=== PATIENT | female | born 1975 | race Two or more races ===

== ENCOUNTER → 2024-06-13 | Outpatient (CLI) | payer MEDICAID, SELFPAY ==
--- NOTE | 2024-06-13 15:00 | XR_ITS ---
Examination: Transvaginal ultrasound of the pelvis, complete Technique: Transvaginal sonographic images pelvis performed using olson scale imaging Exam date and time: June 13, 2024 1517 hours Comparison 03/31/2024 INDICATIONS: 5.8 cm uterine fundal mass on pelvic sonogram report 22/01/2024 pelvic pain 15 years FINDINGS: Uterus 9.0 x 4.9 x 4.4 cm Uterine fundal mass 5.1 x 3.6 x 4.6 cm Endometrial stripe 0.3 cm Right ovary 3.2 x 2.4 x 2.8 cm arterial flow Left ovary 3.8 x 2.8 x 3.4 cm arterial flow mild free fluid adjacent to left ovary IMPRESSION: Uterine fundal mass 5.1 x 3.6 x 4.6 cm, likely fibroid degeneration Mild free fluid adjacent to the left ovary, clinical correlation advised, differential would include ruptured ovarian cyst, pelvic inflammatory disease.
== END | disposition home or self-care (01) ==
PROVIDERS: PCP Obstetrics & Gynecology; Referring Provider Obstetrics & Gynecology; Visit Provider Obstetrics & Gynecology
DX: R19.09 Other intra-abdominal and pelvic swelling, mass and lump (principal)
CPT/HCPCS: 76830

== ENCOUNTER 2024-08-24 17:21 | Inpatient (IN) | payer MEDICAID, SELFPAY ==
--- NOTE | 2024-08-23 07:00 | EKG_ITS ---
[facility] Test Date: 2024-08-23 Pat Name: MARIANN CORDERO Department: Room: - Gender: Female Transit Mixer Driver: RT STUDENT : 1975 Requested By: Fidelia Anand Order Number: [id number] Reading MD: Fidelia Anand Measurements Intervals [place] Rate: 76 P: 13 AK: 175 QRS: -19 QRSD: 93 T: 18 QT: 372 QTc: 420 Interpretive Statements SINUS RHYTHM LOW QRS VOLTAGE IN PRECORDIAL LEADS INCOMPLETE RIGHT BUNDLE BRANCH BLOCK No previous ECG available for comparison /store/S0/[id number]/[id number].pdf
[2024-08-23 07:39] VITALS: BMI 32.9
[2024-08-23 09:13] LABS: Collection Type, Urine Clean Catch
[2024-08-23 09:28] LABS: Bilirubin,Urine Negative (Negative); Blood,Urine Negative (Negative); Clarity,Urine Clear (Clear/Hazy); Color,Urine Lt-Yellow (Lt Yel-Yel); Glucose, Urine Negative (Negative); Ketones,Urine Negative (Negative); Leukocyte Esterase,Urine Negative (Negative); Nitrite,Urine Negative (Negative); Protein,Urine Negative (Neg - Trace); RBC,Urine 3 /hpf (0-3); Specific Gravity,Urine 1.026 (1.001-1.035); Squamous Epithelial Cell,Urine 2 /hpf (0-5); Urobilinogen,Urine Negative mg/dL (0.0-1.0); WBC,Urine < 1 /hpf (0-5)
[2024-08-23 09:35] LABS: Alanine Aminotransferase 32 U/L (10-49); Albumin, Serum 4.5 gm/dL (3.5-5.0); Albumin/Globulin Ratio 1.6 (1.2-2.2); Alkaline Phosphatase 73 U/L (46-116); Anion Gap 9 (7-16); Aspartate Amino Transferase 20 U/L (0-34); BUN/Creatinine Ratio 26 Ratio (12-20); Basophils # (Auto) 0.1 Thou/mm3 (0.0-0.2); Basophils % (Auto) 1 % (0-2.5); Bilirubin,Total 0.4 mg/dL (0.3-1.2); Blood Urea Nitrogen 18 mg/dL (9-23); Calcium 9.4 mg/dL (8.3-10.6); Calcium (Corrected) 9.4 mg/dL (8.5-10.1); Carbon Dioxide 26.3 mMol/L (20.0-31.0); Chloride 102 mMol/L (98-107); Creatinine (Component) 0.7 mg/dL (0.6-1.3); Eosinophils # (Auto) 0.2 Thou/mm3 (0.0-0.5); Eosinophils % (Auto) 2 % (0-10); Estimated Creatinine Clearance 104.9 mL/min (>60); Globulin 2.9 gm/dL (2.3-3.5); Glucose 100 mg/dL (74-106); Hemoglobin 13.7 g/dL (12.0-16.0); Immature Granulocytes % (Auto) 1 % (0-0); Immature Granulocytes Auto 0.08 Thou/mm3 (0.00-0.00); Lymphocytes # (Auto) 2.8 Thou/mm3 (1.0-4.8); Lymphocytes % (Auto) 31 % (10-50); Mean Corpuscular HGB Conc 33.4 g/dl (31.0-37.0); Mean Corpuscular Hemoglobin 29.5 pg (25.0-35.0); Mean Corpuscular Volume 88 fL (80-100); Monocytes # (Auto) 0.7 Thou/mm3 (0.0-0.8); Monocytes % (Auto) 7 % (0-12); Neutrophils # (Auto) 5.3 Thou/mm3 (1.8-7.7); Neutrophils % (Auto) 58 % (37-80); Nucleated Red Blood Cell % 0 /100 WBC (0); Osmolality,Calculated 275 (275-295); Platelet Count 354 Thou/mm3 (140-440); Potassium 4.3 mMol/L (3.4-5.1); RDW Standard Deviation 42.1 fL (36.4-46.3); Red Blood Count 4.64 Miln/mm3 (4.00-5.20); Sodium 137 mMol/L (136-145); Total Protein 7.4 gm/dL (5.7-8.2); White Blood Count 9.1 Thou/mm3 (3.6-11.0); eGFR > 60 See Note
[2024-08-23 09:36] LABS: HCG Qualitative,Urine Negative
[2024-08-24] VITALS (13 sets, daily range): BP systolic 120–161; BP diastolic 82–103; PULSE 92–121; RESP 12–22; TEMP 36–36.6; O2SAT 93–99; BMI 32.8; BMI 35.4
[2024-08-24] MEDS: RINGERS LACTATED 1000 ML 1,000 ML 20 ML IV (12:32)
--- NOTE | 2024-08-24 15:16 | ESOP_ITS ---
Date of Procedure 08/24/24 Pre Op Diagnosis Pelvic adhesions Post Op Diagnosis Pelvic adhesions Injury to sigmoid colon Procedure Lysis of adhesions, repair of sigmoid colon injury Findings Adhesions of small and large bowel into the uterus. A small full-thickness injury to the sigmoid colon that was repaired. No leakages of stool Procedure Description Patient was scheduled for hysterectomy and salpingo-oophorectomy by Dr. Anand for persistent pelvic pain and uterine mass. Upon my arrival into the operating room patient had already undergone general endotracheal anesthesia. She is already had a Pfannenstiel incision. Upon inspection patient was noted to have adhesions of small and large bowel into the uterus. Dr. Anand had already lysed some small bowel adhesions. Upon my inspection there were some adhesions of small bowel into the uterus that was lysed. There was significant and dense adhesions of sigmoid colon into the uterine mass. While lysing the adhesions there was a small approximately 6 mm full-thickness injury to sigmoid colon. There was no evidence of leakage or bleeding. The injury was closed in 2 layer s. The first layer was interrupted sutures using 2-0 Vicryl and that was reinforced with 3-0 silk sutures in a Lembert fashion. There were no further adhesions noted. Hemostasis was adequate and satisfactory at this time. This concluded my portion of the operation. Dr. Aannd will proceed with her hysterectomy and salpingo-oophorectomy and she will be dictating her portion of the operation separately. Anesthesia GETA Pathology / specimen None Estimated Blood Loss 5 Surgeon Magnolia Storey MD Surgical Staff Operation Date: 08/24/24 14:15 Case Staff Anesthesiologist: Stefano Norton RNdairy equipment installer: Pari Griffiths
--- NOTE | 2024-08-24 16:55 | PD.GYNPROC ---
Operative Note - GLASS BENDER Procedure Date of procedure: 08/24/24 Procedure Performed: Total abdominal hysterectomy / Bilateral salpingo-oophorectomy / lysis of adhesions / repair of bowel tear Indication: pelvic pain not responding to conservative treatment Pre-Op diagnosis: pelvic pain uterine fibroid , left ovarian cyst Post-Op diagnosis: pelvic pain . pelvic adhesions , fundal fibroid , endometriotic cyst in the posterior cul desac , adhesions between bowel and adnexa Anesthesia type: General Procedure description: After an informed consent, patient was brought into the operating room. She received general anesthesia, she was prepped and draped in the usual sterile fashion after Watkins catheter was left in situ. Surgical site infection prophylaxis was given. Timeout was done. Surgical team was ready and scrubbed. A Pfannenstiel incision was made, and carried down from skin subcutaneous tissue to the rectus sheath. The rectus sheath was incised laterally, peritoneal cavity entered atraumatically. Uterus was identified by palpation into the peritoneal cavity, there is a fundal fibroid 4 to 5 cm, there is a large bluish cyst in the posterior cul-de-sac about 4 to 5 cm, the small and large bowel is stuck by flimsy and thick adhesions onto the right adnexa , the posterior uterus, there are also some adhesions between the small and large bowel and the left adnexa, these are flimsy and these were just lysed during palpation and exploration of the uterus and adnexa and during exploration. Due to the thick adhesions noted between the large bowel and the adnexa and the posterior uterus, surgical help was sought, and intraoperative consultation obtained from Dr. Storey. Who came in and completed the lysis of adhesions, and also found a small enterotomy hole, and did its repair. Please see his operative note for details. O'Bernard-O'Ragsdale retractor was placed, the uterine fundus is held with double-tooth tenaculum, after the lysis of adhesions , the hysterectomy is begun. The cornual ligaments on the right side and the left side are clamped coagulated and cut with the help of Endo seal. The round ligaments on each side are clamped , coagulated and cut as well with the help of Endo seal device. The uterovesical fold of peritoneum which is thick and adherent, is by sharp dissection and a plane between the bladder and the lower uterine segment and cervix is obtained. The uterine pedicles on both sides at the isthmus, are then clamped with Jorge A clamps, cut and doubly ligated. Successive Jorge A clamps were placed medial to the uterine pedicle on both sides, and the cardinal ligaments, and then the uterosacral ligaments, are both clamped cut and ligated using 0 Vicryl pop-off sutures on either side, until the vaginal angles are reached. Then the uterus with the fibroid and the cervix is removed, the vaginal angles are secured with 0 Vicryl suture, and the vaginal cuff is secured with running and interrupted 0 Vicryl suture. Hemostasis is good. Patient also received IV methylene blue midway during the surgery, the Watkins was clamped, there was no spill of any blue dye into the operative field. This was followed by removing the Watkins clamp, and then both adnexa were removed by clamping cutting and doubly ligating the infundibulopelvic ligaments on both sides, clamping and cutting down as close as possible to the ovary. The Watkins catheter bag is seeing blue-green urine and adequate amount. Irrigation is done. Return is clear. Hemostasis is good. The vaginal angles were suspended with the cardinal ligaments and the uterosacrals on both sides. Surgicel was sprinkled in the posterior cul-de-sac The ureters were palpated on each side and appeared normal. The count was correct for the instrument, sponges and needles The retractor was removed the lap count was correct, peritoneal closure done with 2-0 Vicryl Rectus abdominis muscle approximated with 2-0 Vicryl Fascia closed with 0 Vicryl. With reinforcing sutures. Robert's fascia closed with 3-0 plain catgut. Skin approximated with Monocryl. Perineo dressing applied. Compression dressing applied. Patient sent to recovery in a stable condition. Fluids: crystalloid Specimen: uterus, left tube, right tube, left ovary, right ovary and other (fibroid ) Implants: Surgicell powder Estimated blood loss (ml): 150 Findings: uterus with a 4 to 5 cm fundal fibroid, bowel adhesions ,thick between R adnexa and the small and large bowel , 5 cm endometriotic cyst with hemorrhagic fluid in the posterior cul de sac , evidence od endometriotic blue lesions along the adnexa and along the isthmus Complications: enterotomy Narrative: Due to thick pelvic adhesions between the bowel and adnexa and posterior uterus , surgical consultation was requested from Dr Storey who came in and performed lysis of adhesions for the thicker adhesions and also repaired the enterotomy /Please see his operative note for his part of the surgery Surgical staff Operation Date: 08/24/24 14:15 Case Staff Anesthesiologist: Stefano Norton RNseafood service team member: Pari Griffiths Diagnosis Discharge Diagnosis (1) S/P total abdominal hysterectomy and bilateral salpingo-oophorectomy: Status: Acute Problem details: doing well and appropriately post operatively (2) Status post laparotomy with lysis of adhesions: Status: Acute Problem details: had bowel perforation during lysis of adhesions / endometriosis severe (3) Bowel perforation: Status: Acute Problem details: intraoperative complication and repaired intraoperatively (4) Endometriosis of bilateral fallopian tubes, unspecified depth: Status: Acute Problem details: and also ovaries and pelvis with thick adhesions and had definitive surgery for it this admission Problem List Completed Was Problem List Reviewed/Reconciled?: Yes
--- NOTE | 2024-08-24 17:03 | SUR.PHASEI ---
Pt. arrived to recovery via bed, eyes closed, responds to verbal commands, VSS, no c/o pain or nausea, pt. states I am thirsty , explained to pt. Dr. Anand ordered strict NPO for right now. Lung sounds clear, equal expansion oumar., pt. receiving 5 liters 02 via NC, dressing to lower abdomen, leslie, telfa, fluffs and metaport tape intact, no active bleeding or redness noted, pt. has espitia catheter in place, light blue fluid in collection bag. Report received from Patrick BRICE and Dr. Norton.
--- NOTE | 2024-08-24 18:04 | SUR.PHASEI ---
Called and gave report on pt. s/p surgery to Rahel BRICE on M/S unit.
[2024-08-24] MEDS: RINGERS LACTATED 1000 ML 1,000 ML 125 ML IV (18:08)
[2024-08-24] MEDS: Morphine Sulfate PF 1 MG/ML PCA VIAL 30 ML 30 MG IV (18:19)
--- NOTE | 2024-08-24 18:41 | SUR.PHASEI ---
Transferred pt. to room 371 via bed with all of belongings, VSS, set up ACCOUNTING METHODS ANALYST pump for pain management and educated pt. on use of button, IV flushed and patent, dressing to lower abdomen CDI, scant amount of bright red blood to yasmany-pad, espitia catheter in place. Rahel BRICE assumed care of pt.
[2024-08-24] MEDS: SODIUM CHLORIDE 0.9% IV (20:01)
[2024-08-24] MEDS: CEFOTETAN IV (20:01)
[2024-08-24] MEDS: HYDROmorphone INJ 2 MG/ML VIAL 1 MG IV (20:11)
[2024-08-25] VITALS (7 sets, daily range): BP systolic 112–115; BP diastolic 72–79; PULSE 90–97; RESP 12–19; TEMP 36.2–36.6; O2SAT 95–98; BMI 35.4
[2024-08-25] MEDS: CEFOXITIN 2 GM in SODIUM CHLORIDE 0.9% (Popper) 50 ML IV ×4 (00:03→17:38)
[2024-08-25] MEDS: HYDROmorphone INJ 2 MG/ML VIAL 1 MG IV ×2 (00:25→06:01)
[2024-08-25] MEDS: RINGERS LACTATED 1000 ML 1,000 ML 125 ML IV ×2 (02:58→11:18)
--- NOTE | 2024-08-25 04:24 | PC.NURSE ---
feminine pad with small amount of blood- Laura care done, changed pad.
[2024-08-25 05:09] LABS: Basophils % (Auto) 0 % (0-2.5); Eosinophils % (Auto) 0 % (0-10); Hematocrit 36.3 % (36.0-46.0); Hemoglobin 12.4 g/dL (12.0-16.0); Immature Granulocytes % (Auto) 1 % (0-0); Immature Granulocytes Auto 0.09 Thou/mm3 (0.00-0.00); Lymphocytes # (Auto) 1.5 Thou/mm3 (1.0-4.8); Lymphocytes % (Auto) 13 % (10-50); Mean Corpuscular HGB Conc 34.2 g/dl (31.0-37.0); Mean Corpuscular Hemoglobin 29.6 pg (25.0-35.0); Mean Corpuscular Volume 87 fL (80-100); Monocytes # (Auto) 0.9 Thou/mm3 (0.0-0.8); Monocytes % (Auto) 8 % (0-12); Neutrophils % (Auto) 78 % (37-80); Nucleated Red Blood Cell % 0 /100 WBC (0); Platelet Count 314 Thou/mm3 (140-440); Red Blood Count 4.19 Miln/mm3 (4.00-5.20); White Blood Count 11.5 Thou/mm3 (3.6-11.0)
[2024-08-25 05:55] LABS: Albumin, Serum 3.8 gm/dL (3.5-5.0); Anion Gap 10 (7-16); BUN/Creatinine Ratio 19 Ratio (12-20); Blood Urea Nitrogen 13 mg/dL (9-23); Calcium 8.4 mg/dL (8.3-10.6); Calcium (Corrected) 8.6 mg/dL (8.5-10.1); Carbon Dioxide 24.7 mMol/L (20.0-31.0); Chloride 103 mMol/L (98-107); Creatinine (Component) 0.7 mg/dL (0.6-1.3); Estimated Creatinine Clearance 109.3 mL/min (>60); Glucose 132 mg/dL (74-106); Osmolality,Calculated 277 (275-295); Phosphorous 3.2 mg/dL (2.4-5.1); Sodium 138 mMol/L (136-145); eGFR > 60 See Note
[2024-08-25] MEDS: KETOROLAC INJ 30 MG/ML VIAL IVP ×2 (11:18→19:53)
--- NOTE | 2024-08-25 12:04 | PD.SURPROG ---
Documentation for date of: 08/25/24 Subjective Subjective Narrative: Patient is seen and examined. She is resting comfortably. She is complaining of pain, controlled with OR ASSISTANT. She denies nausea or vomiting. She has not passed flatus or bowel movement yet Exam Vital Signs Temp Pulse Resp BP Pulse Ox O2 Del Method O2 Flow Rate 98 F 100 12 147/90 H 97 Nasal Cannula 1 08/24/24 20:00 08/24/24 23:16 08/25/24 07:00 08/24/24 20:00 08/24/24 23:16 08/24/24 20:00 08/24/24 23:16 Constitutional Constitutional: no acute distress Routine Abdominal Exam Comments: Abdomen is soft and mildly distended. She has hypoactive bowel sounds. Incision with dressings clean, dry and intact Assessment & Plan Assessment Additional comments: Postop day #1 status post FAMILIA/BSO, lysis of adhesions and repair of sigmoid injury Plan Continue IV antibiotics. Will keep n.p.o. Start clear liquids tomorrow. Increase ambulation and start using incentive spirometer Procedures Procedures Lysis of adhesions, repair of sigmoid colon injury
[2024-08-25] MEDS: ASCORBIC ACID 250 MG TABLET 500 MG PO ×2 (12:29→21:54)
[2024-08-25] MEDS: ZINC SULFATE 220 MG CAPSULE PO (12:29)
[2024-08-25] MEDS: DOCUSATE SOD 100 MG CAPSULE PO ×2 (12:29→21:54)
--- NOTE | 2024-08-25 13:34 | PC.SS ---
Patient Lona Pickard is a 49 Year old male admitted for Total ABD [id number]. SS met with patient at bedside to review Demographic information. Patient report that she lives at home with her , Lew Rod who she reports is surrogate decision maker, [phone]. Choice of pharmacy is [facility]. Patient's PCP is Angely Devi. Patient reports she does not utilize any source of DME to assist with ambulation. At time of discharge patient will return home. SS will stand by for further needs. Nexrt of Kin, , Lew Rod [phone] Discharge plan: Home
[2024-08-25] MEDS: ONDANSETRON INJ 2 MG/ML INJ 2 ML 4 MG IV ×2 (15:28→21:56)
--- NOTE | 2024-08-25 16:17 | ESPR_ITS ---
Documentation for date of: 08/25/24 GROUNDS/MAINTENANCE SPECIALIST Subjective Subjective Subjective: patient reports feeling better, pain is well controlled, patient reports nausea and other (not passed flatus yet / feels burps / nausea better after Zofran , voiding urine spontaneously. ) Exam Vital Signs Temp Pulse Resp BP Pulse Ox O2 Del Method O2 Flow Rate 97.8 F 90 14 114/72 95 Room Air 1 08/25/24 12:00 08/25/24 12:00 08/25/24 15:00 08/25/24 12:00 08/25/24 12:00 08/25/24 12:00 08/24/24 23:16 Narrative Exam Patient reports feeling fine she said before surgery she used to have a lot of back pain and lower abdominal pain and that is feeling better. She feels like she has gas in her belly and she is burping, but she has not passed flatus yet Explained to the patient and spouse the presence of thick adhesions between the back of the uterus and the adnexa posterior peritoneum and bowel and intestines, possibly during the separation of the intestines bowel and the posterior surface of the uterus and the posterior adnexa small perforation happened on to the intestine. Questions answered. They took the explanation well. Constitutional Constitutional: no acute distress, obese and cooperative Routine Neck Exam Neck: Present supple and full ROM Routine Respiratory Exam Respiratory: Present chest non-tender, lungs clear, normal breath sounds, no resp distress and CTA bilaterally Routine Cardiovascular Exam Cardiovascular: Present RRR Routine Abdominal Exam Abdominal: Present soft Comments: Hypoactive sounds, tenderness appropriate, no rebound or guarding Routine Back/Spine/Pelvis Exam Back/Spine: Present full ROM and warmth Comments: No CVA angle tenderness Routine Skin Exam Skin: Present intact and normal turgor Routine Neurological Exam Neurological: Present alert, oriented X3, CN II-XII intact, moving all extremities and normal tone Routine Psychiatric Exam Psychiatric: Present normal affect and cooperative Urinary Catheter Management Cath placed during this visit: yes, but has since been removed by the nurse Removal date: 08/25/24 Removal time: 07:25 GROUNDS/MAINTENANCE SPECIALIST - PN: Obj Data Labs 08/25/24 04:26 08/25/24 04:26 Labs: Laboratory Results - last 24 hr 08/25/24 04:26 WBC 11.5 H RBC 4.19 Hgb 12.4 Hct 36.3 MCV 87 MCH 29.6 MCHC 34.2 RDW Std Deviation 41.0 Plt Count 314 D Neut % (Auto) 78 Lymph % (Auto) 13 [place] % (Auto) 8 Eos % (Auto) 0 Baso % (Auto) 0 Neut # (Auto) 9.0 H Lymph # (Auto) 1.5 [place] # (Auto) 0.9 H Eos # (Auto) 0.0 Baso # (Auto) 0.0 Immature Gran # (Auto) 0.09 H Absolute Nucleated RBC 0.00 Immature Gran % 1 H Nucleated RBC % 0 Sodium 138 Potassium 4.0 Chloride 103 Carbon Dioxide 24.7 Anion Gap 10 BUN 13 Creatinine 0.7 Estim Creat Clear Calc 109.3 eGFR > 60 BUN/Creatinine Ratio 19 Glucose 132 H Calculated Osmolality 277 Calcium 8.4 Corrected Calcium 8.6 Phosphorus 3.2 Albumin 3.8 D GROUNDS/MAINTENANCE SPECIALIST - A/P Postoperative Procedures: Procedures Operation Date: 08/24/24 14:15 Actual Procedure Side Surgeon p Hysterectomy, Abdominal Poss BSO Fidelia Anand MD FAMILIA/BSO/lysis of adhesions and small enterotomy repair Postoperative day: 1 Postoperative status: doing well Postoperative plan: see orders and ambulate Time Spent With Patient Time: Total time spent is greater than 50% in coordination of care (as documented) at patient's floor/unit and/or counseling patient: Time with patient: 25 - 35 minutes
--- NOTE | 2024-08-25 17:07 | PD.ANESPROG ---
Documentation for date of: 08/25/24 POST ANESTHESIA NOTE: Patient had GETA for hysterectomy related surgery yesterday. I saw her briefly earlier today afternoon in 371 with her family visitors at bedside and she was standing up by bedside, NAD, denied any problems from anesthesia. Stefaon Norton MD Anesthesia Progress Note Progress Note Most recent Vital Signs: Last Vital Signs Temp 97.1 F 08/25/24 16:00 Pulse 95 08/25/24 16:00 Resp 18 08/25/24 16:00 BP 112/72 08/25/24 16:00 Pulse Ox 96 08/25/24 16:00 O2 Del Method Nasal Cannula 08/25/24 16:00 O2 Flow Rate 2 08/25/24 16:00
[2024-08-26] VITALS (10 sets, daily range): BP systolic 111–137; BP diastolic 73–86; PULSE 85–101; RESP 11–18; TEMP 36.1–37.1; O2SAT 93–98
[2024-08-26] MEDS: CEFOXITIN 2 GM in SODIUM CHLORIDE 0.9% (Popper) 50 ML IV ×4 (00:09→18:37)
[2024-08-26] MEDS: RINGERS LACTATED 1000 ML 1,000 ML 75 ML IV (01:47)
[2024-08-26] MEDS: KETOROLAC INJ 30 MG/ML VIAL IVP ×2 (02:26→11:05)
--- NOTE | 2024-08-26 07:04 | PD.SURPROG ---
Documentation for date of: 08/26/24 Subjective Subjective Narrative: Patient was seen and examined. She is feeling better today. She started passing flatus and had bowel movement. Exam Vital Signs Temp Pulse Resp BP Pulse Ox O2 Del Method O2 Flow Rate 98.1 F 89 14 119/73 97 Nasal Cannula 2 08/26/24 04:00 08/26/24 04:00 08/26/24 04:00 08/26/24 04:00 08/26/24 04:00 08/26/24 04:00 08/26/24 04:00 Constitutional Constitutional: no acute distress Routine Abdominal Exam Comments: Abdomen is soft and nondistended. Incision is clean, dry and intact. She has active bowel sounds Assessment & Plan Assessment Additional comments: Postop day #2 status post FAMILIA/BSO, lysis of adhesions and repair of sigmoid injury Plan Will start patient on clear liquids today and advance to full liquids later today Procedures Procedures Lysis of adhesions, repair of sigmoid colon injury
--- NOTE | 2024-08-26 07:58 | PC.NURSE ---
Pt. complaining of the migraine pain and upon speaking of the family what medication they take at home the pt. mention she took one right now. Dr. Anand has been notified about the medication name sYDOLIL AND THE DOSAGE SRENGTH 1MG/50MG/400MG PER PT. PT. SHE TOOK ONE PILL. The teaching has been reenforced to the pt. not to take any medication brought in from outside. let the staff know so they can communicate with the doctor and get something precribed by the DrBartolome. The risk and benifits have been explained. Pt. verbalize understanding.
[2024-08-26] MEDS: ASCORBIC ACID 250 MG TABLET 500 MG PO ×2 (08:58→20:59)
[2024-08-26] MEDS: ZINC SULFATE 220 MG CAPSULE PO (08:58)
[2024-08-26] MEDS: DOCUSATE SOD 100 MG CAPSULE PO ×2 (08:58→21:01)
--- NOTE | 2024-08-26 10:20 | ESPR_ITS ---
Documentation for date of: 08/26/24 CHIEF LOAD DISPATCHER Subjective Subjective Subjective: patient reports feeling better Exam Vital Signs Temp Pulse Resp BP Pulse Ox O2 Del Method O2 Flow Rate 97.4 F 87 16 137/78 H 97 Room Air 1 08/26/24 08:00 08/26/24 08:24 08/26/24 08:24 08/26/24 08:00 08/26/24 08:24 08/26/24 08:00 08/26/24 08:24 Constitutional Constitutional: no acute distress Routine Respiratory Exam Respiratory: Present chest non-tender, lungs clear, normal breath sounds, no resp distress and CTA bilaterally Routine Neurological Exam Neurological: Present alert, oriented X3, CN II-XII intact and moving all extremities Routine Psychiatric Exam Psychiatric: Present normal affect, normal thought process, cooperative, good insight and good judgment Urinary Catheter Management Cath placed during this visit: yes, but has since been removed by the nurse Removal date: 08/25/24 Removal time: 07:25 CHIEF LOAD DISPATCHER - PN: Obj Data Labs 08/25/24 04:26 08/25/24 04:26 Impressions Impression: started clears po today CHIEF LOAD DISPATCHER - A/P Assessment and plan (1) S/P total abdominal hysterectomy and bilateral salpingo-oophorectomy: Problem details: doing well and appropriately post operatively Status: Acute (2) Status post laparotomy with lysis of adhesions: Problem details: had bowel perforation during lysis of adhesions / endometriosis severe Status: Acute (3) Bowel perforation: Problem details: intraoperative complication and repaired intraoperatively Status: Acute (4) Endometriosis of bilateral fallopian tubes, unspecified depth: Problem details: and also ovaries and pelvis with thick adhesions and had definitive surgery for it this admission Status: Acute Postoperative Procedures: Procedures Operation Date: 08/24/24 14:15 Actual Procedure Side Surgeon p Hysterectomy, Abdominal Poss BSO Fidelia Anand MD Time Spent With Patient Time: Total time spent is greater than 50% in coordination of care (as documented) at patient's floor/unit and/or counseling patient:
[2024-08-26] MEDS: HYDROmorphone INJ 2 MG/ML VIAL 1 MG IV (21:04)
[2024-08-27] VITALS: BP 102/65; PULSE 94; RESP 18; TEMP 36.8; O2SAT 96
[2024-08-27] MEDS: CEFOXITIN 2 GM in SODIUM CHLORIDE 0.9% (Popper) 50 ML IV ×4 (00:01→17:41)
[2024-08-27 04:00] VITALS: BP 126/79; PULSE 82; RESP 18; TEMP 37; O2SAT 98
[2024-08-27] MEDS: IBUPROFEN TAB 600 MG TABLET PO ×2 (05:16→13:41)
[2024-08-27 08:00] VITALS: BP 120/90; PULSE 87; RESP 17; TEMP 36.2; O2SAT 95
[2024-08-27] MEDS: ASCORBIC ACID 250 MG TABLET 500 MG PO (08:52)
[2024-08-27] MEDS: DOCUSATE SOD 100 MG CAPSULE PO (08:53)
[2024-08-27] MEDS: ZINC SULFATE 220 MG CAPSULE PO (08:53)
--- NOTE | 2024-08-27 10:02 | ESDS_ITS ---
Planned Discharge Date 08/27/24 DS: Providers Provider Date of admission: 08/24/24 17:21 Primary care physician: MADELAINE Tabares([facility]) Admitting Provider: Fidelia Anand MD Attending Provider on Admission: Fidelia Anand MD Consults: 08/24/24 20:28 Consult Diabetic Routine Comment: 08/24/24 20:29 Referral Registered Dietitian Routine Comment: 08/24/[address] Storey Attending Provider on DC: Fidelia Anand MD Discharging Provider: Fidelia Anand MD Anticipated date of discharge: 08/27/24 DS: Diagnosis Discharge Diagnosis (1) Endometriosis of bilateral fallopian tubes, unspecified depth: Status: Acute (2) Bowel perforation: Status: Acute Assessment & Plan: repaired intraoperatively and post operatively patient did well and had return of bowel function (3) Status post laparotomy with lysis of adhesions: Status: Acute Assessment & Plan: feels better and pelvic pain is better (4) S/P total abdominal hysterectomy and bilateral salpingo-oophorectomy: Status: Acute Assessment & Plan: doing well (5) Abdominal pain: Status: Acute Assessment & Plan: improved a lot Problem List Completed Was Problem List Reviewed/Reconciled?: Yes Hospital Course Hospital Course Hospital course: FAMILIA/BSO and lysis of adhesions and sigmoid injury repair on 08/24/2024 NPO for 36 hours and had return of bowel function and doing well at discharge walking has sponataneous voiding and return of bowel function Status at Discharge Cognitive/behavioral status at discharge: good insight and judgement , cooperative , feeling better Functional status at discharge: independent ambulation Overall status at discharge: patient is progressing back to baseline Time Spent with Patient Time attestation: Total time spent providing and/or coordinating discharge services: Time spent: Greater than 30 minutes Specific discharge activities: avoid constipation , add stool softeners and add vegetables to diet for fibre Quality: VTE Deep Vein Thrombosis/Pulmonary Embolism Present on Admission: No Exam - RETIREMENT MANAGER Vital Signs Temp Pulse Resp BP Pulse Ox O2 Del Method O2 Flow Rate 97.2 F 87 17 120/90 H 95 Room Air 1 08/27/24 08:00 08/27/24 08:00 08/27/24 08:00 08/27/24 08:00 08/27/24 08:00 08/27/24 08:00 08/26/24 23:44 Narrative Exam doing well , using abdominal binder No CVAT , voiding and has had a Bowel movement and vaginal bleeding is minimal , VSS Constitutional Constitutional: no acute distress, average body habitus, obese and cooperative Routine Respiratory Exam Respiratory: Present chest non-tender, lungs clear, normal breath sounds, no resp distress and CTA bilaterally Routine Cardiovascular Exam Cardiovascular: Present RRR Routine Abdominal Exam Abdominal: Present soft and normoactive bowel sounds Comments: appropriate tenderness / No rebound or guarding or rigidity Incision C, D and Intact Has perineo dressing on Routine Exam Comments: normal groin and external genital exam Routine Extremities Exam Extremities: Present full ROM, pulses intact and normal capillary refill Routine Back/Spine/Pelvis Exam Back/Spine: Present full ROM and CVA tenderness (no CVAT) Routine Skin Exam Skin: Present intact and normal turgor Routine Neurological Exam Neurological: Present alert, oriented X3, CN II-XII intact, normal reflexes and vision grossly intact Routine Psychiatric Exam Psychiatric: Present normal affect, cooperative, good insight and good judgment Discharge Plan Problem List Was Problem List Reviewed/Reconciled?: Yes Plan Patient Disposition: HOME (Self Care) Prescriptions/Referrals Prescriptions/Med Rec: No Action omeprazole 40 mg capsule,delayed release(DR/EC) 40 mg PO DAILY Patient Comments: take 1 capsule by mouth once daily BEFORE A MEAL fluoxetine 20 mg capsule 20 mg PO DAILY Patient Comments: take 1 capsule by mouth every morning acetaminophen [Acetaminophen Extra Strength] 500 mg tablet 1,000 mg PO Q6H PRN (Reason: pain) cholecalciferol (vitamin D3) [Vitamin D3] 50 mcg (2,000 unit) tablet 10,000 unit PO QWEEK atorvastatin 40 mg tablet 10 mg PO HS Patient Comments: take 1 tablet by mouth once daily Nurtec ODT 75 mg tablet,disintegrating Patient Comments: PLACE 1 TABLET BY TRANSLINGUAL ROUTE ON TOP OF THE TONGUE AND ALL... (REFER TO PRESCRIPTION NOTES). Referrals: Angely Devi FNP ([facility]) [Primary Care Provider] - Patient/Caregiver Discharge Instructions Print Language: Dutch Stand Alone Forms: Katherin Award Info., Patient Portal Info Letter
[2024-08-27 12:00] VITALS: BP 122/78; PULSE 79; RESP 18; TEMP 36.8; O2SAT 99
[2024-08-27 13:44] VITALS: PULSE 87; RESP 18; O2SAT 97
[2024-08-27 16:00] VITALS: BP 113/81; PULSE 86; RESP 18; TEMP 36; O2SAT 96
== END 2024-08-27 18:28 | disposition home or self-care (01) | DRG 513 ==
PROVIDERS: Admitting Provider Obstetrics & Gynecology; PCP Nurse Practitioner Primary Care; Visit Provider Obstetrics & Gynecology
PROC: 0UT90ZZ Resection of Uterus, Open Approach (ICD-10-PCS; principal; 2024-08-24 14:00)
DX: N73.6 Female pelvic peritoneal adhesions (postinfective) (principal); K66.0 Peritoneal adhesions (postprocedural) (postinfection); N80.203 Endometriosis of bilateral fallopian tubes, unspecified depth; N83.202 Unspecified ovarian cyst, left side; D25.9 Leiomyoma of uterus, unspecified; K63.1 Perforation of intestine (nontraumatic)
CPT/HCPCS: 36415; 80053; 80069; 81001; 81025; 85025; 86850; 86900; 86901; 93005; 94664; A4217; A4649; J0131; J0690; J0694; J1100; J1885; J2270; J2405; J2704; J3010; J3490; J7050; J7120; Q9968; A9270; S0074

== ENCOUNTER 2024-09-01 12:53 | Emergency (ER) | payer MEDICAID, SELFPAY ==
[2024-09-01] VITALS (7 sets, daily range): BP systolic 111–129; BP diastolic 78–89; PULSE 91–129; RESP 13–23; TEMP 36.8–37.3; O2SAT 96–99; BMI 30.7
--- NOTE | 2024-09-01 13:08 | XR_ITS ---
Examination: CT abdomen and pelvis without contrast. Coronal 3-D reconstructions. Sagittal 2-D reconstructions. Date and time of exam:September 01, 2024 1346 hrs. Comparison February 02, 2024 Indications: Status post hysterectomy one week ago followed by a lower abdominal pain CTDI: vol (mGy): 10.6 DLP: (mGycm): 626 Technique: Axial images of the abdomen have been obtained, 3 mm slice thickness Intravenous contrast material has not been administered. Low dose protocols were performed. One or more of the following dose reduction techniques were used; automated exposure control, adjustment of the mA and/or KV according to patient size, use of iterative reconstruction technique. Findings: Diffuse fatty infiltration throughout the liver Absent gallbladder Spleen not enlarged No pancreatic or adrenal mass No renal or ureteral calculi, no hydronephrosis Aorta normal size Appendix is not diagnostically visualized Colonic diverticulosis, acute sigmoid diverticulitis with large pelvic abscess AP dimension 10 cm mediolateral dimension 7.9 cm Urinary bladder contracted Subcentimeter multiple periaortic pericaval lymph nodes, the largest 9 mm Bilateral common iliac lymph nodes, the largest 11 mm Impression: Acute sigmoid diverticulitis Large pelvic peridiverticular abscess, at least 10 x 7.9 cm Abdominal and pelvic lymphadenopathy, clinical correlation advised
--- NOTE | 2024-09-01 13:08 | PD.EDRME ---
Rapid Medical Screening Exam RME Arrival date/time: 09/01/24 12:53 49-year-old female with a history of hyperlipidemia, and a total hysterectomy in the repair of sigmoid injury that was done on the of this month presents to the emergency room with a chief complaint of 10 out of 10 left lower quadrant abdominal pain and tenderness, fevers, dysuria x 2 days I have greeted and performed a focused initial assessment of this patient. A comprehensive ED assessment and evaluation of the patient, analysis of all test results, and completion of the medical decision making process will be conducted by additional ED providers. Chief Complaint: Abdominal Pain Vital signs: Vital Signs Temperature 99.1 F 09/01/24 13:04 Pulse Rate 129 H 09/01/24 13:04 Respiratory Rate 18 09/01/24 13:04 Blood Pressure 129/79 09/01/24 13:04 Pulse Oximetry (%) 99 09/01/24 13:04 Oxygen Delivery Method Room Air 09/01/24 13:04 Vital signs reviewed by provider: Yes
[2024-09-01 13:41] LABS: Lactate (Lactic Acid) 1.7 mMol/L (0.4-2.0)
[2024-09-01 13:46] LABS: Basophils # (Auto) 0.1 Thou/mm3 (0.0-0.2); Basophils % (Auto) 1 % (0-2.5); Eosinophils # (Auto) 0.3 Thou/mm3 (0.0-0.5); Eosinophils % (Auto) 4 % (0-10); Hematocrit 34.3 % (36.0-46.0); Hemoglobin 11.7 g/dL (12.0-16.0); Immature Granulocytes % (Auto) 2 % (0-0); Immature Granulocytes Auto 0.16 Thou/mm3 (0.00-0.00); Lymphocytes % (Auto) 13 % (10-50); Mean Corpuscular HGB Conc 34.1 g/dl (31.0-37.0); Mean Corpuscular Hemoglobin 29.7 pg (25.0-35.0); Mean Corpuscular Volume 87 fL (80-100); Monocytes # (Auto) 0.8 Thou/mm3 (0.0-0.8); Monocytes % (Auto) 11 % (0-12); Neutrophils # (Auto) 5.2 Thou/mm3 (1.8-7.7); Neutrophils % (Auto) 70 % (37-80); Nucleated Red Blood Cell % 0 /100 WBC (0); Platelet Count 430 Thou/mm3 (140-440); RDW Standard Deviation 41.3 fL (36.4-46.3); Red Blood Count 3.94 Miln/mm3 (4.00-5.20); White Blood Count 7.5 Thou/mm3 (3.6-11.0)
[2024-09-01 14:09] LABS: Alanine Aminotransferase 96 U/L (10-49); Albumin, Serum 4.5 gm/dL (3.5-5.0); Albumin/Globulin Ratio 1.6 (1.2-2.2); Alkaline Phosphatase 185 U/L (46-116); Anion Gap 10 (7-16); Aspartate Amino Transferase 39 U/L (0-34); BUN/Creatinine Ratio 16 Ratio (12-20); Bilirubin,Total 0.4 mg/dL (0.3-1.2); Blood Urea Nitrogen 11 mg/dL (9-23); Calcium 9.4 mg/dL (8.3-10.6); Calcium (Corrected) 9.4 mg/dL (8.5-10.1); Carbon Dioxide 23.8 mMol/L (20.0-31.0); Chloride 105 mMol/L (98-107); Creatinine (Component) 0.7 mg/dL (0.6-1.3); Estimated Creatinine Clearance 105.1 mL/min (>60); Globulin 2.9 gm/dL (2.3-3.5); Glucose 125 mg/dL (74-106); Osmolality,Calculated 277 (275-295); Potassium 3.9 mMol/L (3.4-5.1); Procalcitonin 0.09 ng/ml (0.0-0.49); Sodium 139 mMol/L (136-145); Total Protein 7.4 gm/dL (5.7-8.2); eGFR > 60 See Note
[2024-09-01 14:17] LABS: Collection Type, Urine Clean Catch
[2024-09-01 14:35] LABS: Amorphous Crystals,Urine Present (Absent); Bacteria,Urine Rare; Bilirubin,Urine Negative (Negative); Blood,Urine Trace (Negative); Clarity,Urine Clear (Clear/Hazy); Color,Urine Yellow (Lt Yel-Yel); Glucose, Urine Negative (Negative); Ketones,Urine Negative (Negative); Leukocyte Esterase,Urine Negative (Negative); Nitrite,Urine Negative (Negative); Protein,Urine 1+ (Neg - Trace); RBC,Urine 16 /hpf (0-3); Specific Gravity,Urine 1.032 (1.001-1.035); Squamous Epithelial Cell,Urine 2 /hpf (0-5); WBC,Urine 3 /hpf (0-5)
--- NOTE | 2024-09-01 15:06 | EDNOTE_ITS ---
ED Abdominal Pain RME/HPI General Chief Complaint: Abdominal Pain Stated complaint: Abdominal pain, nausea Time seen by provider: 09/01/24 13:46 Arrival date/time: 09/01/24 12:53 RME / HPI RME / HPI narrative: 09/01/24 12:53 49-year-old female with a history of hyperlipidemia, and a total hysterectomy in the repair of sigmoid injury that was done on the of this month presents to the emergency room with a chief complaint of 10 out of 10 left lower quadrant abdominal pain and tenderness, fevers, dysuria x 2 days I have greeted and performed a focused initial assessment of this patient. A comprehensive ED assessment and evaluation of the patient, analysis of all test results, and completion of the medical decision making process will be conducted by additional ED providers. DR. QUINTERO MAIN ED EVALUATION: 49 year old female who is s/p total hysterectomy and bilateral salpingo- oophorectomy performed by Dr. Anand on 08/24/2024 and lysis of adhesions and repair of injury to sigmoid colon performed by Dr. Storey on 08/24/2024 presents to the ED for evaluation of abdominal pain today. States after surgery she was admitted for 3-days and doing well during admission. However, reports since charlene g home 5 days ago Wednesday, the pain is worsening. Not improving with taking Ibuprofen and [place] at home. Accompanied by fevers, chills, and sweating. Related Data Home Medications ?Medication ?Instructions ?Recorded ?Confirmed acetaminophen 500 mg tablet 1,000 mg PO Q6H PRN pain 0 08/23/24 08/24/24 (Acetaminophen Extra Strength) atorvastatin 40 mg tablet 10 mg PO HS 08/23/24 5 cholecalciferol (vitamin D3) 50 10,000 unit PO QWEEK 0 08/23/24 08/24/24 mcg (2,000 unit) tablet (Vitamin D3) fluoxetine 20 mg capsule 20 mg PO DAILY 08/23/2408/06 omeprazole 40 mg capsule,delayed 40 mg PO DAILY 08/24/24 release rimegepant 75 mg disintegrating mg 08/26/24 tablet (Nurtec ODT) Allergies Allergy/AdvReac Type Severity Reaction Status Date / Time No Known Allergies Allergy Verified 09/01/24 13:00 Review of Systems Review of Systems Narrative Review of Systems: Constitutional: SEE HPI +Fevers, chills , sweats Eyes: DENIES; Loss of vision Head/Ear/Nose: DENIES; Loss of hearing Throat: DENIES; Dysphagia Cardiovascular: DENIES; Chest pain, dyspnea or syncope Respiratory: DENIES; Shortness of breath Gastrointestinal: SEE HPI +abd pain DENIES; Rectal bleeding or melena. Genitourinary: DENIES; Dysuria (painful or difficult urination) Musculoskeletal: DENIES; Arthralgia (pain in a joint),; Skin: DENIES; Rash Neurological: DENIES; Loss of function or movement Psychiatric: DENIES; recent major life stressor, emotional problem, illicit drug use or abuse Endocrinology: DENIES; Weight change Hematologic/Lymphatic: DENIES; Abnormal bruising Allergic/Immunologic: DENIES; Urticaria (hives) Past Medical History Past Medical History NEUROLOGIC: Positive Neurological Disorders and Migraine CARDIAC: Positive Cardiac Disorders and Hypercholesterolemia GASTROINTESTINAL: Positive Gastrointestinal Disorders, Diverticulitis and Obesity REPRODUCTIVE: Positive Previous Pregnancies (3, one child) MUSCULOSKELETAL: Positive Musculoskeletal Disorders PSYCHO/SOCIAL: Positive Anxiety (mild) OTHER HISTORY: Positive Hospitalization (Abdominal pain) Family History FAMILY HISTORY: Positive Family Cardiac Disorders and Family Surgery Surgical History SURGICAL: Positive Abdominal Surgery, Hysterectomy (this admission 08/24/24 a bdominal hysterectomy) and Section (x1) Social History SMOKING STATUS: Never smoker SECOND HAND EXPOSURE: No ED Exam Narrative Physical exam: Physical Exam: General: The vital signs were reviewed. The patient is non-toxic, in no apparent distress and appears healthy with a patent airway, no respiratory distress and has no apparent circulatory problems. Head & Scalp: Normocephalic, atraumatic. Face: Appears normal and is without lesions, deformity. Ears: Left external pinna appears normal. Right external pinna appears normal. Eyes: The sclera is anicteric. No obvious photophobia. The Left and Right Orbit/Lid/Conjunctiva appears normal without swelling, discoloration or injection. Nose: The nose is without deformity, discharge or tenderness; Throat: Appears normal. The mucous membranes are pink and moist without exudates, redness or mass seen. The tongue appears normal. Neck: The neck is supple and no apparent mass or adenopathy. Chest: The chest wall is normal in size and symmetry and has no chest wall tenderness or crepitus. The patient displays normal ventilator effort without retractions, accessory muscle use and has adequate air movement bilaterally with no wheezes and no rales. Cardiovascular: Regular rate and rhythm; No murmurs, rubs, or gallops; Gastrointestinal: The abdomen appears normal. But has a binder in place there is ecchymosis along the lower margin with exquisite pain No obvious hernias or mass. The a the upper abdomen seems to be soft and benign Bowel sounds are present and normal sounding. No CVA tenderness. Genitourinary: Back/Spine: Extremities/Musculoskeletal/lymphatic: The bilateral upper and lower extremities are warm. There is no evidence of arterial insufficiency. There is no evidence of venous insufficiency/edema. The patient spontaneously moves bilateral upper and lower extremities with no pain and no limitation of movement. There is no apparent, injury or trauma. Skin: The skin is warm, dry and intact. No rashes. No petechia. No purpura. No abnormal bruising. The color is appropriate with no cyanosis. Mental status/Psychiatric: Mental status is appropriate for age. The patient has no apparent delusions, visual hallucinations, no apparent audible hallucinations. The patient has no apparent suicidal thoughts/ideation and no apparent homicidal thoughts/ideation. Neurological: The patient is awake, alert, interactive, cordial, cooperative and is oriented to name and situation. The patient follows commands and answers historical question with no impairment. There is no visual disturbance apparent. The pupils are equal and reactive bilaterally with normal eye movements and no diplopia The bilateral upper and lower extremities have normal strength, normal range of motion and normal functioning. The gait, station and balance appear to be baseline with no acute change Course Quality Measures none Orders Category Date Time Status Transfer to another facility [Transfer/Discharge] Stat Discharge 09/01/24 15:[address] abdomen pelvis wo con Stat Exams 09/01/24 13:08 Completed Blood Culture (Lab) Stat Lab 09/01/24 13:22 Received CBC Stat Lab 09/01/24 13:19 Completed CMP [Comprehensive Metabolic Panel] Stat Lab 09/01/24 13:19 Completed Lactate (Lactic Acid) Stat Lab 09/01/24 13:19 Completed Procalcitonin Stat Lab 09/01/24 13:19 Completed UA [Urinalysis] Stat Lab 09/01/24 14:10 Completed Urine Culture Stat Lab 09/01/24 14:10 Received Morphine Inj Med 09/01/24 15:21 Discontinued 4 mg IVP X1 ONE Ondansetron Inj [Zofran Inj] Med 09/01/24 15:21 Discontinued 4 mg IV X1 ONE Piper/Tazo Inj [Zosyn Inj] 3.375 gm Med 09/01/24 15:21 Discontinued SODIUM CHLORIDE 0.9% (Popper) [NS 0.9% (Popper)] 50 ml IV X1 Sodium Chloride 0.9% 1000 ml [Ns] 1,000 ml Med 09/01/24 15:21 Active IV 150 mls/hr Sodium Chloride 0.9% 1000 ml [Ns] 1,000 ml Med 09/01/24 15:21 Discontinued IV 999 mls/hr Vital Signs Vital signs: Vital Signs Temperature 99.1 F 09/01/24 13:04 Pulse Rate 129 H 09/01/24 13:04 Respiratory Rate 18 09/01/24 13:04 Blood Pressure 129/79 09/01/24 13:04 Pulse Oximetry (%) 99 09/01/24 13:04 Oxygen Delivery Method Room Air 09/01/24 13:04 Pulse ox is 99% on room air which is adequate. Abdominal Pain MDM MDM Narrative MDM Narrative:: Patient had total abdominal hysterectomy and had some complications with some adhesions and perforated bowel with the surgery done 8 days ago. See the op report. Patient comes back with increasing pain and a CT today reveals a a postoperative abscess 10 x 8 cm. CBC with a white count of 7.5 hemoglobin 11.7 comprehensive metabolic panel shows normal electrolytes normal renal function transaminases are minimally elevated 39 and 96 total bilirubin is normal at0.4. Urinalysis has 16 red cells and [address] report reveals a large pelvic abscess [address] Storey the general surgeon who was asked to come in and assist in the case states the patient needs IR. We contact radiology services here at our facility seeing if IR is still available at 1517 hrs. And waiting for callback. Radiologist Dr. Dunlap, called back and states they have no techs to assist with IR at this time. Since it is Wednesday and we a long weekend we will going to have to transfer this patient for IR services. Talk to our transfer nurse and we are arranging for transfer to a facility has active IR services at this hour which is Wednesday afternoon and/or evening. Care of this patient will go to the doctor on coming 1800 hrs. unless we connect with somebody before that time. Transfer nurse got a hold of [facility] spoke with the transfer nurse Rita and they stated they do not have IR services on-call and they will call their general surgeons and see if they will accept and get their IR services to drain this. I recontacted our transfer nurse and will be working on other possible options of transfer. Care to oncoming doctor at 1800 hrs. Patient data External records reviewed:: [facility] previous records (I reviewed operative report on 08/24/2024) Clinical information provided by:: patient Social determinants that could affect healthcare access:: none Patient has the following chronic illnesses:: s/p cholecystectomy, s/p hysterectomy 08/24/[address] Storey How is presenting disease/condition affected by chronic disease/condition?: exacerbated by Evaluation data The following diagnostics were reviewed and interpreted by me:: lab results and radiology exam(s) Lab and/or radiology exams considered but not ordered:: None Interpretation Summary: Ordering Physician: Brody Carcamo Date of Service: 09/01/24 Procedure(s): CT abdomen pelvis wo con Accession Number(s): [id number] cc: Brody Carcamo; Matthew Doll MD~ Examination: CT abdomen and pelvis without contrast. Coronal 3-D reconstructions. Sagittal 2-D reconstructions. Date and time of exam:September 01, 2024 1346 hrs. Comparison February 02, 2024 Indications: Status post hysterectomy one week ago followed by a lower abdominal pain CTDI: vol (mGy): 10.6 DLP: (mGycm): 626 Technique: Axial images of the abdomen have been obtained, 3 mm slice thickness Intravenous contrast material has not been administered. Low dose protocols were performed. One or more of the following dose reduction techniques were used; automated exposure control, adjustment of the mA and/or KV according to patient size, use of iterative reconstruction technique. Findings: Diffuse fatty infiltration throughout the liver Absent gallbladder Spleen not enlarged No pancreatic or adrenal mass No renal or ureteral calculi, no hydronephrosis Aorta normal size Appendix is not diagnostically visualized Colonic diverticulosis, acute sigmoid diverticulitis with large pelvic abscess AP dimension 10 cm mediolateral dimension 7.9 cm Urinary bladder contracted Subcentimeter multiple periaortic pericaval lymph nodes, the largest 9 mm Bilateral common iliac lymph nodes, the largest 11 mm Impression: Acute sigmoid diverticulitis Large pelvic peridiverticular abscess, at least 10 x 7.9 cm Abdominal and pelvic lymphadenopathy, clinical correlation advised Dictated By: Matthew Doll MD Signed By: <Electronically signed by Matthew Doll MD in OV> 09/01/24 1438 Medications / Prescriptions Medications or Prescriptions considered but not ordered:: None Medication administrations:: Medication Administration History Sodium Chloride (Ns) 1,000 mls @ 150 mls/hr IV .Q6H40M ONE Stop: 09/01/24 22:00 Discontinued Medications Sodium Chloride (Ns) 1,000 mls @ 999 mls/hr IV .Q1H1M ONE Stop: 09/01/24 16:21 Last Admin: 09/01/24 16:00 Dose: 999 mls/hr Documented By: DO Piperacillin Sod/Tazobactam (Sod 3.375 gm/ Sodium Chloride) 50 mls @ 100 mls/hr IV X1 ONE Stop: 09/01/24 15:50 Last Infusion: 09/01/24 17:00 Dose: Infused Documented By: Admin: 09/01/24 16:05 Dose: 100 mls/hr Documented By: DO Morphine Sulfate (Morphine Sulf Inj 10 Mg/Ml Vial) 4 mg IVP X1 ONE Stop: 09/01/24 15:22 Last Admin: 09/01/24 16:02 Dose: 4 mg Documented By: DO Ondansetron HCl (Ondansetron Inj 2 Mg/Ml Inj 2 Ml) 4 mg IV X1 ONE; Protocol Stop: 09/01/24 15:22 Last Admin: 09/01/24 16:02 Dose: 4 mg Documented By: DO See above Consultations Consultation(s) initiated? (list below): Yes Consultation #1 (Physician, Specialty, Details): I spoke with surgeon Dr. Storey. Discussed patients HPI, ED course, exam findings, labs, and radiology results. States he would need IR to drain the abscess and if not available will require transfer. Time: 15:08 Consultation #2 (Physician, Specialty, Details): I spoke with radiologist Dr. Doll, states he is not in-house. Advised we call Dr. Dunlap. Time: 15:13 Consultation #3 (Physician, Specialty, Details): 1520: I spoke with radiologist Dr. Dunlap. Discussed patients HPI, ED course, exam findings, radiology results, and surgeon Dr. Storey recommendation. States all tech's are gone for the day and procedure is unable to be performed today. 1545: Transfer nurse Aaron aware of plan to txfer for post operative complications. Diagnosis Differential diagnosis abdominal pain: abdominal pain, acute appendicitis, constipation, diverticulitis, endometriosis, pancreatitis and small bowel obstruction Most likely diagnosis given after review of the tests above:: Postop intra-abdominal abscess that needs IR drainage postop total abdominal hysterectomy with adhesions with perforations that were repaired at the time but evidently we have complications. Admission Indicated Admission indicated?: not indicated Admission Request Was there a request for admission?: No Disposition Plan Disposition Plan: Transfer Discharge Plan Plan Patient Disposition: [facility] Acute Care Fac Service Needed for Transfer: Interventional radiology General Surgery Prescriptions/Referrals Prescriptions/Med Rec: No Action omeprazole 40 mg capsule,delayed release(DR/EC) 40 mg PO DAILY Patient Comments: take 1 capsule by mouth once daily BEFORE A MEAL fluoxetine 20 mg capsule 20 mg PO DAILY Patient Comments: take 1 capsule by mouth every morning acetaminophen [Acetaminophen Extra Strength] 500 mg tablet 1,000 mg PO Q6H PRN (Reason: pain) cholecalciferol (vitamin D3) [Vitamin D3] 50 mcg (2,000 unit) tablet 10,000 unit PO QWEEK atorvastatin 40 mg tablet 10 mg PO HS Patient Comments: take 1 tablet by mouth once daily Nurtec ODT 75 mg tablet,disintegrating Patient Comments: PLACE 1 TABLET BY TRANSLINGUAL ROUTE ON TOP OF THE TONGUE AND ALL... (REFER TO PRESCRIPTION NOTES). Problem List Clinical Impression: Abdominal pain, Postoperative intra-abdominal abscess, Status post abdominal hysterectomy, S/P total abdominal hysterectomy and bilateral salpingo- oophorectomy Patient/Caregiver Discharge Instructions Print Language: Romansh Stand Alone Forms: Katherin Award Info., Patient Portal Info Letter
--- NOTE | 2024-09-01 15:50 | PC.CC ---
Addendum entered by Tl Casey RN 09/01/24 19:48: [address] Jean and charge nurse. Per Dr. Jean orders ER to continue with transfer request. Addendum entered by Tl Casey RN 09/01/24 19:47: 1926 received call from Amber at [facility] that surgical team was consulted and they said there is no indication for urgent transfer. [facility] would have the IR services available at the same time as [facility] would have IR available which is Wednesday. Addendum entered by Tl Casey RN 09/01/24 19:00: 1859 received call form warehouse shipping clerk Estela at [facility] that transfer request is declined due to capacity. Addendum entered by Tl Casey RN 09/01/24 18:03: 1801 called [facility], to initiate the transfer, left VM. 1800 Clinicals faxed to [facility]. Addendum entered by Tl Casey RN 09/01/24 17:08: 1708 Images pushed to [facility] through [employer]. 1705 Rita from [facility] called and wants me to push images. Addendum entered by Tl Casey RN 09/01/24 16:49: 1639 called [facility], spoke to Rita and initiated the transfer. She wants to speak with Dr. Sutherland. Conference call connected. Addendum entered by Tl Casey RN 09/01/24 16:10: 1610 clinicals sent to [facility]. Addendum entered by Tl Casey RN 09/01/24 15:57: 1555 I am not trying [facility] because per [facility] in the past, IR is not an controller coal or ore service for them. Original Note: [address] Forbes that pt needs to be transferred for Postop intra-abdominal abscess need IR services. Patient had hysterectomy with perforation 8 days ago.
[2024-09-01] MEDS: SODIUM CHLORIDE 0.9% 1000 ML 1,000 ML 999 ML IV (16:00)
[2024-09-01] MEDS: MORPHINE SULF INJ 10 MG/ML VIAL 4 MG IVP ×3 (16:02→21:06)
[2024-09-01] MEDS: ONDANSETRON INJ 2 MG/ML INJ 2 ML 4 MG IV (16:02)
[2024-09-01] MEDS: PIPER/TAZO INJ 3.375 GM in SODIUM CHLORIDE 0.9% (Popper) 50 ML IV (16:05)
[2024-09-01] MEDS: SODIUM CHLORIDE 0.9% 1000 ML 1,000 ML 150 ML IV (18:35)
--- NOTE | 2024-09-01 18:35 | PC.NURSE ---
PT AMBULATED TO RESTROOM AT THIS TIME
--- NOTE | 2024-09-01 18:48 | EDNOTE_ITS ---
Emergency Room Addendum <Yisel Jean MD - Last Filed: 09/01/24 23:06> Addendum Narrative: 1800 Care assumed from Randell Diaz MD. Past medical, surgical, social and family history reviewed. Vitals and home medications reviewed. Results and treatment plan discussed. I will assume the care of the patient at this time and will follow the patient, pending transfer. Please refer to the emergency department record for history and examination from initial visit which states including the following below: Patient had total abdominal hysterectomy 08/24/24 and had some complications with some adhesions and perforated bowel with the surgery done 8 days ago. Sig elyssa out to me for 8 x 10 postop abscess. (CBC with a white count of 7.5 hemoglobin 11.7 comprehensive metabolic panel shows normal electrolytes normal renal function transaminases are minimally elevated 39 and 96 total bilirubin is normal at0.4. Urinalysis has 16 red cells and 3 white cells <Wesley Phan - Last Filed: 09/01/24 21:51> Addendum Narrative: 1800 Care assumed from Randell Diaz MD. Past medical, surgical, social and family history reviewed. Vitals and home medications reviewed. Results and treatment plan discussed. I will assume the care of the patient at this time and will follow the patient, pending transfer. Please refer to the emergency department record for history and examination from initial visit which states including the following below: Patient had total abdominal hysterectomy 08/24/24 and had some complications with some adhesions and perforated bowel with the surgery done 8 days ago. Signed out to me for 8 x 10 postop abscess. (CBC with a white count of 7.5 hemoglobin 11.7 comprehensive metabolic panel shows normal electrolytes normal renal function transaminases are minimally elevated 39 and 96 total bilirubin is normal at0.4. Urinalysis has 16 red cells and 3 white cells Re-Evaluation Note: The patient remains clinically stable. Her vital signs are within normal limits, with a blood pressure of 121/65 mmHg, heart rate of 95 bpm, and afebrile status. She reports that her pain is well-controlled, and there are no new concerns at this time. 2054 Case d/w [facility] made aware of the patient?s HPI, PMHx, lab and/or radiology results. Treatment plan was discussed. Waiting callback to determine if accept. <Adriana Pickard - Last Filed: 09/01/24 22:52> Addendum Narrative: 1800 Care assumed from Randell Diaz MD. Past medical, surgical, social and family history reviewed. Vitals and home medications reviewed. Results and treatment plan discussed. I will assume the care of the patient at this time and will follow the patient, pending transfer. Please refer to the emergency department record for history and examination from initial visit which states including the following below: Patient had total abdominal hysterectomy 08/24/24 and had some complications with some adhesions and perforated bowel with the surgery done 8 days ago. Signed out to me for 8 x 10 postop abscess. (CBC with a white count of 7.5 hemoglobin 11.7 comprehensive metabolic panel shows normal electrolytes normal renal function transaminases are minimally elevated 39 and 96 total bilirubin is normal at0.4. Urinalysis has 16 red cells and 3 white cells Re-Evaluation Note: The patient remains clinically stable. Her vital signs are within normal limits, with a blood pressure of 121/65 mmHg, heart rate of 95 bpm, and afebrile status. She reports that her pain is well-controlled, and there are no new concerns at this time. 2054 Case d/w [facility] made aware of the patient?s HPI, PMHx, lab and/or radiology results. Treatment plan was discussed. Waiting callback to determine if accept. 2251 Dr. Hackett, [employer], from [facility] accepts the patient for transfer. Attestation <Wesley Phan - Last Filed: 09/01/24 21:51> Attestation Scribe Attestation: I, Neil Phan, am scribing for and in the presence of Dr. Jean. Provider Notation: Although this document has been carefully reviewed, there may still be some phonetic and other typographical errors. These errors are purely grammatical due to imperfections in the software program and should not be construed in any way to compromise the substance of the patient's medical care during this visit.
--- NOTE | 2024-09-01 20:27 | PC.NURSE ---
[facility] WERE FAXED PAPERWORK FOR POSSIBLE TRANSFER, NEED IR
--- NOTE | 2024-09-01 21:40 | PC.NURSE ---
CRICKET FROM [facility] CALLED AND STATES THAT BY WEDNESDAY IF WE STILL NEED IR TO CONTACT THEM THEN BUT FOR NOW THEY ARE GOING TO CLOSE OUT THE CASE
--- NOTE | 2024-09-01 22:51 | PC.NURSE ---
PT ACCEPTED [facility] ER TO ER DR DENNIS #[phone]
== END 2024-09-01 23:45 | disposition short-term general hospital (02) ==
PROVIDERS: Nurse Practitioner Family; Emergency Provider Emergency Medicine; PCP Nurse Practitioner Primary Care
DX: T81.43XA Infection following a procedure, organ and space surgical site, initial encounter (principal); K65.1 Peritoneal abscess; K57.20 Diverticulitis of large intestine with perforation and abscess without bleeding; E78.00 Pure hypercholesterolemia, unspecified; Z90.722 Acquired absence of ovaries, bilateral; Z90.79 Acquired absence of other genital organ(s); Z90.710 Acquired absence of both cervix and uterus; Y83.6 Removal of other organ (partial) (total) as the cause of abnormal reaction of the patient, or of later complication, without mention of misadventure at the time of the procedure
CPT/HCPCS: 36415; 74176; 80053; 81001; 83605; 84145; 85025; 87040; 87086; 96361; 96365; 96375; 96376; 99285; J2270; J2405; J2543; J7030; J7050

== ENCOUNTER 2024-10-02 13:12 | Inpatient (IN) | payer MEDICAID, SELFPAY ==
[2024-10-02 13:14] VITALS: BMI 34.9
[2024-10-02 13:27] VITALS: BP 129/84; PULSE 100; RESP 20; TEMP 36.8; O2SAT 97
--- NOTE | 2024-10-02 13:46 | XR_ITS ---
Examination: CT abdomen with intravenous contrast CT pelvis with intravenous contrast 2-D coronal reconstructions 2-D sagittal reconstructions Date and time of exam:October 02, 2024, 1707 hours INDICATIONS: Pelvic pain and discharge post hysterectomy beginning 2 days ago Acute diverticulitis on CT study August 24, 2024. CTDI: vol (mGy) 12.6 DLP: (mGycm) 748 Technique: Multiple axial sections of the abdomen and pelvis have been obtained. 64 slice high-resolution scanner used. 3 mm axial sections have been obtained, post intravenous injection of 60 cc Isovue 370 2-D sagittal, coronal reconstructions obtained. Low dose protocols were performed. One or more of the following dose reduction techniques were used; automated exposure control, adjustment of the mA and/or KV according to patient size, use of iterative reconstruction technique. Findings: Diffuse fatty infiltration throughout the liver, no focal liver or splenic lesions Absent gallbladder No pancreatic or adrenal mass No renal or ureteral calculi, no hydronephrosis 10 mm fat-containing umbilical hernia No pericecal inflammatory change Colonic diverticulosis Acute diverticulitis sigmoid colon with very small early peridiverticular abscess, 10 by 4 mm Mild thickening of the urinary bladder wall Intact osseous structures IMPRESSION: Acute sigmoid diverticulitis with very small early peridiverticular abscess
--- NOTE | 2024-10-02 13:47 | PD.EDRME ---
Rapid Medical Screening Exam RME Arrival date/time: 10/02/24 13:12 49-year-old female with recent hysterectomy with complication requiring transfer to [place] for an abscess with admission for 10 days and IV antibiotics presents for concerns for pelvic pain and discharge Chief Complaint: General Adult/Misc Complain Time Seen by Provider: 10/02/24 13:40 Vital signs: Vital Signs Temperature 98.2 F 10/02/24 13:27 Pulse Rate 100 10/02/24 13:27 Respiratory Rate 20 10/02/24 13:27 Blood Pressure 129/84 10/02/24 13:27 Pulse Oximetry (%) 97 10/02/24 13:27 Oxygen Delivery Method Room Air 10/02/24 13:27
[2024-10-02 14:07] LABS: Lactate (Lactic Acid) 1.1 mMol/L (0.4-2.0)
[2024-10-02 14:10] LABS: Basophils # (Auto) 0.1 Thou/mm3 (0.0-0.2); Basophils % (Auto) 1 % (0-2.5); Eosinophils # (Auto) 0.2 Thou/mm3 (0.0-0.5); Eosinophils % (Auto) 3 % (0-10); Hematocrit 36.6 % (36.0-46.0); Immature Granulocytes % (Auto) 0 % (0-0); Immature Granulocytes Auto 0.03 Thou/mm3 (0.00-0.00); Lymphocytes # (Auto) 2.5 Thou/mm3 (1.0-4.8); Lymphocytes % (Auto) 32 % (10-50); Mean Corpuscular HGB Conc 32.8 g/dl (31.0-37.0); Mean Corpuscular Hemoglobin 28.2 pg (25.0-35.0); Mean Corpuscular Volume 86 fL (80-100); Monocytes # (Auto) 0.7 Thou/mm3 (0.0-0.8); Monocytes % (Auto) 9 % (0-12); Neutrophils # (Auto) 4.2 Thou/mm3 (1.8-7.7); Neutrophils % (Auto) 55 % (37-80); Nucleated Red Blood Cell % 0 /100 WBC (0); Platelet Count 349 Thou/mm3 (140-440); RDW Standard Deviation 42.7 fL (36.4-46.3); Red Blood Count 4.26 Miln/mm3 (4.00-5.20); White Blood Count 7.7 Thou/mm3 (3.6-11.0)
[2024-10-02 14:29] LABS: Collection Type, Urine Clean Catch
[2024-10-02 14:49] LABS: Alanine Aminotransferase 43 U/L (10-49); Albumin, Serum 4.6 gm/dL (3.5-5.0); Albumin/Globulin Ratio 1.4 (1.2-2.2); Alkaline Phosphatase 98 U/L (46-116); Anion Gap 10 (7-16); Aspartate Amino Transferase 31 U/L (0-34); BUN/Creatinine Ratio 14 Ratio (12-20); Bilirubin,Total 0.4 mg/dL (0.3-1.2); Blood Urea Nitrogen 10 mg/dL (9-23); Calcium 10.4 mg/dL (8.3-10.6); Calcium (Corrected) 10.4 mg/dL (8.5-10.1); Chloride 105 mMol/L (98-107); Creatinine (Component) 0.7 mg/dL (0.6-1.3); Estimated Creatinine Clearance 96.6 mL/min (>60); Globulin 3.2 gm/dL (2.3-3.5); Glucose 93 mg/dL (74-106); Lipase 43 U/L (12-53); Osmolality,Calculated 278 (275-295); Potassium 4.2 mMol/L (3.4-5.1); Procalcitonin 0.05 ng/ml (0.0-0.49); Sodium 140 mMol/L (136-145); Total Protein 7.8 gm/dL (5.7-8.2); eGFR > 60 See Note
[2024-10-02 14:52] LABS: Bilirubin,Urine Negative (Negative); Blood,Urine Trace (Negative); Clarity,Urine Clear (Clear/Hazy); Color,Urine Colorless (Lt Yel-Yel); Culture Indicated,Urine Not Indicated; Glucose, Urine Negative (Negative); Ketones,Urine Negative (Negative); Leukocyte Esterase,Urine Positive (Negative); Nitrite,Urine Negative (Negative); PH,Urine 7.5 (5.0-7.0); Protein,Urine Negative (Neg - Trace); RBC,Urine 3 /hpf (0-3); Specific Gravity,Urine 1.008 (1.001-1.035); Squamous Epithelial Cell,Urine < 1 /hpf (0-5); Urobilinogen,Urine Negative mg/dL (0.0-1.0); WBC,Urine 9 /hpf (0-5)
[2024-10-02 15:56] VITALS: BP 135/90; PULSE 86; RESP 17; TEMP 36.8; O2SAT 99
--- NOTE | 2024-10-02 16:06 | EDNOTE_ITS ---
ED General RME/HPI General Chief complaint: General Adult/Misc Complain Stated complaint: PELVIC PAIN AND DISCHARGE X2D S/P TOTAL HYSTER Time Seen by Provider: 10/02/24 13:40 Arrival date/time: 10/02/24 13:12 RME / HPI RME / HPI narrative: 10/02/24 13:12 49-year-old female with recent hysterectomy with complication requiring transfer to [place] for an abscess with admission for 10 days and IV antibiotics presents for concerns for pelvic pain and discharge DR. NO MAIN ED EVALUATION: 49 year old female with past medical history significant for total abdominal hysterectomy but then required transfer to [place] for a pelvis abscess and they put a drain there at [place] and discharged with antibiotics which she finished. Patient now presents to the Emergency Department accompanied by her with complaint of vaginal discharge since Wednesday, 3 days ago. Patient states on Saturdays, 4 days ago, she started with chills and then the next day she noticed clear vaginal discharge with associated itching and burning. Then yesterday, she noticed yellow puss vaginal discharge. She mentions that besides her vaginal area pain, she also had pain in her pelvic area and lower back area. Other associated symptoms include nausea and constipation. No fevers. No vomiting. Related Data Home Medications ?Medication ?Instructions ?Recorded ?Confirmed acetaminophen 500 mg tablet 1,000 mg PO Q6H PRN pain 0 08/23/24 10/04/24 (Acetaminophen Extra Strength) atorvastatin 40 mg tablet 10 mg PO HS 08/23/24 5 cholecalciferol (vitamin D3) 50 10,000 unit PO QWEEK 0 08/23/24 10/04/24 mcg (2,000 unit) tablet (Vitamin D3) fluoxetine 20 mg capsule 20 mg PO DAILY 08/23/24 0408/29 omeprazole 40 mg capsule,delayed 40 mg PO DAILY 10/04/24 release rimegepant 75 mg disintegrating mg 08/26/24 tablet (Nurtec ODT) sumatriptan succinate 50 mg tablet 50 mg PO DAILY PRN migraine 10/04/24 10/04/24 (Imitrex) headache Previous Rx's ?Medication ?Instructions ?Recorded clotrimazole 1 % vaginal cream 1 applic .Route BID 1 w algaaciq #45 04/03/25 grams doxycycline hyclate 100 mg tablet 100 mg PO BID 12 day s #24 tabs 10/05/24 metronidazole 500 mg tablet 500 mg PO BID 12 days #24 tabs 10/05/24 Allergies Allergy/AdvReac Type Severity Reaction Status Date / Time No Known Allergies Allergy Verified 10/02/24 13:17 Review of Systems Review of Systems Systems Reviewed: All systems reviewed, normal except as documented Past Medical History Past Medical History NEUROLOGIC: Positive Neurological Disorders and Migraine CARDIAC: Positive Cardiac Disorders and Hypercholesterolemia GASTROINTESTINAL: Positive Gastrointestinal Disorders, Diverticulitis, Gastroesophageal Reflux Disease and Obesity REPRODUCTIVE: Positive Previous Pregnancies MUSCULOSKELETAL: Positive Musculoskeletal Disorders PSYCHO/SOCIAL: Positive Anxiety OTHER HISTORY: Positive Hospitalization Family History FAMILY HISTORY: Positive Family Cardiac Disorders and Family Surgery Surgical History SURGICAL: Positive Abdominal Surgery, Hysterectomy and Section Social History SMOKING STATUS: Never smoker SECOND HAND EXPOSURE: No SUBSTANCE USE: does not use ALCOHOL: Never ED Exam Narrative Physical exam: GENERAL APPEARANCE: alert and oriented x 4, well-developed, well-nourished, no acute distress VITALS: All vitals were reviewed and the pulse ox is 97% on room air, which is normal according to my interpretation. HEENT: Normocephalic, atraumatic; pupils equal, round, reactive to light; EOMI; mucous membranes pink, moist; oropharynx clear NECK: Supple LUNGS: CTABL; no wheezes, no rales, no rhonchi HEART: Regular rate, regular rhythm; normal S1, S2; no murmurs ABDOMEN: non distended; normal BS; soft, no tenderness, no guarding, no rebound; no masses, no organomegaly, no hernia BACK: no CVA tenderness EXTREMITIES: atraumatic; no edema NEUROLOGIC: awake; alert and oriented x4; cranial nerves II-XII grossly intact; no focal sensory or motor deficits PSYCHIATRIC: appropriate mood and affect SKIN: warm, dry, normal color; no rashes Course Quality Measures none Orders Category Date Time Status CT Screening NOW Care 10/02/24 13:46 Completed Continuous Pulse Oximetry NOW Care 10/02/24 23:[address] abdomen pelvis w con Stat Exams 10/02/24 13:46 Completed Bacterial Vaginal Panel Stat Lab 10/02/24 21:10 Completed Blood Culture (Lab) Stat Lab 10/02/24 13:58 Completed CBC Stat Lab 10/02/24 13:58 Completed Comprehensive Metabolic Panel Stat Lab 10/02/24 13:58 Completed Lactic Acid [Lactate (Lactic Acid)] Stat Lab 10/02/24 13:58 Completed Lipase Stat Lab 10/02/24 13:58 Completed Procalcitonin Stat Lab 10/02/24 13:58 Completed UA, C/S IF [Urinalysis, C/S if Indicated] Stat Lab 10/02/24 14:08 Completed Doxycycline Inj [Vibramycin Inj] 100 mg Med 10/02/24 19:36 Discontinued Sodium Chloride 0.9% (Pop) [NS 0.9% mini bag] 100 ml IV X1 Doxycycline Inj [Vibramycin Inj] 100 mg Med 10/03/24 00:04 Discontinued Sodium Chloride 0.9% (Pop) [NS 0.9% mini bag] 100 ml IV X1 HYDROmorphone INJ [Dilaudid Inj] Med 10/03/24 00:15 Discontinued 0.5 mg IVP PRN Ondansetron Inj [Zofran Inj] Med 10/03/24 00:01 Discontinued 4 mg IV X1 ONE Phenazopyridine HCl [Pyridium] Med 10/02/24 19:41 Discontinued 100 mg PO X1 ONE Piper/Tazo Inj [Zosyn Inj] 4.5 gm Med 10/02/24 19:37 Discontinued Sodium Chloride 0.9% (Pop) [NS 0.9% mini bag] 100 ml IV X1 Piper/Tazo Inj [Zosyn Inj] 4.5 gm Med 10/02/24 19:45 Discontinued Sodium Chloride 0.9% (Pop) [NS 0.9% mini bag] 100 ml IV X1 cefTRIAXone [Rocephin] Med 10/03/24 00:04 Discontinued 500 mg IM X1 ONE Vital Signs Vital signs: Vital Signs Temperature 98.2 F 10/02/24 13:27 Pulse Rate 100 10/02/24 13:27 Respiratory Rate 20 10/02/24 13:27 Blood Pressure 129/84 10/02/24 13:27 Pulse Oximetry (%) 97 10/02/24 13:27 Oxygen Delivery Method Room Air 10/02/24 13:27 [facility] Patient data External records reviewed:: [facility] previous records (Reviewed last ED visit dated 09/01/24, discharged with the following: Abdominal pain) Clinical information provided by:: patient and spouse Social determinants that could affect healthcare access:: none Patient has the following chronic illnesses:: Total abdominal hysterectomy but then required transfer to [place] for a pelvis abscess and they put a drain there at [place] and discharged with antibiotics which she finished. How is presenting disease/condition affected by chronic disease/condition?: e xacerbated by Evaluation data The following diagnostics were reviewed and interpreted by me:: lab results and radiology exam(s) Lab and/or radiology exams considered but not ordered:: none Interpretation Summary: Pending diagnostic tests. Patient signout to the hotel night auditor provider. Medications Medications considered but not ordered:: none Medication administrations:: Medication Administration History Discontinued Medications Acetaminophen (Acetaminophen 325 Mg Tablet) 650 mg PO Q6H PRN; Protocol PRN Reason: Fever >100.3 or pain Stop: 11/02/24 01:02 Last Admin: 10/05/24 05:50 Dose: 650 mg Documented By: SIRI Hydrocodone Bitart/Acetaminophen (Hydrocodone/Apap 5/325 Tablet) 1 tab PO Q6HR PRN; Protocol PRN Reason: Pain 4-10 Stop: 10/08/24 20:42 Last Admin: 10/04/24 19:30 Dose: 1 tab Documented By: SIRI Atorvastatin Calcium (Atorvastatin Calcium 20 Mg Tablet) 20 mg PO HS DANIEL Stop: 11/02/24 20:59 Last Admin: 10/04/24 21:18 Dose: 20 mg Documented By: Admin: 10/03/24 21:20 Dose: 20 mg Documented By: ENDER Ceftriaxone Sodium (Ceftriaxone Sodium 500 Mg Vial) 500 mg IM X1 ONE Stop: 10/03/24 00:05 Last Admin: 10/03/24 00:25 Dose: 500 mg Documented By: GALILEA Clotrimazole (Clotrimazole Vag Cr 1% 45 Gm Tube) 0 gm VAGINAL HS DANIEL Stop: 11/03/24 20:59 Last Admin: 10/04/24 21:21 Dose: 1 applicatio Documented By: SIRI Enoxaparin Sodium (Enoxaparin Sod Inj 40 Mg/0.4 Ml Syringe) 40 mg SC QDAY DANIEL Stop: 10/17/24 08:59 Fluoxetine HCl (Fluoxetine Hcl 10 Mg Capsule) 20 mg PO DAILY DANIEL Stop: 11/03/24 10:44 Last Admin: 10/05/24 09:17 Dose: 20 mg Documented By: Admin: 10/04/24 11:49 Dose: 20 mg Documented By: MR Hydromorphone HCl (Hydromorphone Inj 2 Mg/Ml Vial) 0.5 mg IVP PRN DANIEL Stop: 10/08/24 00:14 Last Admin: 10/03/24 00:24 Dose: 0.5 mg Documented By: GALILEA Piperacillin Sod/Tazobactam (Sod 4.5 gm/ Sodium Chloride) 100 mls @ 200 mls/hr IV X1 ONE Stop: 10/02/24 20:06 Last Admin: 10/02/24 19:50 Dose: Not Given Documented By: EE Non-Admin Reason: Cancelled by Provider Doxycycline Hyclate 100 mg/ (Sodium Chloride) 100 mls @ 100 mls/hr IV X1 ONE Stop: 10/02/24 20:35 Last Admin: 10/02/24 19:49 Dose: Not Given Documented By: EE Non-Admin Reason: Cancelled by Provider Piperacillin Sod/Tazobactam (Sod 4.5 gm/ Sodium Chloride) 100 mls @ 200 mls/hr IV X1 ONE Stop: 10/02/24 20:14 Last Infusion: 10/02/24 20:26 Dose: Infused Documented By: Admin: 10/02/24 19:56 Dose: 200 mls/hr Documented By: GALILEA Doxycycline Hyclate 100 mg/ (Sodium Chloride) 100 mls @ 100 mls/hr IV X1 ONE Stop: 10/03/24 01:03 Last Admin: 10/03/24 00:24 Dose: 100 mls/hr Documented By: GALILEA Ceftriaxone Sodium/Dextrose (Rocephin/D5w 1gm Iv Premix) 1,000 mg in 50 mls @ 100 mls/hr IV QDAY [facility] Stop: 10/10/24 01:23 Last Admin: 10/05/24 07:28 Dose: Not Given Documented By: TD Non-Admin Reason: cleaning up [facility] Admin: 10/03/24 05:12 Dose: Not Given Documented By: ENDER Non-Admin Reason: duplicate Doxycycline Hyclate 100 mg/ (Sodium Chloride) 100 mls @ 100 mls/hr IV BID [facility] Stop: 10/10/24 08:59 Last Admin: 10/05/24 10:16 Dose: 100 mls/hr Documented By: Infusion: 10/04/24 22:18 Dose: Infused Documented By: Admin: 10/04/24 21:18 Dose: 100 mls/hr Documented By: Infusion: 10/04/24 09:05 Dose: Infused Documented By: Admin: 10/04/24 08:05 Dose: 100 mls/hr Documented By: Infusion: 10/03/24 22:20 Dose: Infused Documented By: Admin: 10/03/24 21:20 Dose: 100 mls/hr Documented By: Infusion: 10/03/24 11:05 Dose: Infused Documented By: Admin: 10/03/24 10:05 Dose: 100 mls/hr Documented By: Metronidazole (Flagyl 500 Mg Iv) 500 mg in 100 mls @ 200 mls/hr IV BID DANIEL Stop: 10/10/24 01:29 Last Admin: 10/05/24 09:09 Dose: 200 mls/hr Documented By: Infusion: 10/04/24 22:49 Dose: Infused Documented By: Admin: 10/04/24 22:19 Dose: 200 mls/hr Documented By: Infusion: 10/04/24 09:38 Dose: Infused Documented By: Admin: 10/04/24 09:08 Dose: 200 mls/hr Documented By: Infusion: 10/03/24 21:50 Dose: Infused Documented By: Admin: 10/03/24 21:20 Dose: 200 mls/hr Documented By: Infusion: 10/03/24 10:46 Dose: Infused Documented By: Admin: 10/03/24 10:16 Dose: 200 mls/hr Documented By: Infusion: 10/03/24 04:54 Dose: Infused Documented By: Admin: 10/03/24 04:24 Dose: 200 mls/hr Documented By: ENDER Ceftriaxone Sodium/Dextrose (Rocephin/D5w 1gm Iv Premix) 1,000 mg in 50 mls @ 100 mls/hr IV QDAY DANIEL Stop: 10/10/24 09:44 Last Admin: 10/04/24 09:51 Dose: 100 mls/hr Documented By: Infusion: 10/03/24 10:22 Dose: Infused Documented By: Admin: 10/03/24 09:52 Dose: 100 mls/hr Documented By: Sodium Chloride (Ns) 1,000 mls @ 75 mls/hr IV .[id number] DANIEL Stop: 11/02/24 12:20 Last Admin: 10/05/24 07:38 Dose: Not Given Documented By: KIN Non-Admin Reason: Discontinued Admin: 10/05/24 07:29 Dose: Not Given Documented By: KIN Non-Admin Reason: Discontinued Admin: 10/03/24 21:22 Dose: 75 mls/hr Documented By: ENDER Ceftriaxone Sodium/Dextrose (Rocephin/D5w 1gm Iv Premix) 1 gm in 50 mls @ 100 mls/hr IV QDAY [facility] Stop: 10/10/24 09:44 Last Admin: 10/05/24 09:09 Dose: 100 mls/hr Documented By: KIN Morphine Sulfate (Morphine Sulf Inj 10 Mg/Ml Vial) 2 mg IVP Q6HR PRN; Protocol PRN Reason: PAIN SCALE 7-10 (Severe Stop: 10/08/24 01:39 Last Admin: 10/03/24 12:06 Dose: 2 mg Documented By: Ondansetron HCl (Ondansetron Inj 2 Mg/Ml Inj 2 Ml) 4 mg IV X1 ONE; Protocol Stop: 10/03/24 00:02 Last Admin: 10/03/24 00:25 Dose: 4 mg Documented By: GALILEA Ondansetron HCl (Ondansetron Inj 2 Mg/Ml Inj 2 Ml) 4 mg IV Q6H PRN; Protocol PRN Reason: NAUSEA OR VOMITING Stop: 11/02/24 01:02 Last Admin: 10/03/24 15:54 Dose: 4 mg Documented By: Ondansetron HCl (Ondansetron Inj 2 Mg/Ml Inj 2 Ml) 4 mg IV Q4H PRN; Protocol PRN Reason: NAUSEA OR VOMITING Stop: 11/02/24 01:02 Last Admin: 10/03/24 21:19 Dose: 4 mg Documented By: ENDER Pantoprazole Sodium (Pantoprazole 40 Mg Tablet) 40 mg PO QDAY [facility] Stop: 11/02/24 08:59 Last Admin: 10/05/24 09:18 Dose: 40 mg Documented By: Admin: 10/04/24 08:56 Dose: 40 mg Documented By: Admin: 10/03/24 10:19 Dose: Not Given Documented By: Non-Admin Reason: NPO Phenazopyridine HCl (Phenazopyridine Hcl 100 Mg Tablet) 100 mg PO X1 ONE Stop: 10/02/24 19:42 Last Admin: 10/02/24 19:56 Dose: 100 mg Documented By: GALILEA Sennosides (Senna Tablet) 1 tab PO QDAY PRN; Protocol PRN Reason: constipation Stop: 11/02/24 01:02 Sumatriptan Succinate (Sumatriptan 25 Mg Tablet) 25 mg PO X1 ONE Stop: 10/03/24 20:44 Last Admin: 10/03/24 21:52 Dose: 25 mg Documented By: ENDER Sumatriptan Succinate (Sumatriptan 25 Mg Tablet) Confirm Administered Dose 25 mg .ROUTE .STK-MED ONE Stop: 10/05/24 09:23 Last Admin: 10/05/24 09:11 Dose: Not Given Documented By: KIN Non-Admin Reason: per pharmacy, pyxis override Sumatriptan Succinate (Sumatriptan 25 Mg Tablet) 50 mg PO DAILY PRN; Protocol PRN Reason: migraine headache Stop: 11/03/24 10:42 see above if any Consultations Consultation(s) initiated? (list below): No Diagnosis Differential Diagnosis ED Complaint MDM: cellulitis, abscess, sepsis, UTI Most likely diagnosis given after review of the tests above:: No official diagnoses at this time, still pending diagnostic tests. Patient signout to the hotel night auditor provider. Admission Indicated Admission indicated?: not indicated Explain why admission is indicated or not indicated:: No final disposition plan at this time, still pending diagnostic tests. Patient signout to the hotel night auditor provider. Admission Request Was there a request for admission?: No Disposition Plan Disposition Plan: other (specify) (Patient signout to the hotel night auditor provider, pending abdomen/pelvis CT and final disposition.) Medical Decision Making MDM Narrative MDM Narrative: Kate Harper, am scribing for and in the presence of Dr. No. Differential Diagnosis Differential Diagnosis: cellulitis, abscess, sepsis, UTI Lab Data 10/05/24 05:27 10/05/24 05:27 Labs: Lab Results 10/02/24 10/02/24 Range/Units 13:58 14:08 WBC 7.7 (3.6-11.0) Thou/mm3 RBC 4.26 (4.00-5.20) Miln/mm3 Hgb 12.0 (12.0-16.0) g/dL Hct 36.6 (36.0-46.0) % MCV 86 (80-100) fL MCH 28.2 (25.0-35.0) pg MCHC 32.8 (31.0-37.0) g/dl RDW Std Deviation 42.7 (36.4-46.3) fL Plt Count 349 D (140-440) Thou/mm3 Neut % (Auto) 55 (37-80) % Lymph % (Auto) 32 (10-50) % [place] % (Auto) 9 (0-12) % Eos % (Auto) 3 (0-10) % Baso % (Auto) 1 (0-2.5) % Neut # (Auto) 4.2 (1.8-7.7) Thou/mm3 Lymph # (Auto) 2.5 (1.0-4.8) Thou/mm3 [place] # (Auto) 0.7 (0.0-0.8) Thou/mm3 Eos # (Auto) 0.2 (0.0-0.5) Thou/mm3 Baso # (Auto) 0.1 (0.0-0.2) Thou/mm3 Immature Gran # (Auto) 0.03 H (0.00-0.00) Thou/mm3 Absolute Nucleated RBC 0.00 (0.00-0.00) Thou/mm3 Immature Gran % 0 (0-0) % Nucleated RBC % 0 (0) /100 WBC Sodium 140 (136-145) mMol/L Potassium 4.2 (3.4-5.1) mMol/L Chloride 105 (98-107) mMol/L Carbon Dioxide 25.0 (20.0-31.0) mMol/L Anion Gap 10 (7-16) BUN 10 (9-23) mg/dL Creatinine 0.7 (0.6-1.3) mg/dL Estim Creat Clear Calc 96.6 (>60) mL/min eGFR > 60 (60 - ) See Note BUN/Creatinine Ratio 14 (12-20) Ratio Glucose 93 (74-106) mg/dL Calculated Osmolality 278 (275-295) Lactic Acid 1.1 (0.4-2.0) mMol/L Calcium 10.4 (8.3-10.6) mg/dL Corrected Calcium 10.4 H (8.5-10.1) mg/dL Total Bilirubin 0.4 (0.3-1.2) mg/dL AST 31 (0-34) U/L ALT 43 (10-49) U/L Alkaline Phosphatase 98 (46-116) U/L Total Protein 7.8 (5.7-8.2) gm/dL Albumin 4.6 (3.5-5.0) gm/dL Globulin 3.2 (2.3-3.5) gm/dL Albumin/Globulin Ratio 1.4 (1.2-2.2) Lipase 43 (12-53) U/L Procalcitonin 0.05 (0.0-0.49) ng/ml Ur Collection Type Clean Catch Urine Color Colorless A (Lt Yel-Yel) Urine Clarity Clear (Clear/Hazy) Urine pH 7.5 H (5.0-7.0) Ur Specific [place] 1.008 (1.001-1.035) Urine Protein Negative (Neg - Trace) Urine Glucose (UA) Negative (Negative) Urine Ketones Negative (Negative) Urine Blood Trace (Negative) Urine Nitrite Negative (Negative) Urine Bilirubin Negative (Negative) Urine Urobilinogen (Auto) Negative (0.0-1.0) mg/dL Ur Leukocyte Esterase Positive (Negative) Urine RBC 3 (0-3) /hpf Urine WBC 9 H (0-5) /hpf Ur Squamous Epith Cells < 1 (0-5) /hpf Urine Bacteria None (None) Ur Culture Indicated? Not Indicated Discharge Plan Plan Patient Disposition: Admit Acute Care w/in Hospital Patient condition on transfer: Stable Problem List Clinical Impression: Diverticulitis, UTI (urinary tract infection), Vaginal discharge
[2024-10-02 16:18] VITALS: BP 135/90; PULSE 99; RESP 18; TEMP 37.6; O2SAT 97
[2024-10-02 18:30] VITALS: BP 112/80; PULSE 75; RESP 12; TEMP 36.6; O2SAT 97
--- NOTE | 2024-10-02 18:31 | EDNOTE_ITS ---
Emergency Room Addendum <Wesley Phan - Last Filed: 10/02/24 21:51> Addendum Narrative: 1800 -- Care assumed from the dayshift provider. Past medical, surgical, social and family history reviewed. Vitals and home medications reviewed. Results and treatment plan discussed. I will assume the care of the patient at this time and will follow the patient, pending CT results and final disposition 1899 -- Patient evaluated by me. 49-year-old female with history of diverticulitis, a recent surgical history of total abdominal hysterectomy with bilateral salpingo-oophorectomy, lysis of adhesions, and bowel repair on 08/24/2024 presents to the ED accompanied by her with complaints of vaginal discharge and pelvic discomfort since 09/29/24. (Postoperatively, she experienced complications, including a pelvic abscess requiring transfer to [facility], where interventional radiology placed a pelvic drain). She states that on Wednesday evening (4 days ago), she experienced chills followed the next day by the onset of yellow vaginal discharge. By yesterday, the discharge had worsened. She also endorses pain in the vaginal area, pelvis, and lower back, which worsens with urination. Additional symptoms include nausea. She also reports increased bowel movements. She denies fever or vomiting. She reports history of cholecystectomy. She still has her appendix. Physical exam shows moderate to severe tenderness to palpation noted over the left lower quadrant and suprapubic region. 2024 -- Pelvic exam performed with a female laundry presser present. Mild, scant yellowish vaginal discharge noted. No mucosal erythema, or edema observed. Evaluation data The following diagnostics were reviewed and interpreted by me: radiology exam(s) Interpretation Summary: Examination: CT abdomen with intravenous contrast CT pelvis with intravenous contrast Date and time of exam:October 02, 2024, 1707 hours INDICATIONS: Pelvic pain and discharge post hysterectomy beginning 2 days ago Acute diverticulitis on CT study August 24, 2024. Findings: Diffuse fatty infiltration throughout the liver, no focal liver or splenic lesions Absent gallbladder No pancreatic or adrenal mass No renal or ureteral calculi, no hydronephrosis 10 mm fat-containing umbilical hernia No pericecal inflammatory change Colonic diverticulosis Acute diverticulitis sigmoid colon with very small early peridiverticular abscess, 10 by 4 mm Mild thickening of the urinary bladder wall Intact osseous structures IMPRESSION: Acute sigmoid diverticulitis with very small early peridiverticular abscess <Adriana Pickard - Last Filed: 10/03/24 01:06> Addendum Narrative: 1800 -- Care assumed from the dayshift provider. Past medical, surgical, social and family history reviewed. Vitals and home medications reviewed. Results and treatment plan discussed. I will assume the care of the patient at this time and will follow the patient, pending CT results and final disposition 1899 -- Patient evaluated by me. 49-year-old female with history of diverticulitis, a recent surgical history of total abdominal hysterectomy with bilateral salpingo-oophorectomy, lysis of adhesions, and bowel repair on 08/24/2024 presents to the ED accompanied by her with complaints of vaginal discharge and pelvic discomfort since 09/29/24. (Postoperatively, she experienced complications, including a pelvic abscess requiring transfer to [facility], where interventional radiology placed a pelvic drain). She states that on Wednesday evening (4 days ago), she experienced chills followed the next day by the onset of yellow vaginal discharge. By yesterday, the discharge had worsened. She also endorses pain in the vaginal area, pelvis, and lower back, which worsens with urination. Additional symptoms include nausea. She also reports increased bowel movements. She denies fever or vomiting. She reports history of cholecystectomy. She still has her appendix. Physical exam shows moderate to severe tenderness to palpation noted over the le ft lower quadrant and suprapubic region. 2024 -- Pelvic exam performed with a female laundry presser present. Mild, scant yellowish vaginal discharge noted. No mucosal erythema, or edema observed. BV swab is ran once a day and will not be ran until tomorrow morning. [id number] -- Discussed case with [the resident physician, attending Dr. Chatman] from Hospitalist service regarding admission. Discussed patients ED course, exam findings, labs, and radiology results. The Hospitalist [agrees] to accept the patient for admission. [id number] -- Discussed case with [Dr. Baker] from [facility] regarding consultation. Discussed patients ED course, exam findings, labs, and radiology results. States to admit the patient and she agrees to consult. Diagnoses: diverticulitis, UTI, vaginal discharge Evaluation data The following diagnostics were reviewed and interpreted by me: radiology exam(s) Interpretation Summary: Examination: CT abdomen with intravenous contrast CT pelvis with intravenous contrast Date and time of exam:October 02, 2024, 1707 hours INDICATIONS: Pelvic pain and discharge post hysterectomy beginning 2 days ago Acute diverticulitis on CT study August 24, 2024. Findings: Diffuse fatty infiltration throughout the liver, no focal liver or splenic lesions Absent gallbladder No pancreatic or adrenal mass No renal or ureteral calculi, no hydronephrosis 10 mm fat-containing umbilical hernia No pericecal inflammatory change Colonic diverticulosis Acute diverticulitis sigmoid colon with very small early peridiverticular abscess, 10 by 4 mm Mild thickening of the urinary bladder wall Intact osseous structures IMPRESSION: Acute sigmoid diverticulitis with very small early peridiverticular abscess Attestation <Wesley Phan - Last Filed: 10/02/24 21:51> Attestation Scribe Attestation: I, Neil Phan, am scribing for and in the presence of Dr. Canales. Provider Notation: Although this document has been carefully reviewed, there may still be some phonetic and other typographical errors. These errors are purely grammatical due to imperfections in the software program and should not be construed in any way to compromise the substance of the patient's medical care during this visit.
[2024-10-02] MEDS: PIPER/TAZO INJ 4.5 GM in SODIUM CHLORIDE 0.9% (POP) 100 ML IV (19:56)
[2024-10-02] MEDS: PHENAZOPYRIDINE HCL 100 MG TABLET PO (19:56)
[2024-10-02 20:00] VITALS: BP 117/88; PULSE 80; PULSE 83; RESP 16; TEMP 36.7; O2SAT 100
[2024-10-02 23:02] VITALS: BP 119/76; PULSE 82; RESP 17; TEMP 36.6; O2SAT 98
[2024-10-03] VITALS (10 sets, daily range): BP systolic 96–114; BP diastolic 64–86; PULSE 65–88; RESP 16–98; TEMP 36.2–37; O2SAT 96–99; BMI 34.6
[2024-10-03] MEDS: HYDROmorphone INJ 2 MG/ML VIAL 0.5 MG IVP (00:24)
[2024-10-03] MEDS: DOXYCYCLINE INJ 100 MG in SODIUM CHLORIDE 0.9% (POP) 100 ML IV ×3 (00:24→21:20)
[2024-10-03] MEDS: CEFTRIAXONE SODIUM 500 MG VIAL IM (00:25)
[2024-10-03] MEDS: ONDANSETRON INJ 2 MG/ML INJ 2 ML 4 MG IV ×3 (00:25→21:19)
--- NOTE | 2024-10-03 01:25 | ESPR_ITS ---
Documentation for date of: 10/03/24 COLLECTION ADVISOR Subjective Subjective Interval history: Patient is almost 6 weeks postop from a FAMILIA/BSO with bowel injury repair by Dr. Fidelia Anand and Dr Storey on 08/24/24. She is a complicated patient with a history of diverticulitis in the past. Her H&P states she was seen as an outpatient by Dr. Anand at [facility].. She presents to the ER reporting vaginal discharge. No fevers or chills. I was distribution warehouse manager for the ER. and called about this patient at 1:00 in the morning. Her labs, vitals and CT scan are reviewed. She has no white count on admission and her hemoglobin is normal. A CT reveals acute diverticulitis with an abscess measuring 10 x 4 mm. Gynecology is consulted to follow along as Dr. Anand did her original hysterectomy. Exam Vital Signs Temp Pulse Resp BP Pulse Ox O2 Del Method 98 F 82 17 119/76 98 Room Air 10/02/24 23:02 10/02/24 23:02 10/02/24 23:02 10/02/24 23:02 10/02/24 23:02 10/02/24 23:02 Urinary Catheter Management Cath placed during this visit: no COLLECTION ADVISOR - PN: Obj Data Labs 10/02/24 13:58 10/02/24 13:58 Labs: Laboratory Results - last 24 hr 10/02/24 10/02/24 13:58 14:08 WBC 7.7 RBC 4.26 Hgb 12.0 Hct 36.6 MCV 86 MCH 28.2 MCHC 32.8 RDW Std Deviation 42.7 Plt Count 349 D Neut % (Auto) 55 Lymph % (Auto) 32 Coos % (Auto) 9 Eos % (Auto) 3 Baso % (Auto) 1 Neut # (Auto) 4.2 Lymph # (Auto) 2.5 Coos # (Auto) 0.7 Eos # (Auto) 0.2 Baso # (Auto) 0.1 Immature Gran # (Auto) 0.03 H Absolute Nucleated RBC 0.00 Immature Gran % 0 Nucleated RBC % 0 Sodium 140 Potassium 4.2 Chloride 105 Carbon Dioxide 25.0 Anion Gap 10 BUN 10 Creatinine 0.7 Estim Creat Clear Calc 96.6 eGFR > 60 BUN/Creatinine Ratio 14 Glucose 93 Calculated Osmolality 278 Lactic Acid 1.1 Calcium 10.4 Corrected Calcium 10.4 H Total Bilirubin 0.4 AST 31 ALT 43 Alkaline Phosphatase 98 Total Protein 7.8 Albumin 4.6 Globulin 3.2 Albumin/Globulin Ratio 1.4 Lipase 43 Procalcitonin 0.05 Ur Collection Type Clean Catch Urine Color Colorless A Urine Clarity Clear Urine pH 7.5 H Ur Specific [place] 1.008 Urine Protein Negative Urine Glucose (UA) Negative Urine Ketones Negative Urine Blood Trace Urine Nitrite Negative Urine Bilirubin Negative Urine Urobilinogen (Auto) Negative Ur Leukocyte Esterase Positive Urine RBC 3 Urine WBC 9 H Ur Squamous Epith Cells < 1 Urine Bacteria None Ur Culture Indicated? Not Indicated COLLECTION ADVISOR - A/P Assessment and plan (1) Vaginal discharge: Problem details: Patient admitted by medicine. Start broad-spectrum antibiotics. Status: Acute (2) Diverticulitis: Problem details: Patient with long history of diverticulitis and acute diverticulitis on CT scan Status: Acute (3) S/P total abdominal hysterectomy and bilateral salpingo-oophorectomy: Problem details: Patient is almost 6 weeks postop from a FAMILIA/BSO by Dr. Anand. Status: Acute (4) Bowel perforation: Problem details: intraoperative complication 08/24/24 repaired intraoperatively and there was no stool spillage according to notes Status: Acute Assessment and plan: Patient was not seen. Chart reviewed. Patient is admitted to medicine for what appears to be a diverticular abscess. The Health Care Analyst team will consult. Will contact Dr. Anand in the morning as it is of unclear whether this is her private clinic patient. And whether she was seen with Dr. Anand for 2-week and 6-week check as an outpatient. Time Spent With Patient Time with patient: less than 15 minutes (Patient not seen. Notes CT scan labs and other records were reviewed by myself)
[2024-10-03] MEDS: metroNIDAZOLE/NS 500 MG IVPB 500 MG/100 ML BAG 200 MG IV ×3 (04:24→21:20)
[2024-10-03 06:17] LABS: Basophils % (Auto) 1 % (0-2.5); Eosinophils # (Auto) 0.3 Thou/mm3 (0.0-0.5); Eosinophils % (Auto) 5 % (0-10); Hematocrit 33.6 % (36.0-46.0); Hemoglobin 11.1 g/dL (12.0-16.0); Immature Granulocytes % (Auto) 1 % (0-0); Immature Granulocytes Auto 0.04 Thou/mm3 (0.00-0.00); Lymphocytes # (Auto) 2.2 Thou/mm3 (1.0-4.8); Lymphocytes % (Auto) 37 % (10-50); Mean Corpuscular Hemoglobin 28.5 pg (25.0-35.0); Mean Corpuscular Volume 86 fL (80-100); Monocytes # (Auto) 0.5 Thou/mm3 (0.0-0.8); Monocytes % (Auto) 9 % (0-12); Neutrophils # (Auto) 2.8 Thou/mm3 (1.8-7.7); Neutrophils % (Auto) 48 % (37-80); Nucleated Red Blood Cell % 0 /100 WBC (0); Platelet Count 330 Thou/mm3 (140-440); RDW Standard Deviation 42.5 fL (36.4-46.3); Red Blood Count 3.89 Miln/mm3 (4.00-5.20)
[2024-10-03 07:03] LABS: Alanine Aminotransferase 37 U/L (10-49); Albumin, Serum 4.1 gm/dL (3.5-5.0); Albumin/Globulin Ratio 1.5 (1.2-2.2); Alkaline Phosphatase 92 U/L (46-116); Anion Gap 8 (7-16); Aspartate Amino Transferase 23 U/L (0-34); BUN/Creatinine Ratio 20 Ratio (12-20); Bilirubin,Total 0.4 mg/dL (0.3-1.2); Blood Urea Nitrogen 14 mg/dL (9-23); Calcium 8.9 mg/dL (8.3-10.6); Calcium (Corrected) 8.9 mg/dL (8.5-10.1); Carbon Dioxide 26.8 mMol/L (20.0-31.0); Cardiac Risk Estimate 6.3 RATIO (3.7-5.6); Chloride 107 mMol/L (98-107); Cholesterol 238 mg/dL (132-200); Creatinine (Component) 0.7 mg/dL (0.6-1.3); Estimated Creatinine Clearance 96.1 mL/min (>60); Globulin 2.7 gm/dL (2.3-3.5); Glucose 100 mg/dL (74-106); HDL Cholesterol 38 mg/dL (40-60); LDL Cholesterol,Calculated 152 mg/dL (0-130); Magnesium 2.1 mg/dL (1.6-2.6); Osmolality,Calculated 283 (275-295); Phosphorous 4.5 mg/dL (2.4-5.1); Potassium 3.8 mMol/L (3.4-5.1); Sodium 142 mMol/L (136-145); Total Protein 6.8 gm/dL (5.7-8.2); Triglycerides 238 mg/dL (30-150); eGFR > 60 See Note
--- NOTE | 2024-10-03 07:59 | PD.RESHP ---
Documentation for date of: 10/03/24 HPI History of Present Illness Chief complaint: vaginal discharge, abdominal pain History of present illness: Lona Diamond is 49 yr female with PMH of cholecystectomy, diverticulitis, abdominal hysterectomy with salpingo-oophorectomy in August 2024, endometriosis spread to colon, lysis of adhesions, bowel repair, HLD, anxiety, and GERD who presented to ED due to chills and vaginal discharge since last Wednesday. Patient stated that discharge is yellow in color, no foul smell, slightly pink-tinged color, associated with abdominal/pelvic pain and hesitancy with dysuria. Also has noted some gas or air upon urination. On Wednesday, pelvic pain worsened with pain 10/10 with no improvement with ibuprofen. Patient had leftover Alexander 5 mg from her surgical procedure which she took 2 of. Pain has slightly improved to 8/10 with the Alexander however patient still decided to come into the ED. Patient's last menstrual period was in May 2024. States that her menstrual cycles were normal in the past. She has a history of 2 miscarriages with 1 full-term . Patient denies any blood in the stool, constipation, diarrhea, and normal appetite. No blood in the stool. She is usually sexually active with her but has not been able to participate in any intercourse since August of her surgery. In ED, vitals were stable. Labs unremarkable. UA was positive for UTI with leukocyte esterase and 9 WBC. He was given Zosyn in the ED. CT abdomen pelvis significant for acute sigmoid diverticulitis, small early peridiverticular abscess drain 10 x 4mm. General surgery Dr. Pickett and OB Dr. Cynthia Baker were consulted and patient was admitted for managment of diverticular abscess/PID. PMH: as noted above PSH: as noted above FamHx: father from [place]. DM/HTN in mother. 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 No acute distress, cooperative HEENT: NCAT, No JVD noted. Mucosa moist. Pupils are equal and reactive to light bilaterally Cardiovascular: Normal S1 and S2. Regular rate and rhythm. Respiratory: Lungs are clear to auscultation bilaterally. No wheezing or crackles heard. Abdomen: Soft, tender to palpation b/L LQ, not distended, normal bowel sounds. Skin: Warm to touch, dry, no rashes noted, c section scar, LLQ laproscopic scar Musculoskeletal: No gross injuries. Able to move all 4 extremities. No pitting edema Neuro: Alert and oriented x3. No focal neuro deficits. Psych: Normal affect and mood Results: Labs 10/03/24 05:17 10/03/24 05:17 Labs: Short CBC 10/02/24 10/03/24 Range/Units 13:58 05:17 WBC 7.7 6.0 (3.6-11.0) Thou/mm3 Hgb 12.0 11.1 L (12.0-16.0) g/dL Hct 36.6 33.6 L (36.0-46.0) % Plt Count 349 D 330 (140-440) Thou/mm3 BMP 10/02/24 10/03/24 13:58 05:17 Sodium 140 142 Potassium 4.2 3.8 Chloride 105 107 Carbon Dioxide 25.0 26.8 BUN 10 14 Creatinine 0.7 0.7 Glucose 93 100 Calcium 10.4 8.9 D Liver Function 10/02/24 10/03/24 Range/Units 13:58 05:17 Total Bilirubin 0.4 0.4 (0.3-1.2) mg/dL AST 31 23 (0-34) U/L ALT 43 37 (10-49) U/L Alkaline Phosphatase 98 92 (46-116) U/L Albumin 4.6 4.1 D (3.5-5.0) gm/dL Urine 10/02/24 Range/Units 14:08 Urine Color Colorless A (Lt Yel-Yel) Urine Clarity Clear (Clear/Hazy) Urine pH 7.5 H (5.0-7.0) Ur Specific [place] 1.008 (1.001-1.035) Urine Protein Negative (Neg - Trace) Urine Glucose (UA) Negative (Negative) Quality Measures Quality Measures none Medications Home Medications and Allergies Home Medications ?Medication ?Instructions ?Recorded ?Confirmed ?Type acetaminophen 500 mg tablet 1,000 mg PO Q6H PRN pain 08/23/24 08/24/24 History (Acetaminophen Extra Strength) atorvastatin 40 mg tablet 10 mg PO HS 08/23/24 08/24/24 History cholecalciferol (vitamin D3) 50 10,000 unit PO QWEEK 08/23/24 08/24/24 History mcg (2,000 unit) tablet (Vitamin D3) fluoxetine 20 mg capsule 20 mg PO DAILY 08/23/24 08/24/24 History omeprazole 40 mg capsule,delayed 40 mg PO DAILY 08/23/24 08/24/24 History release rimegepant 75 mg disintegrating mg 08/26/24 History tablet (Nurtec ODT) Allergies Allergy/AdvReac Type Severity Reaction Status Date / Time No Known Allergies Allergy Verified 10/02/24 13:17 Visit Medications Acetaminophen (Acetaminophen 325 Mg Tablet) 650 mg PO Q6H PRN PRN Reason: Fever >100.3 or pain Stop: 11/02/24 01:02 Ceftriaxone Sodium/Dextrose (Rocephin/D5w 1gm Iv Premix) 1,000 mg in 50 mls @ 100 mls/hr IV QDAY [facility] Stop: 10/10/24 01:23 Last Admin: 10/03/24 05:12 Dose: Not Given Doxycycline Hyclate 100 mg/ (Sodium Chloride) 100 mls @ 100 mls/hr IV BID [facility] Stop: 10/10/24 08:59 Metronidazole (Flagyl 500 Mg Iv) 500 mg in 100 mls @ 200 mls/hr IV BID [facility] Stop: 10/10/24 01:29 Last Admin: 10/03/24 04:24 Dose: 200 mls/hr Morphine Sulfate (Morphine Sulf Inj 10 Mg/Ml Vial) 2 mg IVP Q6HR PRN PRN Reason: PAIN SCALE 7-10 (Severe Stop: 10/08/24 01:39 Ondansetron HCl (Ondansetron Inj 2 Mg/Ml Inj 2 Ml) 4 mg IV Q6H PRN; Protocol PRN Reason: NAUSEA OR VOMITING Stop: 11/02/24 01:02 Oxycodone/Acetaminophen (Oxycodone/Apap 5/325 Tablet) 1 tab PO X1 PRN PRN Reason: PAIN SCALE 4-6 (Moderate Stop: 10/08/24 01:31 Pantoprazole Sodium (Pantoprazole 40 Mg Tablet) 40 mg PO QDAY [facility] Stop: 11/02/24 08:59 Sennosides (Senna Tablet) 1 tab PO QDAY PRN; Protocol PRN Reason: constipation Stop: 11/02/24 01:02 Discontinued Medications Ceftriaxone Sodium (Ceftriaxone Sodium 500 Mg Vial) 500 mg IM X1 ONE Stop: 10/03/24 00:05 Last Admin: 10/03/24 00:25 Dose: 500 mg Enoxaparin Sodium (Enoxaparin Sod Inj 40 Mg/0.4 Ml Syringe) 40 mg SC QDAY [facility] Stop: 10/17/24 08:59 Hydromorphone HCl (Hydromorphone Inj 2 Mg/Ml Vial) 0.5 mg IVP PRN [facility] Stop: 10/08/24 00:14 Last Admin: 10/03/24 00:24 Dose: 0.5 mg Piperacillin Sod/Tazobactam (Sod 4.5 gm/ Sodium Chloride) 100 mls @ 200 mls/hr IV X1 ONE Stop: 10/02/24 20:06 Last Admin: 10/02/24 19:50 Dose: Not Given Doxycycline Hyclate 100 mg/ (Sodium Chloride) 100 mls @ 100 mls/hr IV X1 ONE Stop: 10/02/24 20:35 Last Admin: 10/02/24 19:49 Dose: Not Given Piperacillin Sod/Tazobactam (Sod 4.5 gm/ Sodium Chloride) 100 mls @ 200 mls/hr IV X1 ONE Stop: 10/02/24 20:14 Last Infusion: 10/02/24 20:26 Dose: Infused Doxycycline Hyclate 100 mg/ (Sodium Chloride) 100 mls @ 100 mls/hr IV X1 ONE Stop: 10/03/24 01:03 Last Admin: 10/03/24 00:24 Dose: 100 mls/hr Ondansetron HCl (Ondansetron Inj 2 Mg/Ml Inj 2 Ml) 4 mg IV X1 ONE; Protocol Stop: 10/03/24 00:02 Last Admin: 10/03/24 00:25 Dose: 4 mg Phenazopyridine HCl (Phenazopyridine Hcl 100 Mg Tablet) 100 mg PO X1 ONE Stop: 10/02/24 19:42 Last Admin: 10/02/24 19:56 Dose: 100 mg Assessment & Plan Plan Lona Diamond is 49 yr female with PMH of diverticulitis, abdominal hysterectomy with salpingo-oophorectomy in August 2024, endometriosis spread to colon, lysis of adhesions, bowel repair who presented to ED due to chills and vaginal discharge since last Wednesday. General surgery Dr. Pickett and OB Dr. Baker were consulted and patient was admitted for managment of diverticular abscess/PID. #Acute diverticulitis #Diverticular abscess CT abdomen pelvis significant for acute sigmoid diverticulitis, small early peridiverticular abscess drain 10 x 4mm. Labs stable. Possible rectovaginal fistula vs active diverticulitis and abscesss. -Gen surg Dr. Pickett consulted -OB Dr. Cynthia Baker consulted -doxycyline 100 BID -ceftriaxone 1g daily -metronidazole daily -NPO -IV fluids -blood culture pending -pain mgmt with tylenol, oxycodone for moderate, morphine for severe -STD pannel pending #Pelvic inflammatory disease workup #UTI -urine culture pending -mgmt as above Health maintenance: Dispo: med surg, diverticulitis/abscess Diet: NPO DVT prophylaxis: SCD CODE STATUS: Full code The patient's management plan was discussed with my attending physician Dr. Felix. Araceli Disla, PGY-1 Attending Provider Attestation/Addendum I attest that I was physically present for the evaluation, physical examination, lab and imaging review of the patient with the residents. I discussed the case with the residents and agree with the findings and plans of care as documented above. Patient is a 49 years old female with past medical history of cholecystectomy, diverticulitis, abdominal hysterectomy with salpingo-oophorectomy, endometriosis spreading to her colon, lysis of adhesions, bowel repair, hyperlipidemia, anxiety and GERD who presented to the ED with complaint of vaginal discharge and abdominal pain. Patient has been having vaginal discharge since last Wednesday, she has also noticed hesitancy and dysuria, abdominal pain 10/10, air on urination. Her last menstrual period was on May 2024. In the ED, her vitals were stable, lab results were nonconcerning. Urinalysis was done, showed [address] abdomen/pelvis was obtained, which shows acute sigmoid diverticulitis and small early peridiverticular abscess. We will admit the patient for management of acute diverticulitis and diverticular abscess. There is also concern for pelvic inflammatory disease. We will start her on broad antibiotics including doxycycline, ceftriaxone and metronidazole to cover for both diverticulitis, UTI and PID. Cultures were obtained, vaginal panel ordered. We will also obtain general surgery and INSPECTOR AND UNLOADER consult as patient has extensive abdominal surgical history from before. Sachin Felix MD
[2024-10-03] MEDS: cefTRIAXone/D5w 1gm IV premix 1,000 MG/50 ML BAG IV (09:52)
[2024-10-03] MEDS: MORPHINE SULF INJ 10 MG/ML VIAL 2 MG IVP (12:06)
--- NOTE | 2024-10-03 14:08 | PD.SURPROG ---
Documentation for date of: 10/03/24 Subjective Subjective Brief History: 49-year-old female underwent FAMILIA/BSO, lysis of adhesions and repair of sigmoid colon injury on 08/24/2024. She recovered well after the surgery initially. A week later after her surgery she developed pelvic abscess, underwent percutaneous drainage at [facility] and received IV antibiotics. She has been doing well for the past few weeks. Over the past few days she has developed lower abdominal pain, vaginal discharge and dysuria. She denies nausea, vomiting, fever or chills. Her last bowel movement was yesterday. A CT scan was obtained that revealed diverticulitis of sigmoid colon with small peridiverticular abscess. She was started on IV antibiotics and admitted for further management. Narrative: Patient is resting comfortably, her symptoms are improving. Exam Vital Signs Temp Pulse Resp BP Pulse Ox O2 Del Method 98.4 F 85 16 98/84 97 Room Air 10/03/24 08:00 10/03/24 08:00 10/03/24 08:00 10/03/24 08:00 10/03/24 08:00 10/03/24 08:00 Constitutional Constitutional: no acute distress Routine Abdominal Exam Comments: Abdomen is soft and nondistended. Her incision has healed well. She has minimal lower abdominal tenderness to deep palpation, no rebound tenderness or peritonitis Assessment & Plan Diagnosis (1) Diverticulitis: Status: Acute (2) Vaginal discharge: Status: Acute (3) UTI (urinary tract infection): Status: Acute Plan Agree with current management. Continue IV antibiotics. Will start patient on clear liquids. Awaiting ELECTRONIC EQUIPMENT INSTALLER evaluation for vaginal discharge.
--- NOTE | 2024-10-03 14:33 | PC.RT ---
Lona Pickard is a 49 year old female admitted for Bowl abscess, Diverticulitis. SS met with patient at bedside to review demographic information. Patient reports she lives at home with her who is surrogate decision maker, [phone]. Patient does not utilize any source of DME to assist with ambulation. Choice of pharmacy is [facility]. PCP is Divya kumar in [place]. At time of discharge patient will return home, will provide transportation. NExt of kin, Discarge plan: Home
--- NOTE | 2024-10-03 17:01 | PD.RESPRO ---
Documentation for date of: 10/03/24 Subjective Subjective Interval history: Patient is seen and examined bedside. No acute overnight events. Complaining of yellowish vaginal discharge and air from the vagina associated with lower abdominal pain Denies fever, bloody discharge, vomitings Vitals are stable. Labs showed WBC 6, triglycerides 238, cholesterol 238, LDL 152 On physical examination, yellowish discharge is seen coming out of the vagina but not foul-smelling, does not look like fecal matter Serology for vaginosis is pending Dr. Fidelia Anand, Dr Storey were consulted, will appreciate their recommendations Will continue antibiotics till then and statin is added for hyperlipidemia Exam Vital Signs Temp Pulse Resp BP Pulse Ox O2 Del Method 97.6 F 86 16 96/64 97 Room Air 10/03/24 16:00 10/03/24 16:06 10/03/24 16:06 10/03/24 16:00 10/03/24 16:00 10/03/24 16:00 Narrative Exam General: Awake. Obese. Appears resting comfortably HEENT: Normocephalic, atraumatic, mucous membranes moist. Heart: Regular rate and rhythm, no murmurs. Lungs: Clear to auscultation with no wheezing or crackles. Abdomen: Soft, nondistended, mild tenderness in the hypogastric and right lower quadrant, positive bowel sounds. ?No guarding or rebound tenderness. Surgical incision noted Genitourinary: Noted yellowish discharge from the vagina, nonfoul-smelling, no erosions noted Neurologic: Alert and oriented x3, no gross neurological deficit, and patient able to move all 4 extremities. Extremities: No edema. Skin: No rash or ecchymoses. Objective Labs 10/04/24 05:08 10/04/24 05:08 Labs: Laboratory Results - last 24 hr 10/03/24 05:17 WBC 6.0 RBC 3.89 L Hgb 11.1 L Hct 33.6 L MCV 86 MCH 28.5 MCHC 33.0 RDW Std Deviation 42.5 Plt Count 330 Neut % (Auto) 48 Lymph % (Auto) 37 [place] % (Auto) 9 Eos % (Auto) 5 Baso % (Auto) 1 Neut # (Auto) 2.8 Lymph # (Auto) 2.2 [place] # (Auto) 0.5 Eos # (Auto) 0.3 Baso # (Auto) 0.0 Immature Gran # (Auto) 0.04 H Absolute Nucleated RBC 0.00 Immature Gran % 1 H Nucleated RBC % 0 Sodium 142 Potassium 3.8 Chloride 107 Carbon Dioxide 26.8 Anion Gap 8 BUN 14 Creatinine 0.7 Estim Creat Clear Calc 96.1 eGFR > 60 BUN/Creatinine Ratio 20 Glucose 100 Calculated Osmolality 283 Calcium 8.9 D Corrected Calcium 8.9 D Phosphorus 4.5 Magnesium 2.1 Total Bilirubin 0.4 AST 23 ALT 37 Alkaline Phosphatase 92 Total Protein 6.8 Albumin 4.1 D Globulin 2.7 Albumin/Globulin Ratio 1.5 Triglycerides 238 H Cholesterol 238 H LDL Cholesterol, Calc 152 H HDL Cholesterol 38 L Cholesterol/HDL Ratio 6.3 H Quality Measures Quality Measures none Assessment & Plan Assessment Current Active Medications: Generic Name Dose Route Start Last Admin Trade Name Freq PRN Reason Stop Dose Admin Acetaminophen 650 mg 10/03/24 01:03 Acetaminophen 325 Mg Tablet PO 11/02/24 01:02 Q6H PRN Fever >100.3 or pain Protocol Doxycycline Hyclate 100 mg/ 100 mls @ 100 mls/hr 10/03/24 09:00 10/03/24 10:05 Sodium Chloride IV 10/10/24 08:59 100 mls/hr BID DANIEL Administration Metronidazole 500 mg in 100 mls @ 200 mls/hr 10/03/24 01:30 10/03/24 10:16 Flagyl 500 Mg Iv IV 10/10/24 01:29 200 mls/hr BID DANIEL Administration Ceftriaxone Sodium/Dextrose 1,000 mg in 50 mls @ 100 mls/hr 10/03/24 09:45 10/03/24 09:52 Rocephin/D5w 1gm Iv Premix IV 10/10/24 09:44 100 mls/hr QDAY DANIEL Administration Sodium Chloride 1,000 mls @ 75 mls/hr 10/03/24 12:21 Ns IV 11/02/24 12:20 .[id number] DANIEL Morphine Sulfate 2 mg 10/03/24 01:40 10/03/24 12:06 Morphine Sulf Inj 10 Mg/Ml Vial IVP 10/08/24 01:39 2 mg Q6HR PRN Administration PAIN SCALE 7-10 (Severe Ondansetron HCl 4 mg 10/03/24 01:03 10/03/24 15:54 Ondansetron Inj 2 Mg/Ml Inj 2 Ml IV 11/02/24 01:02 4 mg Q6H PRN Administration NAUSEA OR VOMITING Protocol Oxycodone/Acetaminophen 1 tab 10/03/24 01:32 Oxycodone/Apap 5/325 Tablet PO 10/08/24 01:31 X1 PRN PAIN SCALE 4-6 (Moderate Pantoprazole Sodium 40 mg 10/03/24 09:00 10/03/24 10:19 Pantoprazole 40 Mg Tablet PO 11/02/24 08:59 Not Given QDAY DANIEL Sennosides 1 tab 10/03/24 01:03 Senna Tablet PO 11/02/24 01:02 QDAY PRN constipation Protocol Plan Lona Diamond is 49 yr female with PMH of diverticulitis, abdominal hysterectomy with salpingo-oophorectomy in August 2024, endometriosis spread to colon, lysis of adhesions, bowel repair who presented to ED due to chills and vaginal discharge since last Wednesday. General surgery Dr. Pickett and OB Dr. Baker were consulted and patient was admitted for managment of diverticular abscess/PID. # Vaginal discharge, unsure of the etiology # S/p hysterectomy and bilateral salpingo-oophorectomy, endometriosis, complicated by abscess s/p drainage - Presented to the hospital with c/o yellowish discharge coming out of the vagina associated with abdominal pain, burning micturition since 4 days - Denied fever, bleeding from the vagina - CT abdomen pelvis significant for acute sigmoid diverticulitis, small early peridiverticular abscess drain 10 x 4mm. Labs stable. Previous CT scan done on 09/01/2024 showed diverticular abscess of 10 cm, the new CT finding could be the resolving abscess from then, unlikely of diverticulitis Plan -doxycyline 100 BID, ceftriaxone 1g daily, metronidazole daily -blood culture pending -pain mgmt with tylenol, oxycodone for moderate, morphine for severe -STD panel pending -Dr Storey and Dr. Fidelia Anand consulted, will appreciate the recommendations Health maintenance: Dispo: med surg, diverticulitis/abscess Diet: Nclear liquid diet DVT prophylaxis: SCD CODE STATUS: Full code Patient plan of care was discussed with the attending physician, Dr. Padilla and senior resident Dr. Deena Morrissey, PGY1 Attending Provider Attestation/Addendum I reviewed labs, imaging, EKG, home medications and prior available records. Face to face evaluation was performed by me. I have personally examined the patient and discussed assessment and plan with the IM team. I reviewed the resident note and agree with the plan with exceptions as below. Intrapelvic abscess History of recent salpingo oophorectomy Acute diverticulitis Covering with ceftriaxone/Flagyl Management of pain as needed Management of nausea/vomiting as needed Consulted Dr. Baker from [employer] [facility] who recommended to consult Dr. Anand who did the surgery in addition to general surgery
[2024-10-03] MEDS: ATORVASTATIN CALCIUM 20 MG TABLET PO (21:20)
[2024-10-03] MEDS: SODIUM CHLORIDE 0.9% 1000 ML 1,000 ML 75 ML IV (21:22)
[2024-10-03] MEDS: SUMAtriptan 25 MG TABLET PO (21:52)
[2024-10-04] VITALS (8 sets, daily range): BP systolic 101–139; BP diastolic 65–93; PULSE 69–85; RESP 16–98; TEMP 36.4–36.7; O2SAT 96–98
[2024-10-04 06:01] LABS: Basophils % (Auto) 1 % (0-2.5); Eosinophils # (Auto) 0.3 Thou/mm3 (0.0-0.5); Eosinophils % (Auto) 4 % (0-10); Hematocrit 33.2 % (36.0-46.0); Immature Granulocytes % (Auto) 1 % (0-0); Immature Granulocytes Auto 0.03 Thou/mm3 (0.00-0.00); Lymphocytes # (Auto) 2.1 Thou/mm3 (1.0-4.8); Lymphocytes % (Auto) 36 % (10-50); Mean Corpuscular HGB Conc 33.1 g/dl (31.0-37.0); Mean Corpuscular Hemoglobin 28.2 pg (25.0-35.0); Mean Corpuscular Volume 85 fL (80-100); Monocytes # (Auto) 0.5 Thou/mm3 (0.0-0.8); Monocytes % (Auto) 8 % (0-12); Neutrophils # (Auto) 2.9 Thou/mm3 (1.8-7.7); Neutrophils % (Auto) 51 % (37-80); Nucleated Red Blood Cell % 0 /100 WBC (0); Platelet Count 292 Thou/mm3 (140-440); RDW Standard Deviation 42.2 fL (36.4-46.3); White Blood Count 5.7 Thou/mm3 (3.6-11.0)
[2024-10-04 07:18] LABS: BVAG Candida Negative (Negative); Bacterial Vaginosis Markers Negative (Negative); Candida glabrata Negative (Negative); Candida krusei PCR Negative (Negative); Trichomonas Negative (Negative)
[2024-10-04 07:46] LABS: Alanine Aminotransferase 35 U/L (10-49); Albumin, Serum 4.1 gm/dL (3.5-5.0); Albumin/Globulin Ratio 1.7 (1.2-2.2); Alkaline Phosphatase 88 U/L (46-116); Anion Gap 11 (7-16); Aspartate Amino Transferase 22 U/L (0-34); BUN/Creatinine Ratio 16 Ratio (12-20); Bilirubin,Total 0.4 mg/dL (0.3-1.2); Blood Urea Nitrogen 11 mg/dL (9-23); Calcium 8.8 mg/dL (8.3-10.6); Calcium (Corrected) 8.8 mg/dL (8.5-10.1); Carbon Dioxide 22.2 mMol/L (20.0-31.0); Chloride 109 mMol/L (98-107); Creatinine (Component) 0.7 mg/dL (0.6-1.3); Estimated Creatinine Clearance 96.1 mL/min (>60); Globulin 2.4 gm/dL (2.3-3.5); Glucose 95 mg/dL (74-106); Osmolality,Calculated 282 (275-295); Potassium 3.7 mMol/L (3.4-5.1); Sodium 142 mMol/L (136-145); Thyroid Stimulating Hormone 0.57 uIU/mL (0.55-4.78); Total Protein 6.5 gm/dL (5.7-8.2); eGFR > 60 See Note
[2024-10-04] MEDS: DOXYCYCLINE INJ 100 MG in SODIUM CHLORIDE 0.9% (POP) 100 ML IV ×2 (08:05→21:18)
[2024-10-04] MEDS: PANTOPRAZOLE 40 MG TABLET PO (08:56)
--- NOTE | 2024-10-04 09:03 | PC.SS ---
SS follow up note; Patient will continue on IV ABX X1 Day, when medically cleared, patient will return back home. Surgery on board.
[2024-10-04] MEDS: metroNIDAZOLE/NS 500 MG IVPB 500 MG/100 ML BAG 200 MG IV ×2 (09:08→22:19)
[2024-10-04] MEDS: cefTRIAXone/D5w 1gm IV premix 1,000 MG/50 ML BAG IV (09:51)
--- NOTE | 2024-10-04 11:40 | ESPR_ITS ---
Documentation for date of: 10/04/24 Subjective Subjective Narrative: Patient is seen and examined. She is feeling much better. She is tolerating diet without nausea or vomiting and having bowel movements. Her dysuria improved Exam Vital Signs Temp Pulse Resp BP Pulse Ox O2 Del Method 97.5 F 69 19 139/93 H 96 Room Air 10/04/24 11:00 10/04/24 11:00 10/04/24 11:00 10/04/24 11:00 10/04/24 11:10/04/24 11:00 Constitutional Constitutional: no acute distress Routine Abdominal Exam Comments: Abdomen is soft and nondistended. Bowel sounds are active. She has very minimal tenderness to deep palpation, no rebound tenderness or peritonitis Assessment & Plan Plan There are no indications for surgical intervention. Patient can be discharged o n oral antibiotic from surgical standpoint. Follow-up with Dr Storey in 2 weeks for an outpatient colonoscopy
[2024-10-04] MEDS: FLUoxetine HCL 10 MG CAPSULE 20 MG PO (11:49)
--- NOTE | 2024-10-04 13:59 | ESCONSULT_ITS ---
[employer] HPI Data of Consult Patient: known to practice within the last 3 years Consult date: 10/04/24 Requesting Physician: Fredi Padilla MD Primary Care Provider: Physician No Primary/Family Consult Narrative Reason for consult: pelvic pain History of present illness: Patient is seen and examined bedside. No acute overnight events. Complaining of yellowish vaginal discharge and air from the vagina associated with lower abdominal pain Denies fever, bloody discharge, vomitings Vitals are stable. Labs showed WBC 6, triglycerides 238, cholesterol 238, LDL 152 On physical examination, yellowish discharge is seen coming out of the vagina but not foul-smelling, does not look like fecal matter Serology for vaginosis is pending Dr. Fidelia Anand, Dr Storey were consulted, will appreciate their recommendations Will continue antibiotics till then and statin is added for hyperlipidemia cc:: cc: Fredi Padilla MD Review of Systems Constitutional Constitutional: Reports system reviewed and no additional complaints, except as documented Gastrointestinal Gastrointestinal: Reports constipation Genitourinary Genitourinary: Reports system reviewed and no additional complaints, except as documented and Reports vaginal discharge (small , white discharge , seen with speculum and with RN Yisel ) Comments: no odor and no bleeding Neurologic Neurologic: Reports system reviewed and no additional complaints, except as documented Comments: alertx 3 and no focal deficit Psychiatric Psychiatric: Reports system reviewed and no additional complaints, except as documented Past Medical History Surgical History OTHER SURGICAL HX: recent FAMILIA/BSO and lysis of adhesions and large bowel tear repair Meds Home Medications and Allergies Home Medications ?Medication ?Instructions ?Recorded ?Confirmed ?Type acetaminophen 500 mg tablet 1,000 mg PO Q6H PRN pain 0 08/23/24 10/04/24 History (Acetaminophen Extra Strength) atorvastatin 40 mg tablet 10 mg PO HS 08/23/24 5 History cholecalciferol (vitamin D3) 50 10,000 unit PO QWEEK 0 08/23/24 10/04/24 History mcg (2,000 unit) tablet (Vitamin D3) fluoxetine 20 mg capsule 20 mg PO DAILY 08/23/24 04/0 08/29 History omeprazole 40 mg capsule,delayed 40 mg PO DAILY 10/04/24 History release rimegepant 75 mg disintegrating mg 08/26/24 History tablet (Nurtec ODT) sumatriptan succinate 50 mg tablet 50 mg PO DAILY PRN migraine 10/04/24 10/04/24 History (Imitrex) headache Allergies Allergy/AdvReac Type Severity Reaction Status Date / Time No Known Allergies Allergy Verified 10/02/24 13:17 Exam - [employer] Vital Signs Temp Pulse Resp BP Pulse Ox O2 Del Method 97.5 F 69 19 139/93 H 96 Room Air 10/04/24 11:00 10/04/24 11:00 10/04/24 11:00 10/04/24 11:00 10/04/24 11:00 10/04/24 11:00 Narrative Exam pelvic exam reveals tenderness to palpation moderate at the vaginal vault area , but vagianl healing is there with good length , smooth mucosa and no dehiscence or bleeding or abnormal discharge Constitutional Constitutional: no acute distress, obese and cooperative Routine Abdominal Exam Comments: In cision is C,D and intact and well healed Detailed Abdominal Exam Bowel sounds: hyperactive Routine Extremities Exam Extremities: Present full ROM, pulses intact and normal capillary refill Routine Skin Exam Skin: Present intact and normal turgor [employer] - Results Labs 10/04/24 05:08 10/04/24 05:08 Labs: Short CBC 10/04/24 Range/Units 05:08 WBC 5.7 (3.6-11.0) Thou/mm3 Hgb 11.0 L (12.0-16.0) g/dL Hct 33.2 L (36.0-46.0) % Plt Count 292 D (140-440) Thou/mm3 BMP 10/04/24 05:08 Sodium 142 Potassium 3.7 Chloride 109 H Carbon Dioxide 22.2 BUN 11 Creatinine 0.7 Glucose 95 Calcium 8.8 Liver Function 10/04/24 Range/Units 05:08 Total Bilirubin 0.4 (0.3-1.2) mg/dL AST 22 (0-34) U/L ALT 35 (10-49) U/L Alkaline Phosphatase 88 (46-116) U/L Albumin 4.1 (3.5-5.0) gm/dL Impressions Impression: vaginal vault pain and tenderness likely due to pelvic infection due to resolving diverticulitis . Vaginal exam is normal except for tenderness at the vaginal vault Assessment and Plan Additional Assessment & Plan Additional Plan: recommend another day of iv antibiotics and patient can follow up at my office next week on Wednesday at 2 pm . Patient to call office to schedule appointment . pelvic rest x 3 weeks . ED precautions
--- NOTE | 2024-10-04 14:48 | ESPR_ITS ---
<Statement entered by Nilay Shaffer MD - 10/05/24 08:59> Senior Resident Attestation: I supervised/discussed management plan with international organizer physician Dr. Morrissey, and was involved in the care of this patient. I personally saw and examined the patient and discussed the assessment and plan with the entire medicine team, including my attending. I agree with the assessment and plan as documented. Patient's care was discussed with attending physician, Dr. Padilla. Nilay Shaffer MD PGY-2. Documentation for date of: 10/04/24 Subjective Subjective Interval history: Patient is seen and examined bedside Overnight, patient had a migraine attack and received sumatriptan. This morning, patient stated that she is feeling well and no further complaints Also reported that her vaginal discharge is decreasing and abdominal pain is decreasing Vitals are stable. Labs showed hemoglobin 11, STD serology and blood cultures came back negative Dr. Anand saw the patient and recommended to continue IV antibiotic for 1 more day and discharge her tomorrow with oral antibiotics on outpatient basis Added clotrimazole based on Dr. Anand's recommendations for vaginal discharge Exam Vital Signs Temp Pulse Resp BP Pulse Ox O2 Del Method 97.5 F 69 19 139/93 H 96 Room Air 10/04/24 11:00 10/04/24 11:00 10/04/24 11:00 10/04/24 11:00 10/04/24 11:10/04/24 11:00 Narrative Exam General: Awake. Obese. Appears resting comfortably HEENT: Normocephalic, atraumatic, mucous membranes moist. Heart: Regular rate and rhythm, no murmurs. Lungs: Clear to auscultation with no wheezing or crackles. Abdomen: Soft, nondistended, mild tenderness in the hypogastric and right lower quadrant, positive bowel sounds. ?No guarding or rebound tenderness. Surgical incision noted Genitourinary: Noted yellowish discharge from the vagina, nonfoul-smelling, no erosions noted Neurologic: Alert and oriented x3, no gross neurological deficit, and patient able to move all 4 extremities. Extremities: No edema. Skin: No rash or ecchymoses. Objective Labs 10/04/24 05:08 10/04/24 05:08 Labs: Laboratory Results - last 24 hr 10/04/24 10/04/24 04:35 05:08 WBC 5.7 RBC 3.90 L Hgb 11.0 L Hct 33.2 L MCV 85 MCH 28.2 MCHC 33.1 RDW Std Deviation 42.2 Plt Count 292 D Neut % (Auto) 51 Lymph % (Auto) 36 [place] % (Auto) 8 Eos % (Auto) 4 Baso % (Auto) 1 Neut # (Auto) 2.9 Lymph # (Auto) 2.1 [place] # (Auto) 0.5 Eos # (Auto) 0.3 Baso # (Auto) 0.0 Immature Gran # (Auto) 0.03 H Absolute Nucleated RBC 0.00 Immature Gran % 1 H Nucleated RBC % 0 Sodium 142 Potassium 3.7 Chloride 109 H Carbon Dioxide 22.2 Anion Gap 11 BUN 11 Creatinine 0.7 Estim Creat Clear Calc 96.1 eGFR > 60 BUN/Creatinine Ratio 16 Glucose 95 Calculated Osmolality 282 Calcium 8.8 Corrected Calcium 8.8 Total Bilirubin 0.4 AST 22 ALT 35 Alkaline Phosphatase 88 Total Protein 6.5 Albumin 4.1 Globulin 2.4 Albumin/Globulin Ratio 1.7 TSH 0.57 C. glabrata (PCR) Negative C. krusei (PCR) Negative [place] species DNA Negative Trichomonas DNA Probe Negative Bact vaginosis (PCR) Negative Quality Measures Quality Measures none Assessment & Plan Assessment Current Active Medications: Generic Name Dose Route Start Last Admin Trade Name Freq PRN Reason Stop Dose Admin Acetaminophen 650 mg 10/03/24 01:03 Acetaminophen 325 Mg Tablet PO 11/02/24 01:02 Q6H PRN Fever >100.3 or pain Protocol Hydrocodone Bitart/Acetaminophen 1 tab 10/03/24 20:43 Hydrocodone/Apap 5/325 Tablet PO 10/08/24 20:42 Q6HR PRN Pain 4-10 Protocol Atorvastatin Calcium 20 mg 10/03/24 21:00 10/03/24 21:20 Atorvastatin Calcium 20 Mg Tablet PO 11/02/24 20:59 20 mg HS DANIEL Administration Fluoxetine HCl 20 mg 10/04/24 10:45 10/04/24 11:49 Fluoxetine Hcl 10 Mg Capsule PO 11/03/24 10:44 20 mg DAILY DANIEL Administration Doxycycline Hyclate 100 mg/ 100 mls @ 100 mls/hr 10/03/24 09:00 10/04/24 08:05 Sodium Chloride IV 10/10/24 08:59 100 mls/hr BID DANIEL Administration Metronidazole 500 mg in 100 mls @ 200 mls/hr 10/03/24 01:30 10/04/24 09:08 Flagyl 500 Mg Iv IV 10/10/24 01:29 200 mls/hr BID DANIEL Administration Ceftriaxone Sodium/Dextrose 1,000 mg in 50 mls @ 100 mls/hr 10/03/24 09:45 10/04/24 09:51 Rocephin/D5w 1gm Iv Premix IV 10/10/24 09:44 100 mls/hr QDAY DANIEL Administration Sodium Chloride 1,000 mls @ 75 mls/hr 10/03/24 12:21 10/03/24 21:22 Ns IV 11/02/24 12:20 75 mls/hr .[id number] DANIEL Administration Morphine Sulfate 2 mg 10/03/24 01:40 10/03/24 12:06 Morphine Sulf Inj 10 Mg/Ml Vial IVP 10/08/24 01:39 2 mg Q6HR PRN Administration PAIN SCALE 7-10 (Severe Protocol Ondansetron HCl 4 mg 10/03/24 20:43 10/03/24 21:19 Ondansetron Inj 2 Mg/Ml Inj 2 Ml IV 11/02/24 01:02 4 mg Q4H PRN Administration NAUSEA OR VOMITING Protocol Pantoprazole Sodium 40 mg 10/03/24 09:00 10/04/24 08:56 Pantoprazole 40 Mg Tablet PO 11/02/24 08:59 40 mg QDAY DANIEL Administration Sennosides 1 tab 10/03/24 01:03 Senna Tablet PO 11/02/24 01:02 QDAY PRN constipation Protocol Sumatriptan Succinate 50 mg 10/04/24 10:43 Sumatriptan 25 Mg Tablet PO 11/03/24 10:42 DAILY PRN migraine headache Protocol Plan Lona Diamond is 49 yr female with PMH of diverticulitis, abdominal hysterectomy with salpingo-oophorectomy in August 2024, endometriosis spread to colon, lysis of adhesions, bowel repair who presented to ED due to chills and vaginal discharge since last Wednesday. General surgery Dr. Pickett and OB Dr. Baker were consulted and patient was admitted for managment of diverticular abscess/PID. # Vaginal discharge, unsure of the etiology - likely mild PID # S/p hysterectomy and bilateral salpingo-oophorectomy, endometriosis, c omplicated by abscess s/p drainage - Presented to the hospital with c/o yellowish discharge coming out of the vagina associated with abdominal pain, burning micturition since 4 days - Denied fever, bleeding from the vagina - CT abdomen pelvis significant for acute sigmoid diverticulitis, small early peridiverticular abscess drain 10 x 4mm. Labs stable. Previous CT scan done on 09/01/2024 showed diverticular abscess of 10 cm, the new CT finding could be the resolving abscess from then, unlikely of diverticulitis Plan -doxycyline 100 BID, ceftriaxone 1g daily, metronidazole daily -blood culture showed no growth after 48 hours -pain mgmt with tylenol, oxycodone for moderate, morphine for severe -STD panel came back negative -Dr Storey and Dr. Fideila Anand consulted, will appreciate the recommendations - recommended to continue IV antibiotics till tomorrow and discharge, follow-up in outpatient with Dr. Storey and Dr. Anand -Added clotrimazole 1% vaginal cream Health maintenance: Dispo: med surg, diverticulitis/abscess Diet: Nclear liquid diet DVT prophylaxis: SCD CODE STATUS: Full code Patient plan of care was discussed with the attending physician, Dr. Padilla and senior resident Dr. Deena Morrissey, PGY1 Attending Provider Attestation/Addendum I reviewed labs, imaging, EKG, home medications and prior available records. Face to face evaluation was performed by me. I have personally examined the patient and discussed assessment and plan with the IM team. I reviewed the resident note and agree with the plan with exceptions as below. Intrapelvic abscess History of recent salpingo oophorectomy Acute diverticulitis Covering with ceftriaxone/Flagyl Management of pain as needed Management of nausea/vomiting as needed Consulted Dr. Baker from [facility] who recommended to consult Dr. Anand who did the surgery in addition to general surgery: Dr. Storey recommended conservative management, clear liquid diet, IV antibiotics. Dr. Anand recommended to advance diet as tolerated-to above-mentioned. Will discharge tomorrow if the patient continues to improve on oral antibiotics. Outpatient follow-up with [facility] [employer]/surgery
[2024-10-04] MEDS: HYDROcodone/APAP 5/325 TABLET 1 TAB PO (19:30)
[2024-10-04] MEDS: ATORVASTATIN CALCIUM 20 MG TABLET PO (21:18)
[2024-10-04] MEDS: CLOTRIMAZOLE VAG CR 1% 45 GM TUBE VAGINAL (21:21)
[2024-10-05] VITALS: BP 117/71; PULSE 73; RESP 16; TEMP 36.8; O2SAT 97
[2024-10-05 04:00] VITALS: BP 125/84; PULSE 76; RESP 18; TEMP 36.7; O2SAT 97
[2024-10-05] MEDS: ACETAMINOPHEN 325 MG TABLET 650 MG PO (05:50)
[2024-10-05 06:10] LABS: Basophils # (Auto) 0.1 Thou/mm3 (0.0-0.2); Basophils % (Auto) 1 % (0-2.5); Eosinophils # (Auto) 0.3 Thou/mm3 (0.0-0.5); Eosinophils % (Auto) 4 % (0-10); Hematocrit 32.6 % (36.0-46.0); Hemoglobin 10.9 g/dL (12.0-16.0); Immature Granulocytes % (Auto) 1 % (0-0); Immature Granulocytes Auto 0.04 Thou/mm3 (0.00-0.00); Lymphocytes # (Auto) 2.5 Thou/mm3 (1.0-4.8); Lymphocytes % (Auto) 33 % (10-50); Mean Corpuscular HGB Conc 33.4 g/dl (31.0-37.0); Mean Corpuscular Hemoglobin 28.4 pg (25.0-35.0); Mean Corpuscular Volume 85 fL (80-100); Monocytes # (Auto) 0.5 Thou/mm3 (0.0-0.8); Monocytes % (Auto) 7 % (0-12); Neutrophils # (Auto) 4.2 Thou/mm3 (1.8-7.7); Neutrophils % (Auto) 55 % (37-80); Nucleated Red Blood Cell % 0 /100 WBC (0); Platelet Count 304 Thou/mm3 (140-440); RDW Standard Deviation 42.1 fL (36.4-46.3); Red Blood Count 3.84 Miln/mm3 (4.00-5.20); White Blood Count 7.6 Thou/mm3 (3.6-11.0)
[2024-10-05 06:24] LABS: Anion Gap 9 (7-16); BUN/Creatinine Ratio 23 Ratio (12-20); Blood Urea Nitrogen 18 mg/dL (9-23); Calcium 8.8 mg/dL (8.3-10.6); Chloride 108 mMol/L (98-107); Creatinine (Component) 0.8 mg/dL (0.6-1.3); Glucose 103 mg/dL (74-106); Osmolality,Calculated 281 (275-295); Potassium 3.8 mMol/L (3.4-5.1); Sodium 140 mMol/L (136-145); eGFR > 60 See Note
[2024-10-05 07:02] VITALS: BP 125/86; PULSE 69; RESP 18; TEMP 36.9; O2SAT 97
[2024-10-05 07:46] VITALS: BP 125/86; PULSE 69; PULSE 76; RESP 18; TEMP 36.9; O2SAT 97
[2024-10-05] MEDS: metroNIDAZOLE/NS 500 MG IVPB 500 MG/100 ML BAG 200 MG IV (09:09)
[2024-10-05] MEDS: cefTRIAXone/D5w 1gm IV premix 1 GM/50 ML BAG IV (09:09)
[2024-10-05] MEDS: FLUoxetine HCL 10 MG CAPSULE 20 MG PO (09:17)
[2024-10-05] MEDS: PANTOPRAZOLE 40 MG TABLET PO (09:18)
[2024-10-05 10:05] VITALS: PULSE 70; RESP 16; RESP 95
[2024-10-05] MEDS: DOXYCYCLINE INJ 100 MG in SODIUM CHLORIDE 0.9% (POP) 100 ML IV (10:16)
[2024-10-05 11:05] VITALS: BP 125/85; PULSE 77; RESP 18; TEMP 36.6; O2SAT 96
--- NOTE | 2024-10-05 15:18 | PD.RESDS ---
Planned Discharge Date 10/05/24 DS: Providers Provider Date of admission: 10/03/24 01:03 Primary care physician: Physician No Primary/Family Admitting Provider: Sachin Felix MD Attending Provider on Admission: Keaton Oglesby MD Consults: 10/03/24 01:43 Consult to Gynecology Routine Comment: Consulting Provider: Cynthia Baker 10/03/24 10:59 Consult to General Surgery Routine Comment: Consulting Provider: Magnolia Storey 10/03/24 13:20 Consult to Gynecology Routine Comment: Vaginal discharge Consulting Provider: Fidelia Anand Attending Provider on DC: Marlo Morrissey MD Discharging Provider: Marlo Morrissey MD DS: Diagnosis Problem List Completed Was Problem List Reviewed/Reconciled?: Yes Hospital Course Hospital Course Hospital course: 49 yr female with PMH of cholecystectomy, diverticulitis, abdominal hysterectomy with salpingo-oophorectomy in August 2024, endometriosis spread to colon, lysis of adhesions, bowel repair, HLD, anxiety, and GERD who presented to the hospital with chief complaints of abdominal pain and vaginal discharge. Labs unremarkable. UA showed positive leukocyte esterase and [address] abdomen pelvis significant for acute sigmoid diverticulitis, small early peridiverticular abscess drain 10 x 4mm. But patient had CT abdomen/pelvis in 09/01/2024 that showed acute sigmoid diverticulitis, large pelvic peridiverticular abscess of 10 x 7.9 cm for which patient was admitted in the hospital and got hysterectomy with bilateral salpingo-oophorectomy, found to have endometriosis and underwent adhesiolysis by Dr. Storey and Dr. Fidelia Anand. Dr. Storey recommended outpatient follow-up in 2 weeks and to continue antibiotics and Dr. Fidelia Anand recommended to continue antibiotics and follow-up on next Wednesday at 2 PM in the clinic Patient discharged to home with the following medications and recommendations -Follow-up with Primary Care Physician within 1 week of discharge. -Recommended to continue Doxycycline 100mg p.o BID and Metronidazole 500mg p.o. TID for 12 days -Vaginal Clotrimazole cream local application -Continue rest of the home medications -Follow-up with Dr. Anand on Wednesday -Follow-up with Dr Storey within 2 weeks of discharge. -Return to the Emergency Department if symptoms persist or return # Vaginal discharge, unsure of the etiology - likely mild PID # S/p hysterectomy and bilateral salpingo-oophorectomy, endometriosis, complicated by abscess s/p drainage # History of migraine Patient plan of care was discussed with the attending physician, Dr. Oglesby and senior resident Dr. Deena Morrissey, PGY1 Time Spent with Patient Time attestation: Total time spent providing and/or coordinating discharge services: Time spent: Greater than 30 minutes Exam Vital Signs Temp Pulse Resp BP Pulse Ox O2 Del Method 97.9 F 77 18 125/85 H 96 Room Air 10/05/24 11:05 10/05/24 11:05 10/05/24 11:05 10/05/24 11:10/05/24 11:10/05/24 11:05 Narrative Exam General: Awake. Obese. Appears resting comfortably HEENT: Normocephalic, atraumatic, mucous membranes moist. Heart: Regular rate and rhythm, no murmurs. Lungs: Clear to auscultation with no wheezing or crackles. Abdomen: Soft, nondistended, mild tenderness in the hypogastric and right lower quadrant, positive bowel sounds. ?No guarding or rebound tenderness. Surgical incision noted Genitourinary: Noted yellowish discharge from the vagina, nonfoul-smelling, no erosions noted Neurologic: Alert and oriented x3, no gross neurological deficit, and patient able to move all 4 extremities. Extremities: No edema. Skin: No rash or ecchymoses. Discharge Plan Plan Patient Disposition: HOME (Self Care) Patient condition on transfer: Stable Care Plan Goals: -Follow-up with Primary Care Physician within 1 week of discharge. -Recommended to continue Doxycycline 100mg p.o BID and Metronidazole 500mg p.o. TID for 12 days -Vaginal Clotrimazole cream local application -Continue rest of the home medications -Follow-up with Dr. Anand on Wednesday -Follow-up with Dr Storey within 2 weeks of discharge. -Return to the Emergency Department if symptoms persist or return - Seguimiento con carson m?dico de atenci?n primaria dentro de la semana posterior al luz. - Se recomienda continuar con doxiciclina 100 mg por v?a oral dos veces al d?a y metronidazol 500 mg por v?a oral jorge alberto veces al d?a jason 12 d?as. - Aplicaci?n local de crema vaginal de clotrimazol. - Continuar con el wayne de la medicaci?n domiciliaria. - Seguimiento con el Dr. Anand el viernes. - Seguimiento con el Dr. Storey dentro de las 2 semanas posteriores al luz. - Regresar a Urgencias si los s?ntomas persisten o reaparecen. Prescriptions/Referrals Prescriptions/Med Rec: New doxycycline hyclate 100 mg tablet 100 mg PO BID 12 Days Qty: 24 0RF metronidazole 500 mg tablet 500 mg PO BID 12 Days Qty: 24 0RF clotrimazole 1 % cream 1 applic .Route BID 7 Days Qty: 45 0RF Rx Instructions: apply to vagina twice daily for 1 week Continued omeprazole 40 mg capsule,delayed release(DR/EC) 40 mg PO DAILY Patient Comments: take 1 capsule by mouth once daily BEFORE A MEAL fluoxetine 20 mg capsule 20 mg PO DAILY Patient Comments: take 1 capsule by mouth every morning acetaminophen [Acetaminophen Extra Strength] 500 mg tablet 1,000 mg PO Q6H PRN (Reason: pain) cholecalciferol (vitamin D3) [Vitamin D3] 50 mcg (2,000 unit) tablet 10,000 unit PO QWEEK atorvastatin 40 mg tablet 10 mg PO HS Patient Comments: take 1 tablet by mouth once daily Nurtec ODT 75 mg tablet,disintegrating Patient Comments: PLACE 1 TABLET BY TRANSLINGUAL ROUTE ON TOP OF THE TONGUE AND ALL... (REFER TO PRESCRIPTION NOTES). sumatriptan succinate [Imitrex] 50 mg tablet 50 mg PO DAILY PRN (Reason: migraine headache) Patient Comments: prescribed by md in [place] last hospitalization Rx Instructions: do not exceed 4 doses per 24 hrs Referrals: Fidelia Anand MD [Physician] - Magnolia Storey MD [Physician] - No Primary/Family,Physician [Primary Care Provider] - Patient/Caregiver Discharge Instructions Education Materials: After Abdominal Hysterectomy ..., When to Use Antibiotics Print Language: Portuguese Stand Alone Forms: Katherin Award Info., Patient Portal Info Letter Discharge Order Discharge Orders: Discharge (Routine); Ordered 10/05/24 Ordered By: Marlo Morrissey Quality Discharge Quality Measures VTE prophylaxis Attestestation Attestation Face to face evaluation was performed by me. I have personally seen and examined the patient. I discussed the assessment and plan with the entire medicine team. I reviewed available medical records, imaging studies, laboratory results. I agree with the above subjective data, objective findings, assessment and plan except as corrected by me or noted below PID, mild Sigmoid diverticulitis, Vaginal discharge -ANIMAL HUMANE AGENT SUPERVISOR saw the patient- exam done Abxs as ordered patient stable to be dced, received iv Rocephin- plan to dc on doxy + flagyl for 12 more days to complete 14 day course PCP and ANIMAL H[employer]ANE AGENT SUPERVISOR fu after dc More than > 30 minutes spent on the encounter
== END 2024-10-05 13:50 | disposition home or self-care (01) | DRG 244 ==
LOC: SERX 10-03 → SERHOLD 10-03 01:16 → S3SX 10-03 02:22
PROVIDERS: Nurse Practitioner Primary Care; Admitting Provider Student in an Organized Health Care Education/Training Program; Emergency Provider Emergency Medicine; Visit Provider Internal Medicine
DX: K57.20 Diverticulitis of large intestine with perforation and abscess without bleeding (principal); N89.8 Other specified noninflammatory disorders of vagina; N39.0 Urinary tract infection, site not specified; E78.5 Hyperlipidemia, unspecified; G43.909 Migraine, unspecified, not intractable, without status migrainosus; F41.9 Anxiety disorder, unspecified; N73.9 Female pelvic inflammatory disease, unspecified; K21.9 Gastro-esophageal reflux disease without esophagitis; Z90.710 Acquired absence of both cervix and uterus; Z90.49 Acquired absence of other specified parts of digestive tract
CPT/HCPCS: 36415; 74177; 80048; 80053; 80061; 81001; 81514; 83605; 83690; 83735; 84100; 84145; 84443; 85025; 87040; 87081; 87086; 96365; 96372; 96375; 99285; A4649; J0696; J2270; J2405; J2543; J3490; J7030; Q9967; A9270; J1836

== ENCOUNTER 2024-10-22 15:03 | Emergency (ER) | payer MEDICAID, SELFPAY ==
[2024-10-22 15:18] VITALS: BP 127/85; PULSE 106; RESP 18; TEMP 36.8; O2SAT 98; BMI 31.4
--- NOTE | 2024-10-22 15:35 | PD.EDRME ---
Rapid Medical Screening Exam RME Arrival date/time: 10/22/24 15:03 Chief Complaint: Abdominal Pain Time Seen by Provider: 10/22/24 15:06 Vital signs: Vital Signs Temperature 98.2 F 10/22/24 15:18 Pulse Rate 106 H 10/22/24 15:18 Respiratory Rate 18 10/22/24 15:18 Blood Pressure 127/85 H 10/22/24 15:18 Pulse Oximetry (%) 98 10/22/24 15:18 Oxygen Delivery Method Room Air 10/22/24 15:18 Vital signs reviewed by provider: Yes RME Narrative: 49-year-old female presents to the ED with an ongoing complaint of abdominal pain and fecal discharge from her vagina. She is status post complete hysterectomy on 08/24/2024. She has been seen here in our emergency department as well as [facility] x 2. 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 She has been given antibiotics as well as [place] but she is unable to tolerate the pain any longer. Her surgeon is aware of this complication and she is awaiting another surgery for repair.
[2024-10-22] MEDS: KETOROLAC INJ 60 MG/2 ML VIAL 30 MG IM (15:39)
[2024-10-22 16:17] LABS: Lactate (Lactic Acid) 1.6 mMol/L (0.4-2.0)
[2024-10-22 16:21] LABS: Basophils % (Auto) 1 % (0-2.5); Eosinophils # (Auto) 0.2 Thou/mm3 (0.0-0.5); Eosinophils % (Auto) 2 % (0-10); Hematocrit 36.4 % (36.0-46.0); Immature Granulocytes % (Auto) 1 % (0-0); Immature Granulocytes Auto 0.06 Thou/mm3 (0.00-0.00); Lymphocytes # (Auto) 2.4 Thou/mm3 (1.0-4.8); Lymphocytes % (Auto) 28 % (10-50); Mean Corpuscular Hemoglobin 27.9 pg (25.0-35.0); Mean Corpuscular Volume 85 fL (80-100); Monocytes # (Auto) 0.9 Thou/mm3 (0.0-0.8); Monocytes % (Auto) 10 % (0-12); Neutrophils # (Auto) 5.2 Thou/mm3 (1.8-7.7); Neutrophils % (Auto) 60 % (37-80); Nucleated Red Blood Cell % 0 /100 WBC (0); Platelet Count 395 Thou/mm3 (140-440); RDW Standard Deviation 41.3 fL (36.4-46.3); White Blood Count 8.7 Thou/mm3 (3.6-11.0)
[2024-10-22 16:23] LABS: Collection Type, Urine Clean Catch
[2024-10-22 16:44] LABS: Alanine Aminotransferase 50 U/L (10-49); Albumin, Serum 4.6 gm/dL (3.5-5.0); Albumin/Globulin Ratio 1.6 (1.2-2.2); Alkaline Phosphatase 97 U/L (46-116); Anion Gap 8 (7-16); Aspartate Amino Transferase 34 U/L (0-34); BUN/Creatinine Ratio 13 Ratio (12-20); Bilirubin,Total 0.3 mg/dL (0.3-1.2); Blood Urea Nitrogen 9 mg/dL (9-23); Calcium 9.3 mg/dL (8.3-10.6); Calcium (Corrected) 9.3 mg/dL (8.5-10.1); Carbon Dioxide 24.7 mMol/L (20.0-31.0); Chloride 106 mMol/L (98-107); Creatinine (Component) 0.7 mg/dL (0.6-1.3); Estimated Creatinine Clearance 102.4 mL/min (>60); Globulin 2.9 gm/dL (2.3-3.5); Glucose 100 mg/dL (74-106); Osmolality,Calculated 276 (275-295); Potassium 4.2 mMol/L (3.4-5.1); Sodium 139 mMol/L (136-145); Total Protein 7.5 gm/dL (5.7-8.2); eGFR > 60 See Note
[2024-10-22 16:45] LABS: Bacteria,Urine 1+; Bilirubin,Urine Negative (Negative); Blood,Urine 2+ (Negative); Color,Urine Lt-Yellow (Lt Yel-Yel); Glucose, Urine Negative (Negative); Ketones,Urine Negative (Negative); Leukocyte Esterase,Urine Positive (Negative); Nitrite,Urine Negative (Negative); PH,Urine 6.5 (5.0-7.0); Protein,Urine Negative (Neg - Trace); RBC,Urine 6 /hpf (0-3); Specific Gravity,Urine 1.005 (1.001-1.035); Squamous Epithelial Cell,Urine 2 /hpf (0-5); Urobilinogen,Urine Negative mg/dL (0.0-1.0); WBC,Urine 64 /hpf (0-5)
[2024-10-22 16:50] LABS: Clarity,Urine Hazy (Clear/Hazy)
--- NOTE | 2024-10-22 19:00 | XR_ITS ---
Examination: CT abdomen and pelvis without contrast. Coronal 3-D reconstructions. Sagittal 2-D reconstructions. Date and time of exam:October 05, 2024 1906 hrs. Indications: Lower abdominal pain beginning today comparison: October 02, 2024 Indications: Lower abdominal pain today, acute diverticulitis on CT abdomen pelvis October 02, 2024 CTDI: vol (mGy): 9.86 DLP: (mGycm): 572 Technique: Axial images of the abdomen have been obtained, 3 mm slice thickness Intravenous contrast material has not been administered. Low dose protocols were performed. One or more of the following dose reduction techniques were used; automated exposure control, adjustment of the mA and/or KV according to patient size, use of iterative reconstruction technique. Findings: No focal liver or splenic lesions Absent gallbladder No pancreatic or adrenal mass No renal or ureteral calculi, no hydronephrosis Para-aortic and common iliac lymph nodes, the largest 12 mm No pericecal inflammatory change Acute sigmoid diverticulitis Suspicious for very early abscess, 29 x 6 mm Contracted urinary bladder Impression: Acute sigmoid diverticulitis Suspicious for very early peridiverticular abscess 29 x 6 mm, this is [address]-guided catheter drainage at this time, recommend follow-up
--- NOTE | 2024-10-22 19:00 | PD.EDFMALE ---
ED Female Urogenital RME/HPI General Chief complaint: Abdominal Pain Stated complaint: ABD PAIN X 3 DAYS Time Seen by Provider: 10/22/24 15:06 Arrival date/time: 10/22/24 15:03 RME / HPI RME / HPI Narrative: 49-year-old female presents to the ED with an ongoing complaint of abdominal pain and fecal discharge from her vagina. She is status post complete hysterectomy on 08/24/2024. She has been seen here in our emergency department as well as [facility] x 2. 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 She has been given antibiotics as well as [place] but she is unable to tolerate the pain any longer. Her surgeon is aware of this complication and she is awaiting another surgery for repair. This section includes all my notes and documentations, including HPI, PE, and ED course. Arturo Bernal MD HPI: 49 y/o female with SHx of and Hysterectomy and Hx of migraine, Hypercholesterolemia, Diverticulitis, Gastroesophageal Reflux Disease, Obesity, Anxiety presents to ED c/o lower abdominal pain and fecal matter passing through the vagina x couple of months, worse in the last few days. No other complaints. ROS: All negative except as documented in HPI. Physical Exam: General: Alert and oriented. No acute distress when remaining still. Eyes: Conjunctivae and lids clear. ENT: No nasal congestion. Neck: Supple. Lungs: No respiratory distress. Abdomen: Soft and nontender. Normal bowel sounds. No distension. No rebound or guarding. Back: No CVA tenderness. Skin: Warm and dry. Neuro: Alert and oriented X 3. I reviewed all diagnostic test results. My review of the CT report is Acute sigmoid diverticulitis. Suspicious for very early peridiverticular abscess 29 x 6 mm, this is [address]-guided catheter drainage at this time, recommend follow-up. Blood tests and urine tests remarkable for UTI. At this point, diagnoses include UTI, Diverticulitis. Treatment here included Zofran, Toradol, Hydrocodone Bitartrate/Tylenol. Significant improvement noted. Recommended outpatient treatment. Based on my best medical judgment, made decision no further evaluation or treatment indicated at this time. Patient understands and agrees to the discharge instructions customized and printed, see below. Discharge instructions from Dr. Bernal: 1. After evaluation, your symptoms are due to diverticulitis.? A bulge or pocket (called) diverticula lining the intestine is inflamed and infected. You also have urinary tract infection. See attached handouts. Your vaginal - rectal fistula is too small to be seen on the CT scan. 2. Take Cipro and Flagyl for the infections. 3. Zofran for nausea/vomiting. 4. [place] for severe pain. 5. Clear liquid diet for 24 hours then advance as tolerated. 6. To prevent dehydration, increase oral fluid and maintain clear urine.? If dark or yellow, increase oral fluid. 7. See a private doctor on 10/23/24 for recheck. Ask for help seeing a surgeon to fix your vaginal - rectal fistula before it causes emergency. Ask to help you get more care not available here in the ER.? Such as EGD or scoping of your stomach, colonoscopy or scoping the colon, and a referral to see a head of global strategic partnerships. Ask for help until you are completely better. Ask to review all test results and official radiology reports, to make sure you receive all necessary follow-ups and monitoring. 8. Seek immediate medical care with worsening, fever, or with any concerns. Arturo Bernal MD Related Data Home Medications ?Medication ?Instructions ?Recorded ?Confirmed acetaminophen 500 mg tablet 1,000 mg PO Q6H PRN pain 08/23/24 10/04/24 (Acetaminophen Extra Strength) atorvastatin 40 mg tablet 10 mg PO HS 08/23/24 10/04/24 cholecalciferol (vitamin D3) 50 10,000 unit PO QWEEK 08/23/24 10/04/24 mcg (2,000 unit) tablet (Vitamin D3) fluoxetine 20 mg capsule 20 mg PO DAILY 08/23/24 10/04/24 omeprazole 40 mg capsule,delayed 40 mg PO DAILY 08/23/24 10/04/24 release rimegepant 75 mg disintegrating mg 08/26/24 tablet (Nurtec ODT) sumatriptan succinate 50 mg tablet 50 mg PO DAILY PRN migraine 10/04/24 10/04/24 (Imitrex) headache Previous Rx's ?Medication ?Instructions ?Recorded ciprofloxacin HCl 500 mg tablet 500 mg PO BID #20 tabs 10/22/24 (Cipro) hydrocodone 10 mg-acetaminophen 1 tab PO Q6H PRN pain #20 tabs 10/22/24 325 mg tablet metronidazole 500 mg tablet 500 mg PO BID 10 days #20 tabs 10/22/24 ondansetron 4 mg disintegrating 4 mg PO TID PRN nausea and 10/22/24 tablet vomiting 30 days #10 tabs Allergies Allergy/AdvReac Type Severity Reaction Status Date / Time No Known Allergies Allergy Verified 10/22/24 15:07 Review of Systems Review of Systems Systems Reviewed: All systems reviewed, normal except as documented Narrative Review of Systems: Refer to HPI above. Past Medical History Past Medical History NEUROLOGIC: Positive Neurological Disorders and Migraine CARDIAC: Positive Cardiac Disorders and Hypercholesterolemia GASTROINTESTINAL: Positive Gastrointestinal Disorders, Diverticulitis, Gastroesophageal Reflux Disease and Obesity REPRODUCTIVE: Positive Previous Pregnancies MUSCULOSKELETAL: Positive Musculoskeletal Disorders PSYCHO/SOCIAL: Positive Anxiety OTHER HISTORY: Positive Hospitalization Family History FAMILY HISTORY: Positive Family Cardiac Disorders Surgical History SURGICAL: Positive Abdominal Surgery, Hysterectomy and Section ED Exam Narrative Physical exam: Refer to HPI above. Course Quality Measures none Orders Category Date Time Status NPO STAT Care 10/22/24 15:[address] abdomen pelvis wo con Stat Exams 10/22/24 19:00 Completed Blood Culture (Lab) Stat Lab 10/22/24 15:55 Received CBC Stat Lab 10/22/24 15:55 Completed Comprehensive Metabolic Panel Stat Lab 10/22/24 15:55 Completed Lactate (Lactic Acid) Stat Lab 10/22/24 15:55 Completed Urinalysis Stat Lab 10/22/24 15:59 Completed Urine Culture Stat Lab 10/22/24 15:59 Received HYDROcodone/APAP 10/325 [[place] 10/325] Med 10/22/24 19:00 Discontinued 2 tab PO X1 ONE Ketorolac Inj [Toradol Inj] Med 10/22/24 15:34 Discontinued 30 mg IM X1 ONE Ondansetron Odt [Zofran Odt] Med 10/22/24 19:00 Discontinued 4 mg PO X1 ONE Vital Signs Vital signs: Vital Signs Temperature 98.2 F 10/22/24 15:18 Pulse Rate 106 H 10/22/24 15:18 Respiratory Rate 18 10/22/24 15:18 Blood Pressure 127/85 H 10/22/24 15:18 Pulse Oximetry (%) 98 10/22/24 15:18 Oxygen Delivery Method Room Air 10/22/24 15:18 Urogenital - Female MDM Narrative MDM Narrative:: Scribe Attestation: Shiela Harper, am scribing for and in the presence of Dr. Bernal. Provider Notation: Although this document has been carefully reviewed, there may still be some phonetic and other typographical errors. These errors are purely grammatical due to imperfections in the software program and should not be construed in any way to compromise the substance of the patient's medical care during this visit. 49 y/o female with SHx of Abdominal, , and Hysterectomy and Hx of migraine, Hypercholesterolemia, Diverticulitis, Gastroesophageal Reflux Disease, Obesity, Anxiety presents to ED c/o lower abdominal pain and fecal matter passing through the urethra x couple of months, worse in the last few days. No other complaints. Patient data External records reviewed:: [facility] previous records (Reviewed prior ED records from 10/02/24. Patient was seen for Diverticulitis.) Clinical information provided by:: patient Social determinants that could affect healthcare access:: none Patient has the following chronic illnesses:: SHx of and Hysterectomy and Hx of migraine, Hypercholesterolemia, Diverticulitis, Gastroesophageal Reflux Disease, Obesity, Anxiety How is presenting disease/condition affected by chronic disease/condition?: exacerbated by Evaluation data The following diagnostics were reviewed and interpreted by me:: lab results and radiology exam(s) Lab and/or radiology exams considered but not ordered:: None Interpretation Summary: UTI, Diverticulitis. Medications / Prescriptions Medications or Prescriptions considered but not ordered:: None Medication administrations:: Medication Administration History Discontinued Medications Hydrocodone Bitart/Acetaminophen (Hydrocodone/Apap 10/325 Tab) 2 tab PO X1 ONE Stop: 10/22/24 19:01 Last Admin: 10/22/24 19:49 Dose: 2 tab Documented By: DREW Ketorolac Tromethamine (Ketorolac Inj 60 Mg/2 Ml Vial) 30 mg IM X1 ONE Stop: 10/22/24 15:35 Last Admin: 10/22/24 15:39 Dose: 30 mg Documented By: DENNY Ondansetron HCl (Ondansetron Odt 4 Mg Tabrap) 4 mg PO X1 ONE; Protocol Stop: 10/22/24 19:01 Last Admin: 10/22/24 19:49 Dose: 4 mg Documented By: CVL Toradol, Zofran, Hydrocodone Bitartrate/Tylenol Consultations Consultation(s) initiated? (list below): No Diagnosis Urogenital Female Differential Diagnosis: urinary tract infection, cervicitis, vaginitis, cystitis and other (UTI) Most likely diagnosis given after review of the tests above:: UTI, Diverticulitis. Admission Indicated Admission indicated?: not indicated Explain why admission is indicated or not indicated:: Does not meet admission criteria. Admission Request Was there a request for admission?: No Disposition Plan Disposition Plan: Discharge Discharge Attestation Discharge Attestation: The patient and all family members were given an opportunity to ask questions and understood the discharge instructions. Discharge instructions specifically effects, indications for sooner follow up or return to the emergency department, and the expected course of current diagnosis. Patient condition: Stable Discharge Plan Plan Patient Disposition: HOME (Self Care) Prescriptions/Referrals Prescriptions/Med Rec: New metronidazole 500 mg tablet 500 mg PO BID 10 Days Qty: 20 0RF ciprofloxacin HCl [Cipro] 500 mg tablet 500 mg PO BID Qty: 20 0RF ondansetron 4 mg tablet,disintegrating 4 mg PO TID PRN (Reason: nausea and vomiting) 30 Days Qty: 10 0RF hydrocodone-acetaminophen 10-325 mg tablet 1 tab PO Q6H MDD 4 PRN (Reason: pain) Qty: 20 0RF No Action omeprazole 40 mg capsule,delayed release(DR/EC) 40 mg PO DAILY Patient Comments: take 1 capsule by mouth once daily BEFORE A MEAL fluoxetine 20 mg capsule 20 mg PO DAILY Patient Comments: take 1 capsule by mouth every morning acetaminophen [Acetaminophen Extra Strength] 500 mg tablet 1,000 mg PO Q6H PRN (Reason: pain) cholecalciferol (vitamin D3) [Vitamin D3] 50 mcg (2,000 unit) tablet 10,000 unit PO QWEEK atorvastatin 40 mg tablet 10 mg PO HS Patient Comments: take 1 tablet by mouth once daily Nurtec ODT 75 mg tablet,disintegrating Patient Comments: PLACE 1 TABLET BY TRANSLINGUAL ROUTE ON TOP OF THE TONGUE AND ALL... (REFER TO PRESCRIPTION NOTES). sumatriptan succinate [Imitrex] 50 mg tablet 50 mg PO DAILY PRN (Reason: migraine headache) Patient Comments: prescribed by in [place] last hospitalization Rx Instructions: do not exceed 4 doses per 24 hrs Referrals: No Primary/Family,Physician [Primary Care Provider] - In 1 week Problem List Clinical Impression: UTI (urinary tract infection), Diverticulitis Patient/Caregiver Discharge Instructions Discharge Activity: activity as tolerated Education Materials: ED Diverticulitis, ED CYSTITIS Female Adult Additional Instructions: Discharge instructions from Dr. Bernal: 1. After evaluation, your symptoms are due to diverticulitis.? A bulge or pocket (called) diverticula lining the intestine is inflamed and infected. You also have urinary tract infection. See attached handouts. Your vaginal - rectal fistula is too small to be seen on the CT scan. 2. Take Cipro and Flagyl for the infections. 3. Zofran for nausea/vomiting. 4. [place] for severe pain. 5. Clear liquid diet for 24 hours then advance as tolerated. 6. To prevent dehydration, increase oral fluid and maintain clear urine.? If dark or yellow, increase oral fluid. 7. See a private doctor on 10/23/24 for recheck. Ask for help seeing a surgeon to fix your vaginal - rectal fistula before it causes emergency. Ask to help you get more care not available here in the ER.? Such as EGD or scoping of your stomach, colonoscopy or scoping the colon, and a referral to see a head of global strategic partnerships. Ask for help until you are completely better. Ask to review all test results and official radiology reports, to make sure you receive all necessary follow-ups and monitoring. 8. Seek immediate medical care with worsening, fever, or with any concerns. Instrucciones de luz del Dr. Bernal: 1. Despu?s de la evaluaci?n, kamala s?ntomas se deben a diverticulitis. Un bulto o bolsa (llamado divert?culo) que recubre el intestino est? inflamado e infectado. Tambi?n tiene reji infecci?n del tracto urinario. Consulte los folletos adjuntos. [place] f?stula vaginal-rectal es demasiado deedee?a para ser visible en la tomograf?a computarizada. 2. [place] Cipro y Flagyl para las infecciones. 3. Zofran para las n?useas y los v?mitos. 4. [place] para el dolor intenso. 5. Dieta l?quida jason 24 horas y luego aumente seg?n la tolerancia. 6. Para prevenir la deshidrataci?n, aumente la ingesta de l?quidos por v?a oral y mantenga la orina tomasa. Si la orina es oscura o amarilla, aumente la ingesta de l?quidos por v?a oral. 7. Consulte con un m?dico particular el 23/10/24 para reji nueva revisi?n. [place] ayuda para consultar con un cirujano para reparar [place] f?stula vaginal-rectal antes de que cause reji emergencia. [place] ayuda para obtener m?s atenci?n que no est? disponible aqu? en la caty de emergencias. Pat reji endoscopia estomacal (EGD), reji colonoscopia o reji endoscopia de colon, y reji derivaci?n a un gastroenter?logo. [place] ayuda hasta que se recupere por completo. [place] la revisi?n de todos los resultados de las pruebas y los informes radiol?gicos oficiales para asegurarse de recibir todos los seguimientos y la monitorizaci?n necesarios. 8. Busque atenci?n m?dica inmediata si presenta empeoramiento, fiebre o cualquier inquietud. Print Language: Samoan Stand Alone Forms: Katherin Award Info., Patient Portal Info Letter
[2024-10-22] MEDS: HYDROcodone/APAP 10/325 TAB PO (19:49)
[2024-10-22] MEDS: ONDANSETRON ODT 4 MG TABRAP PO (19:49)
[2024-10-22 20:22] VITALS: BP 129/85; PULSE 83; RESP 18; O2SAT 98
== END 2024-10-22 20:28 | disposition home or self-care (01) ==
PROVIDERS: Physician Assistant; Emergency Provider Emergency Medicine
DX: N39.0 Urinary tract infection, site not specified (principal); K57.32 Diverticulitis of large intestine without perforation or abscess without bleeding; E78.00 Pure hypercholesterolemia, unspecified; K21.9 Gastro-esophageal reflux disease without esophagitis; F41.9 Anxiety disorder, unspecified; E66.9 Obesity, unspecified; Z68.31 Body mass index [BMI] 31.0-31.9, adult
CPT/HCPCS: 36415; 74176; 80053; 81001; 83605; 85025; 87040; 87077; 87086; 87186; 96372; 99284; J1885; Q0162; A9270

== ENCOUNTER 2024-11-29 15:35 | Inpatient (IN) | payer MEDICAID, SELFPAY ==
[2024-11-29 15:48] VITALS: BP 131/88; PULSE 97; RESP 18; TEMP 37; O2SAT 97
--- NOTE | 2024-11-29 15:58 | XR_ITS ---
Examination: CT abdomen with intravenous contrast CT pelvis with intravenous contrast 2-D coronal reconstructions 2-D sagittal reconstructions Date and time of exam:November 29, 2024 1940 hours Comparison October 22, 2024 INDICATIONS: Status post hysterectomy one month ago followed by lower abdominal pain. CTDI: vol (mGy) 21.3 DLP: (mGycm) 711 Technique: Multiple axial sections of the abdomen and pelvis have been obtained. 64 slice high-resolution scanner used. 3 mm axial sections have been obtained, post intravenous injection 60 cc [id number] 2-D sagittal, coronal reconstructions obtained. Low dose protocols were performed. One or more of the following dose reduction techniques were used; automated exposure control, adjustment of the mA and/or KV according to patient size, use of iterative reconstruction technique. Findings: No focal liver or splenic lesions Absent gallbladder No pancreatic mass No renal or ureteral calculi, no hydronephrosis Normal appendix No bowel obstruction 18 mm fat-containing abdominal hernia Colonic diverticulosis Acute sigmoid diverticulitis Suspicious for very early peridiverticular phlegmonous mass axial image 191, measuring 30 mm Air droplet in the urinary bladder, clinical correlation advised This air droplet may relate to early fistulous communication between the diverticular disease and the bladder Minimal urinary bladder wall thickening Moderate disc narrowing L5-S1 IMPRESSION: Acute sigmoid diverticulitis Suspicious for very early peridiverticular phlegmonous mass measuring 30 mm, this is not fluid filled and amenable at this time for catheter drainage Air droplet in the urinary bladder, suspicious for fistulous communication between the sigmoid colon and the bladder
--- NOTE | 2024-11-29 15:59 | PD.EDRME ---
Rapid Medical Screening Exam E Arrival date/time: 11/29/24 15:35 49-year-old female with a history of hyperlipidemia, presents to the emergency room with a chief complaint of right lower abdominal pain. Patient states all of this pain happened after a bowel perforation during a hysterectomy. I have greeted and performed a focused initial assessment of this patient. A comprehensive ED assessment and evaluation of the patient, analysis of all test results, and completion of the medical decision making process will be conducted by additional ED providers. Chief Complaint: Abdominal Pain Time Seen by Provider: 11/29/24 15:54 Vital signs: Vital Signs Temperature 98.6 F 11/29/24 15:48 Pulse Rate 97 11/29/24 15:48 Respiratory Rate 18 11/29/24 15:48 Blood Pressure 131/88 H 11/29/24 15:48 Pulse Oximetry (%) 97 11/29/24 15:48 Oxygen Delivery Method Room Air 11/29/24 15:48 Vital signs reviewed by provider: Yes
[2024-11-29 16:20] LABS: Basophils # (Auto) 0.1 Thou/mm3 (0.0-0.2); Basophils % (Auto) 1 % (0-2.5); Eosinophils # (Auto) 0.2 Thou/mm3 (0.0-0.5); Eosinophils % (Auto) 2 % (0-10); Hematocrit 37.1 % (36.0-46.0); Hemoglobin 12.5 g/dL (12.0-16.0); Immature Granulocytes % (Auto) 0 % (0-0); Immature Granulocytes Auto 0.05 Thou/mm3 (0.00-0.00); Lymphocytes # (Auto) 3.4 Thou/mm3 (1.0-4.8); Lymphocytes % (Auto) 30 % (10-50); Mean Corpuscular HGB Conc 33.7 g/dl (31.0-37.0); Mean Corpuscular Hemoglobin 28.2 pg (25.0-35.0); Mean Corpuscular Volume 84 fL (80-100); Monocytes # (Auto) 0.7 Thou/mm3 (0.0-0.8); Monocytes % (Auto) 7 % (0-12); Neutrophils # (Auto) 6.9 Thou/mm3 (1.8-7.7); Neutrophils % (Auto) 61 % (37-80); Nucleated Red Blood Cell % 0 /100 WBC (0); Platelet Count 397 Thou/mm3 (140-440); RDW Standard Deviation 42.3 fL (36.4-46.3); Red Blood Count 4.44 Miln/mm3 (4.00-5.20); White Blood Count 11.4 Thou/mm3 (3.6-11.0)
[2024-11-29 16:47] LABS: Alanine Aminotransferase 31 U/L (10-49); Albumin, Serum 4.3 gm/dL (3.5-5.0); Albumin/Globulin Ratio 1.6 (1.2-2.2); Alkaline Phosphatase 86 U/L (46-116); Anion Gap 11 (7-16); Aspartate Amino Transferase 23 U/L (0-34); BUN/Creatinine Ratio 13 Ratio (12-20); Bilirubin,Total 0.3 mg/dL (0.3-1.2); Blood Urea Nitrogen 9 mg/dL (9-23); Calcium 8.7 mg/dL (8.3-10.6); Calcium (Corrected) 8.7 mg/dL (8.5-10.1); Carbon Dioxide 24.2 mMol/L (20.0-31.0); Chloride 105 mMol/L (98-107); Creatinine (Component) 0.7 mg/dL (0.6-1.3); Globulin 2.7 gm/dL (2.3-3.5); Glucose 103 mg/dL (74-106); Lipase 42 U/L (12-53); Osmolality,Calculated 278 (275-295); Potassium 3.7 mMol/L (3.4-5.1); Sodium 140 mMol/L (136-145); eGFR > 60 See Note
[2024-11-29 18:57] LABS: Collection Type, Urine Clean Catch
[2024-11-29 19:10] LABS: Bacteria,Urine 2+; Bilirubin,Urine Negative (Negative); Blood,Urine 2+ (Negative); Color,Urine Yellow (Lt Yel-Yel); Glucose, Urine Negative (Negative); Ketones,Urine Negative (Negative); Leukocyte Esterase,Urine Positive (Negative); Nitrite,Urine Negative (Negative); Protein,Urine 1+ (Neg - Trace); RBC,Urine 110 /hpf (0-3); Specific Gravity,Urine 1.022 (1.001-1.035); Squamous Epithelial Cell,Urine 1 /hpf (0-5); Urobilinogen,Urine Negative mg/dL (0.0-1.0); WBC,Urine 1864 /hpf (0-5)
[2024-11-29 19:12] LABS: Clarity,Urine Turbid (Clear/Hazy); HCG Qualitative,Urine Negative
--- NOTE | 2024-11-29 21:25 | PD.EDABDPN ---
ED Abdominal Pain RME/HPI General Chief Complaint: Abdominal Pain Stated complaint: DAVY SENT FOR ADMISSION & COLON REPAIR SURGERY Time seen by provider: 11/29/24 15:54 Arrival date/time: 11/29/24 15:35 RME / HPI RME / HPI narrative: 11/29/24 15:35 49-year-old female with a history of hyperlipidemia, presents to the emergency room with a chief complaint of right lower abdominal pain. Patient states all of this pain happened after a bowel perforation during a hysterectomy. I have greeted and performed a focused initial assessment of this patient. A comprehensive ED assessment and evaluation of the patient, analysis of all test results, and completion of the medical decision making process will be conducted by additional ED providers. This section includes all my notes and documentations, including HPI, PE, and ED course. Arturo Bernal MD HPI: 49 y/o female with lower abdominal pain and vomiting x several months. Had FAMILIA/BSO here in 08/29, needed bowel repair. Developed complications, including abscess, treated in [place]. She has known Dr. Geremias Melchor has been treating her. Haa known colo-vesical fistula. Sent here to be admitted for further care, including surgery. No other complaints. ROS: All negative except as documented in HPI. Physical Exam: General: Alert and oriented. Appears uncomfortable. Eyes: Conjunctivae and lids clear. ENT: No nasal congestion. Neck: Supple. Heart: RRR. Lungs: No respiratory distress. Good air movement. No rhonchi, wheezing, rales. Abdomen: Soft with diffuse tenderness, difficult to localize normal bowel sounds. No distension. No rebound or guarding. Back: No CVA tenderness. Skin: Warm and dry. Neuro: Alert and oriented X 3. I reviewed all diagnostic test results. My review of the CT report is: Acute sigmoid diverticulitis. Suspicious for very early peridiverticular phlegmonous mass measuring 30 mm, this is not fluid filled and amenable at this time for catheter drainage. Air droplet in the urinary bladder, suspicious for fistulous communicatio between the sigmoid colon and the bladder. Blood tests remarkable for WBC 11.4. UA showed positive leukocyte Estrace, 110 RBC, 1864 WBC, and 3+ bacteria. At this point, diagnoses include Diverticulitis of intestine with abscess, UTI (urinary tract infection), [place]-vesical fistula I discussed the case with Dr. Melchor and our hospitalist, about the presentation and exam and diagnostics and treatments here. And need of further care in the hospital. Will accept the patient. Arturo Bernal MD Related Data Home Medications ?Medication ?Instructions ?Recorded ?Confirmed acetaminophen 500 mg tablet 1,000 mg PO Q6H PRN pain 08/23/24 10/04/24 (Acetaminophen Extra Strength) atorvastatin 40 mg tablet 10 mg PO HS 08/23/24 10/04/24 cholecalciferol (vitamin D3) 50 10,000 unit PO QWEEK 08/23/24 10/04/24 mcg (2,000 unit) tablet (Vitamin D3) fluoxetine 20 mg capsule 20 mg PO DAILY 08/23/24 10/04/24 omeprazole 40 mg capsule,delayed 40 mg PO DAILY 08/23/24 10/04/24 release rimegepant 75 mg disintegrating mg 08/26/24 tablet (Nurtec ODT) sumatriptan succinate 50 mg tablet 50 mg PO DAILY PRN migraine 10/04/24 10/04/24 (Imitrex) headache Previous Rx's ?Medication ?Instructions ?Recorded ciprofloxacin HCl 500 mg tablet 500 mg PO BID #20 tabs 10/22/24 (Cipro) hydrocodone 10 mg-acetaminophen 1 tab PO Q6H PRN pain #20 tabs 10/22/24 325 mg tablet Allergies Allergy/AdvReac Type Severity Reaction Status Date / Time No Known Allergies Allergy Verified 11/29/24 15:42 Review of Systems Review of Systems Systems Reviewed: All systems reviewed, normal except as documented Past Medical History Past Medical History NEUROLOGIC: Positive Neurological Disorders and Migraine CARDIAC: Positive Hypercholesterolemia GASTROINTESTINAL: Positive Gastrointestinal Disorders, Diverticulitis, Gastroesophageal Reflux Disease and Obesity REPRODUCTIVE: Positive Previous Pregnancies MUSCULOSKELETAL: Positive Musculoskeletal Disorders PSYCHO/SOCIAL: Positive Anxiety OTHER HISTORY: Positive Hospitalization Family History FAMILY HISTORY: Positive Family Cardiac Disorders and Family Surgery Surgical History SURGICAL: Positive Abdominal Surgery, Hysterectomy and Section ED Exam Narrative Physical exam: Refer to HPI Course Quality Measures none Orders Category Date Time Status COVID-19 Screening Questionnaire NOW Care 11/29/24 21:[address] Screening NOW Care 11/29/24 15:59 Active Decision to Admit X1 Care 11/29/24 21:35 Active Saline [Insert IV] NOW Care 11/29/24 21:34 Active Consult to General Surgery Stat Cons 11/29/24 21:[address] abdomen pelvis w con Stat Exams 11/29/24 15:58 Completed Blood Culture (Lab) Stat Lab 11/29/24 21:45 Ordered CBC Stat Lab 11/29/24 16:03 Completed CMP [Comprehensive Metabolic Panel] Stat Lab 11/29/24 16:03 Completed CRP [C-Reactive Protein] Stat Lab 11/29/24 21:45 Ordered ESR [Sed Rate (ESR)] Stat Lab 11/29/24 21:45 Ordered HCG Qualitative,Urine Stat Lab 11/29/24 18:48 Completed Lactate (Lactic Acid) Stat Lab 11/29/24 21:45 Ordered Lipase Stat Lab 11/29/24 16:03 Completed Magnesium Stat Lab 11/29/24 21:45 Ordered Procalcitonin Stat Lab 11/29/24 21:45 Ordered UA [Urinalysis] Stat Lab 11/29/24 18:48 Completed Urine Culture Stat Lab 11/29/24 18:48 Received CIPROFLOXACIN/D5w 400 MG IVPB [Cipro Ivpb] Med 11/29/24 21:35 Ordered 400 mg in 200 ml IV Q12HR Ketorolac Inj [Toradol Inj] Med 11/29/24 21:34 Discontinued 30 mg IVP X1 ONE Morphine Inj Med 11/29/24 21:34 Discontinued 4 mg IVP X1 ONE Ondansetron Inj [Zofran Inj] Med 11/29/24 21:34 Once 4 mg IVP X1 ONE Sodium Chloride 0.9% 1000 ml [Ns] 1,000 ml Med 11/29/24 21:34 Active IV 999 mls/hr metroNIDAZOLE/NS 500 MG IVPB [Flagyl 500 mg IV] Med 11/29/24 21:35 Ordered 500 mg in 100 ml IV Q8HR Vital Signs Vital signs: Vital Signs Temperature 98.6 F 11/29/24 15:48 Pulse Rate 97 11/29/24 15:48 Respiratory Rate 18 11/29/24 15:48 Blood Pressure 131/88 H 11/29/24 15:48 Pulse Oximetry (%) 97 11/29/24 15:48 Oxygen Delivery Method Room Air 11/29/24 15:48 Abdominal Pain MDM MDM Narrative MDM Narrative:: Scribe Attestation: I, Shiela Ruggiero, am scribing for and in the presence of Dr. Bernal. Provider Notation: Although this document has been carefully reviewed, there may still be some phonetic and other typographical errors.? These errors are purely grammatical due to imperfections in the software program and should not be construed in any way to? compromise the substance of the patient's medical care during this visit. 49 y/o female with Hx Diverticulitis and SHx of Hysterectomy presents to ED c/o lower abdominal pain and vomiting x several months. No other complaints. Patient data External records reviewed:: [facility] previous records (Reviewed prior ED records from 10/22/24. Patient was seen for Diverticulitis.) Clinical information provided by:: patient Social determinants that could affect healthcare access:: none Patient has the following chronic illnesses:: Migraine, Hypercholesterolemia, Diverticulitis, Gastroesophageal Reflux Disease, Obesity, Anxiety How is presenting disease/condition affected by chronic disease/condition?: exacerbated by Evaluation data The following diagnostics were reviewed and interpreted by me:: lab results and radiology exam(s) Lab and/or radiology exams considered but not ordered:: None Interpretation Summary: I reviewed all diagnostic test results. My review of the CT report is: Acute sigmoid diverticulitis. Suspicious for very early peridiverticular phlegmonous mass measuring 30 mm, this is not fluid filled and amenable at this time for catheter drainage. Air droplet in the urinary bladder, suspicious for fistulous communicatio between the sigmoid colon and the bladder. Blood tests remarkable for WBC 11.4. UA showed positive leukocyte Estrace, 110 RBC, 1864 WBC, and 3+ bacteria. Medications / Prescriptions Medications or Prescriptions considered but not ordered:: None Medication administrations:: Medication Administration History Sodium Chloride (Ns) 1,000 mls @ 999 mls/hr IV .Q1H1M ONE Stop: 11/29/24 22:34 Ciprofloxacin/Dextrose (Cipro Ivpb) 400 mg in 200 mls @ 200 mls/hr IV Q12HR DANIEL Stop: 12/06/24 21:34 Metronidazole (Flagyl 500 Mg Iv) 500 mg in 100 mls @ 200 mls/hr IV Q8HR DANIEL Stop: 12/06/24 21:34 Discontinued Medications Ketorolac Tromethamine (Ketorolac Inj 30 Mg/Ml Vial) 30 mg IVP X1 ONE Stop: 11/29/24 21:35 Morphine Sulfate (Morphine Sulf Inj 10 Mg/Ml Vial) 4 mg IVP X1 ONE Stop: 11/29/24 21:35 Ondansetron HCl (Ondansetron Inj 2 Mg/Ml Inj 2 Ml) 4 mg IVP X1 ONE; Protocol Stop: 11/29/24 21:35 I ordered IV fluid, Zofran, Toradol, morphine, Cipro, and Flagyl. Consultations Consultation(s) initiated? (list below): No Consultation #1 (Physician, Specialty, Details): I discussed the case with our surgeon, Dr. Melchor, about the presentation and exam and diagnostics and treatments here. And need of further care in the hospital. Will accept the patient. Time: 21:30 Diagnosis Differential diagnosis abdominal pain: abdominal pain, acute appendicitis, calculus of kidney, constipation, diverticulitis, endometriosis, gastroenteritis, pancreatitis and small bowel obstruction (UTI, Sepsis) Most likely diagnosis given after review of the tests above:: Diverticulitis of intestine with abscess, UTI (urinary tract infection), [place]-vesical fistula Admission Indicated Admission indicated?: indicated Explain why admission is indicated or not indicated:: UTI, Bladder Fistula, Diverticular Abscess Admission Request Was there a request for admission?: Yes Admission Attestation Admission request attestation: Discussed case with Hospitalist service regarding admission. Discussed patients ED course, exam findings, labs, and radiology results. The Hospitalist [agrees] to accept the patient for admission. Disposition Plan Disposition Plan: Admit Discharge Plan Plan Patient Disposition: Admit Acute Care w/in Hospital Prescriptions/Referrals Prescriptions/Med Rec: No Action ciprofloxacin HCl [Cipro] 500 mg tablet 500 mg PO BID Qty: 20 0RF hydrocodone-acetaminophen 10-325 mg tablet 1 tab PO Q6H MDD 4 PRN (Reason: pain) Qty: 20 0RF omeprazole 40 mg capsule,delayed release(DR/EC) 40 mg PO DAILY Patient Comments: take 1 capsule by mouth once daily BEFORE A MEAL fluoxetine 20 mg capsule 20 mg PO DAILY Patient Comments: take 1 capsule by mouth every morning acetaminophen [Acetaminophen Extra Strength] 500 mg tablet 1,000 mg PO Q6H PRN (Reason: pain) cholecalciferol (vitamin D3) [Vitamin D3] 50 mcg (2,000 unit) tablet 10,000 unit PO QWEEK atorvastatin 40 mg tablet 10 mg PO HS Patient Comments: take 1 tablet by mouth once daily Nurtec ODT 75 mg tablet,disintegrating Patient Comments: PLACE 1 TABLET BY TRANSLINGUAL ROUTE ON TOP OF THE TONGUE AND ALL... (REFER TO PRESCRIPTION NOTES). sumatriptan succinate [Imitrex] 50 mg tablet 50 mg PO DAILY PRN (Reason: migraine headache) Patient Comments: prescribed by md in [place] last hospitalization Rx Instructions: do not exceed 4 doses per 24 hrs Referrals: Geremias Melchor MD [Primary Care Provider] - In 1 week Problem List Clinical Impression: Diverticulitis of intestine with abscess, UTI (urinary tract infection), [place]-vesical fistula Patient/Caregiver Discharge Instructions Print Language: Upper Sorbian Stand Alone Forms: Katherin Award Info., Patient Portal Info Letter
[2024-11-29 22:54] LABS: Lactate (Lactic Acid) 1.6 mMol/L (0.4-2.0)
[2024-11-29 23:00] LABS: Sed Rate (ESR) 37 mm/hr (0-20)
[2024-11-29] MEDS: SODIUM CHLORIDE 0.9% 1000 ML 1,000 ML 999 ML IV (23:13)
[2024-11-29] MEDS: MORPHINE SULF INJ 10 MG/ML VIAL 4 MG IVP (23:15)
[2024-11-29] MEDS: ONDANSETRON INJ 2 MG/ML INJ 2 ML 4 MG IVP (23:17)
[2024-11-29] MEDS: KETOROLAC INJ 30 MG/ML VIAL IVP (23:19)
[2024-11-29] MEDS: CIPROFLOXACIN/D5w 400 MG IVPB 400 MG/200 ML BAG 200 MG IV (23:21)
[2024-11-29 23:25] LABS: C-Reactive Protein 1.2 mg/dL (0.0-0.9); Procalcitonin < 0.04 ng/ml (0.0-0.49)
[2024-11-30] VITALS (8 sets, daily range): BP systolic 100–141; BP diastolic 70–93; PULSE 57–94; RESP 15–109; TEMP 36.1–36.3; O2SAT 97–99; BMI 32.6
--- NOTE | 2024-11-30 00:10 | PD.RESHP ---
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 Patient stated that symptoms started few days ago and consisted of air/bubbles in the urine, stool contents in the urine, burning, pelvic pain, foul odor. She had a hysterectomy [place] [address] Anand and lysis of adhesions by Dr Storey. She needed to have colon repair during the procedure. Sometime after the procedure, patient developed intestinal abscess. In September, she was transferred from [facility] ED to [place]. In [place], patient underwent drainage of the abscess. Symptoms had resolved for some time, however have now worsened in the past week. Endorses decreased appetite, chills. Denies any chest pain, hematuria, or melena. She has tried taking [id number] medications for symptomatic relief such as Tylenol which have not helped. In ED, vital stable. Mild leukocytosis 11.4. CRP elevated 1.2, all other electrolytes unremarkable. UA positive for CT A/P findings of sigmoid diverticulitis, air travel in urinary bladder suspicious of a fistula between colon and bladder. Surgery Dr. Melchor was consulted. Patient will be admitted for IV antibiotics and evaluation of possible surgery for colovesical fistula. PMH: As noted above PSH: As noted above FamHx: father from [place]. DM/HTN in mother. 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 Mucosa moist. Pupils are equal and reactive to light bilaterally Cardiovascular: Normal S1 and S2. Regular rate and rhythm. Respiratory: Lungs are clear to auscultation bilaterally. No wheezing or crackles heard. Abdomen: Soft, lower abdomen tenderness, not distended, normal bowel sounds. Skin: Warm to touch, dry, no rashes noted Musculoskeletal: No gross injuries. Able to move all 4 extremities. No pitting edema Neuro: Alert and oriented x3. No focal neuro deficits. Psych: Normal affect and mood Results: Labs 11/29/24 16:03 11/29/24 16:03 Labs: Short CBC 11/29/24 Range/Units 16:03 WBC 11.4 H (3.6-11.0) Thou/mm3 Hgb 12.5 (12.0-16.0) g/dL Hct 37.1 (36.0-46.0) % Plt Count 397 (140-440) Thou/mm3 BMP 11/29/24 16:03 Sodium 140 Potassium 3.7 Chloride 105 Carbon Dioxide 24.2 BUN 9 Creatinine 0.7 Glucose 103 Calcium 8.7 Liver Function 11/29/24 Range/Units 16:03 Total Bilirubin 0.3 (0.3-1.2) mg/dL AST 23 (0-34) U/L ALT 31 (10-49) U/L Alkaline Phosphatase 86 (46-116) U/L Albumin 4.3 (3.5-5.0) gm/dL Urine 11/29/24 Range/Units 18:48 Urine Color Yellow (Lt Yel-Yel) Urine Clarity Turbid A (Clear/Hazy) Urine pH 6.0 (5.0-7.0) Ur Specific [place] 1.022 (1.001-1.035) Urine Protein 1+ A (Neg - Trace) Urine Glucose (UA) Negative (Negative) Quality Measures Quality Measures none Medications Home Medications and Allergies Home Medications ?Medication ?Instructions ?Recorded ?Confirmed ?Type acetaminophen 500 mg tablet 1,000 mg PO Q6H PRN pain 08/23/24 11/30/24 History (Acetaminophen Extra Strength) atorvastatin 40 mg tablet 10 mg PO HS 08/23/24 11/30/24 History cholecalciferol (vitamin D3) 50 10,000 unit PO QWEEK 08/23/24 11/30/24 History mcg (2,000 unit) tablet (Vitamin D3) fluoxetine 20 mg capsule 20 mg PO DAILY 08/23/24 11/30/24 History omeprazole 40 mg capsule,delayed 40 mg PO DAILY 08/23/24 11/30/24 History release rimegepant 75 mg disintegrating 75 mg PO QDAY 08/26/24 11/30/24 History tablet (Nurtec ODT) sumatriptan succinate 50 mg tablet 50 mg PO DAILY PRN migraine 10/04/24 11/30/24 History (Imitrex) headache Allergies Allergy/AdvReac Type Severity Reaction Status Date / Time No Known Allergies Allergy Verified 11/29/24 15:42 Visit Medications Acetaminophen (Acetaminophen 325 Mg Tablet) 650 mg PO Q6H PRN PRN Reason: Fever >100.3 or pain Stop: 12/29/24 23:17 Enoxaparin Sodium (Enoxaparin Sod Inj 40 Mg/0.4 Ml Syringe) 40 mg SC QDAY [facility] Stop: 12/14/24 08:59 Piperacillin/Tazobactam/Dextrose (Zosyn) 50 mls @ 100 mls/hr IV Q6HR DANIEL Stop: 12/06/24 23:23 Ondansetron HCl (Ondansetron Inj 2 Mg/Ml Inj 2 Ml) 4 mg IVP Q6H PRN; Protocol PRN Reason: NAUSEA OR VOMITING Stop: 12/29/24 23:17 Sennosides (Senna Tablet) 1 tab PO QDAY PRN; Protocol PRN Reason: constipation Stop: 12/29/24 23:17 Discontinued Medications Sodium Chloride (Ns) 1,000 mls @ 999 mls/hr IV .Q1H1M ONE Stop: 11/29/24 22:34 Last Admin: 11/29/24 23:13 Dose: 999 mls/hr Ciprofloxacin/Dextrose (Cipro Ivpb) 400 mg in 200 mls @ 200 mls/hr IV Q12HR DANIEL Stop: 12/06/24 21:34 Last Admin: 11/29/24 23:21 Dose: 200 mls/hr Metronidazole (Flagyl 500 Mg Iv) 500 mg in 100 mls @ 200 mls/hr IV Q8HR DANIEL Stop: 12/06/24 21:34 Last Admin: 11/29/24 23:34 Dose: Not Given Piperacillin/Tazobactam/Dextrose (Zosyn) 3.375 gm in 50 mls @ 100 mls/hr IV X1 ONE Stop: 11/29/24 23:59 Ketorolac Tromethamine (Ketorolac Inj 30 Mg/Ml Vial) 30 mg IVP X1 ONE Stop: 11/29/24 21:35 Last Admin: 11/29/24 23:19 Dose: 30 mg Morphine Sulfate (Morphine Sulf Inj 10 Mg/Ml Vial) 4 mg IVP X1 ONE Stop: 11/29/24 21:35 Last Admin: 11/29/24 23:15 Dose: 4 mg Ondansetron HCl (Ondansetron Inj 2 Mg/Ml Inj 2 Ml) 4 mg IVP X1 ONE; Protocol Stop: 11/29/24 21:35 Last Admin: 11/29/24 23:17 Dose: 4 mg Pantoprazole Sodium (Pantoprazole Inj 40 Mg Vial) 40 mg IVP X1 ONE Stop: 11/29/24 23:22 Assessment & Plan Plan Lona Jose is 49 yr female with PMH of cholecystectomy, diverticulitis, abdominal hysterectomy with salpingo-oophorectomy in August 2024, 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 CT A/P findings of sigmoid diverticulitis, air travel in urinary bladder suspicious of a fistula. Surgery Dr. Melchor was consulted. Patient will be admitted for IV antibiotics and evaluation of possible surgery for colovesical fistula. #Colovesical fistula #Hx intestinal abscess s/p I&D # Complicated UTI UA positive for leukocyte esterase, WBC 1864, 2+ bacteria. Mild leukocytosis 11.4, CMP unremarkable. Patient is complaining of dysuria, urgency, pelvic pain since past couple days. Has noticed air/bubbles during urination and some stool contents. Endorses foul smell. I&D was completed in [place] in September of this year per patient. -Dr. Mai surgery consulted. Appreciate recommendations ? N.p.o. - IV Zosyn 3.375 g q6hr - Urine cultures pending ? Blood cultures pending - Pain management with IV morphine 2 mg q4hr #Hx HLD #Hx anxiety #Hx GERD -med rec pending Health maintenance: Dispo: medsurg, IV abx for fistula, surgery eval pending FEN: NPO midnight DVT prophylaxis: Lovenox CODE STATUS: Full code The patient's management plan was discussed with my attending physician Dr. Serra. Araceli Disla, PGY-1 Attending Provider Attestation/Addendum I have examined the patient, reviewed labs and imaging findings, discussed the case with the resident(s), and reviewed entered orders. I agree with the plan of care as outlined in this note, with these additional summaries/recommendations: After examination of the patient and review of the clinical data, I feel that this patient needs admission to the hospital for further treatment and evaluation. Patient is a 49-year-old female with a medical history of diverticulosis/diverticulitis, hyperlipidemia, anxiety, GERD, FAMILIA/BSO and bowel repair followed by Dr. Melchor presented to [facility] emergency department on 11/29/2024 with chief complaints of abdominal pain, diarrhea, and feces and urine. Patient and seen at bedside. Patient endorses lower abdominal pain, intractable nausea/vomiting, diarrhea, and feces in her urine. Patient has been following general surgery Dr. Melchor for diverticulitis/diverticulosis and known colo-vesical fistula. On admission patient was found to have leukocytosis to 11.4. Patient underwent CT abdomen/pelvis which revealed acute sigmoid diverticulitis, suspicious for very early peridiverticular phlegmonous mass 30 mm which may represent early abscess although not fluid-filled at this time, and air droplets in urinary bladder confirming fistulous communication between the sigmoid colon and the bladder. Patient diagnosed with acute diverticulitis. Start IV Zosyn and order blood cultures. As needed pain management and clear liquid diet. General surgery consulted for fistulous communication and agreed on admission with likely surgical intervention and will evaluate in AM. Patient also diagnosed with urinary tract infection. Urine culture taken. Start IV Zosyn. Will resume home statin and fluoxetine once tolerating p.o. intake. Patient updated on the plan and in agreement. All questions answered to satisfaction. Repeat hematology and chemistry panel in AM. Please see residents note for additional details and management. Dr. Ponce MD
[2024-11-30] MEDS: PIPER/TAZO 3.375 GM PREMIX 3.375 GM/50 ML BAG IV ×4 (01:14→21:09)
[2024-11-30] MEDS: PANTOPRAZOLE INJ 40 MG VIAL IVP (01:14)
[2024-11-30 06:07] LABS: Basophils % (Auto) 1 % (0-2.5); Eosinophils # (Auto) 0.2 Thou/mm3 (0.0-0.5); Eosinophils % (Auto) 4 % (0-10); Hematocrit 34.3 % (36.0-46.0); Hemoglobin 11.2 g/dL (12.0-16.0); Immature Granulocytes % (Auto) 1 % (0-0); Immature Granulocytes Auto 0.05 Thou/mm3 (0.00-0.00); Lymphocytes # (Auto) 2.6 Thou/mm3 (1.0-4.8); Lymphocytes % (Auto) 39 % (10-50); Mean Corpuscular HGB Conc 32.7 g/dl (31.0-37.0); Mean Corpuscular Hemoglobin 27.8 pg (25.0-35.0); Mean Corpuscular Volume 85 fL (80-100); Monocytes # (Auto) 0.6 Thou/mm3 (0.0-0.8); Monocytes % (Auto) 8 % (0-12); Neutrophils # (Auto) 3.1 Thou/mm3 (1.8-7.7); Neutrophils % (Auto) 48 % (37-80); Nucleated Red Blood Cell % 0 /100 WBC (0); Platelet Count 307 Thou/mm3 (140-440); Red Blood Count 4.03 Miln/mm3 (4.00-5.20); White Blood Count 6.6 Thou/mm3 (3.6-11.0)
[2024-11-30 06:09] LABS: Alanine Aminotransferase 27 U/L (10-49); Albumin, Serum 3.7 gm/dL (3.5-5.0); Albumin/Globulin Ratio 1.7 (1.2-2.2); Alkaline Phosphatase 74 U/L (46-116); Anion Gap 10 (7-16); Aspartate Amino Transferase 20 U/L (0-34); BUN/Creatinine Ratio 13 Ratio (12-20); Bilirubin,Total 0.4 mg/dL (0.3-1.2); Blood Urea Nitrogen 9 mg/dL (9-23); Calcium 7.8 mg/dL (8.3-10.6); Carbon Dioxide 24.9 mMol/L (20.0-31.0); Chloride 107 mMol/L (98-107); Creatinine (Component) 0.7 mg/dL (0.6-1.3); Estimated Creatinine Clearance 100.7 mL/min (>60); Globulin 2.2 gm/dL (2.3-3.5); Glucose 87 mg/dL (74-106); Magnesium 1.9 mg/dL (1.6-2.6); Osmolality,Calculated 280 (275-295); Phosphorous 3.1 mg/dL (2.4-5.1); Potassium 3.6 mMol/L (3.4-5.1); Sodium 142 mMol/L (136-145); Total Protein 5.9 gm/dL (5.7-8.2); eGFR > 60 See Note
[2024-11-30] MEDS: ENOXAPARIN SOD INJ 40 MG/0.4 ML SYRINGE SC (08:43)
[2024-11-30] MEDS: CALCIUM CARBONATE 600 MG TABLET PO (08:46)
[2024-11-30] MEDS: ACETAMINOPHEN 325 MG TABLET 650 MG PO ×2 (08:46→15:00)
--- NOTE | 2024-11-30 11:11 | ESPR_ITS ---
<Statement entered by Samuel North MD - 12/04/24 14:42> I reviewed above note and agree with findings and plans. I have also personally examined the patient with medicine team and went over assessment and plan with medical team including engineering intern and resident physician. Documentation for date of: 11/30/24 Subjective Subjective Interval history: Overnight admission. Seen and examined at bedside and patient endorses left and right lower quadrant abdominal pain and endorses pneumaturia and fecaluria. Vital signs stable, no fevers overnight. Leukocytosis resolved overnight, chem panel largely unremarkable with exception of mildly low calcium that was repleted. Otherwise, will await for further recommendations from general surgery and will continue with IV antibiotics. Exam Vital Signs Temp Pulse Resp BP Pulse Ox O2 Del Method 97 F 67 16 107/70 97 Room Air 11/30/24 08:00 11/30/24 08:00 11/30/24 08:00 11/30/24 08:00 11/30/24 08:00 11/30/24 08:00 Narrative Exam General: AOx3, no acute distress, able to speak full sentences HEENT: NC/AT, mucous membranes moist, bilateral sclera anicteric Cardiovascular: regular rate and rhythm, S1/S2 present, no murmurs appreciated Pulmonary: clear to auscultation bilaterally, no rales/rhonchi/wheezes Abdominal: tenderness in lower quadrants, soft, non-distended, no rebound/guarding Musculoskeletal: normal ROM, no peripheral edema Skin: warm and dry, intact, no rashes Neuro: CN II-XII intact, no focal deficits Objective Labs 11/30/24 05:05 11/30/24 05:05 Labs: Laboratory Results - last 24 hr 11/29/24 11/29/24 11/29/24 16:03 18:48 22:40 WBC 11.4 H RBC 4.44 Hgb 12.5 Hct 37.1 MCV 84 MCH 28.2 MCHC 33.7 RDW Std Deviation 42.3 Plt Count 397 Neut % (Auto) 61 Lymph % (Auto) 30 [place] % (Auto) 7 Eos % (Auto) 2 Baso % (Auto) 1 Neut # (Auto) 6.9 Lymph # (Auto) 3.4 [place] # (Auto) 0.7 Eos # (Auto) 0.2 Baso # (Auto) 0.1 Immature Gran # (Auto) 0.05 H Absolute Nucleated RBC 0.00 Immature Gran % 0 Nucleated RBC % 0 ESR 37 H Sodium 140 Potassium 3.7 Chloride 105 Carbon Dioxide 24.2 Anion Gap 11 BUN 9 Creatinine 0.7 Estim Creat Clear Calc Not Performed. eGFR > 60 BUN/Creatinine Ratio 13 Glucose 103 Calculated Osmolality 278 Lactic Acid 1.6 Calcium 8.7 Corrected Calcium 8.7 Phosphorus Magnesium 2.0 Total Bilirubin 0.3 AST 23 ALT 31 Alkaline Phosphatase 86 C-Reactive Prot, Quant 1.2 H Total Protein 7.0 Albumin 4.3 Globulin 2.7 Albumin/Globulin Ratio 1.6 Lipase 42 Procalcitonin < 0.04 Ur Collection Type Clean Catch Urine Color Yellow Urine Clarity Turbid A Urine pH 6.0 Ur Specific [place] 1.022 Urine Protein 1+ A Urine Glucose (UA) Negative Urine Ketones Negative Urine Blood 2+ A Urine Nitrite Negative Urine Bilirubin Negative Urine Urobilinogen (Auto) Negative Ur Leukocyte Esterase Positive Urine RBC 110 H Urine WBC 1864 H Ur Squamous Epith Cells 1 Urine Bacteria 2+ A Urine HCG, Qual Negative 11/30/24 05:05 WBC 6.6 D RBC 4.03 Hgb 11.2 L Hct 34.3 L MCV 85 MCH 27.8 MCHC 32.7 RDW Std Deviation 43.0 Plt Count 307 D Neut % (Auto) 48 Lymph % (Auto) 39 [place] % (Auto) 8 Eos % (Auto) 4 Baso % (Auto) 1 Neut # (Auto) 3.1 Lymph # (Auto) 2.6 [place] # (Auto) 0.6 Eos # (Auto) 0.2 Baso # (Auto) 0.0 Immature Gran # (Auto) 0.05 H Absolute Nucleated RBC 0.00 Immature Gran % 1 H Nucleated RBC % 0 ESR Sodium 142 Potassium 3.6 Chloride 107 Carbon Dioxide 24.9 Anion Gap 10 BUN 9 Creatinine 0.7 Estim Creat Clear Calc 100.7 eGFR > 60 BUN/Creatinine Ratio 13 Glucose 87 Calculated Osmolality 280 Lactic Acid Calcium 7.8 L Corrected Calcium 8.0 L Phosphorus 3.1 Magnesium 1.9 Total Bilirubin 0.4 AST 20 ALT 27 Alkaline Phosphatase 74 C-Reactive Prot, Quant Total Protein 5.9 Albumin 3.7 D Globulin 2.2 L Albumin/Globulin Ratio 1.7 Lipase Procalcitonin Ur Collection Type Urine Color Urine Clarity Urine pH Ur Specific [place] Urine Protein Urine Glucose (UA) Urine Ketones Urine Blood Urine Nitrite Urine Bilirubin Urine Urobilinogen (Auto) Ur Leukocyte Esterase Urine RBC Urine WBC Ur Squamous Epith Cells Urine Bacteria Urine HCG, Qual Quality Measures Quality Measures none Assessment & Plan Assessment Current Active Medications: Generic Name Dose Route Start Last Admin Trade Name Freq PRN Reason Stop Dose Admin Acetaminophen 650 mg 11/30/24 02:47 11/30/24 08:46 Acetaminophen 325 Mg Tablet PO 12/29/24 23:17 650 mg Q6H PRN Administration Fever >100.3 or pain 1-4 Calcium Carbonate 600 mg 11/30/24 09:00 11/30/24 08:46 Calcium Carbonate 600 Mg Tablet PO 12/30/24 08:59 600 mg QDAY DANIEL Administration Enoxaparin Sodium 40 mg 11/30/24 09:00 11/30/24 08:43 Enoxaparin Sod Inj 40 Mg/0.4 Ml Syringe SC 12/14/24 08:59 40 mg QDAY DANIEL Administration Piperacillin/Tazobactam/Dextrose 3.375 gm in 50 mls @ 12.5 mls/hr 11/30/24 06:00 11/30/24 05:25 Zosyn IV 12/07/24 05:59 12.5 mls/hr Q8HR DANIEL Administration Protocol Morphine Sulfate 2 mg 11/30/24 00:32 Morphine Sulf Inj 10 Mg/Ml Vial IVP Q4HR PRN pain 6-10 Ondansetron HCl 4 mg 11/29/24 23:18 Ondansetron Inj 2 Mg/Ml Inj 2 Ml IVP 12/29/24 23:17 Q6H PRN NAUSEA OR VOMITING Protocol Sennosides 1 tab 11/29/24 23:18 Senna Tablet PO 12/29/24 23:17 QDAY PRN constipation Protocol Plan Lona Jose is a 49-year-old female with a past medical history of hyperlipidemia, GERD, anxiety, diverticulitis complicated by peridiverticular abscess, endometriosis with spread to colon s/p hysterectomy and salpingo- oophorectomy on 08/2024, status-post lysis of adhesions and bowel repair complicated by intra-abdominal abscess s/p I&D and now presents with colovesical fistula and acute diverticulitis. #Acute diverticulitis with possible abscess formation #History of diverticulitis with peridiverticular absccess s/p I&D CT A/P showed acute sigmoid diverticulitis and possible early peridiverticular phlegmonous mass that is not amenable for drainage at this time, air in urinary bladder ? IV Zosyn 3.375 g q6hr ? Blood cultures pending ? Pain management with IV morphine 2 mg q4hr #Colovesical fistula #UTI complicated by colovesical fistula UA positive for leukocyte esterase, WBC 1864, 2+ bacteria. Mild leukocytosis 11.4, CMP unremarkable. Patient is complaining of dysuria, urgency, pelvic pain since past couple days. Has noticed air/bubbles during urination and some stool contents. Endorses foul smell. I&D was completed in [place] in September of this year per patient. ? Dr. Melchor consulted, appreciate recommendations ? N.p.o. ? Urine cultures pending #History of anxiety ? Fluoxetine 20 mg p.o. daily #History of GERD ? Omeprazole 40 mg p.o. daily #History of hyperlipidemia ? No longer taking statin Health maintenance: Disposition: medsurg, IV abx for fistula, surgery eval pending Diet: NPO for possible procedure DVT prophylaxis: Lovenox Lines: PIV CODE STATUS: Full code ----- Plan discussed with attending physician Dr. Can Pelaez MD PGY-1 Internal Medicine
--- NOTE | 2024-11-30 11:31 | PC.SS ---
Lona Damon is a 49-year-old female admitted to Med Surg for Colorectal Fistula. SS conducted bedside contact with the patient to complete initial assessment and to discuss discharge planning. Role and reason explained. Patient confirmed demographic information. Patient identifies her Lew Rod [phone] as her surrogate decision maker. Pt states she is able to complete all ADL?s independently. No need for any source of DME. Pts PCP is Dr. Laurent at [facility] [place]. Pharmacy of choice is [facility]. Discharge options discussed and the pt wishes to return home.? Family will provide transportation upon DC. No further intervention required at this time, social problems specialist would be available to address any further concerns. DC Plan: Home Contact: Lew Address: Confirmed on face sheet PCP: Anastasiia Almaguer
--- NOTE | 2024-11-30 15:15 | ESCONSULT_ITS ---
HPI Consult details Consult date: 11/30/24 Reason for consultation narrative: Perforated diverticulitis abscess and colovesicular fistula. History of present illness: This 49-year-old female diverticulitis and endometriosis and she had abdominal hysterectomy and was noted to have colon adherent to the inflammatory areas and then was noted to have a perforation likely from previous diverticulitis. This was repaired patient was discharged home and developed a pelvic abscess she was evaluated and transferred to [facility] for drainage of the abscess. The abscess was drained the patient got a little bit better she continues to have pneumaturia and fecal material in the urine. Apparently she has no connection or fistula through the vaginal vault. She has severe UTI with complaints of pain in the lower and upper abdomen. She was admitted after the CAT scan was done in the emergency room that showed perforation and phlegmon and collection of fluid in the pelvis. She was also noted to have air in the urinary bladder. She needs colonoscopy under general anesthesia and she would also need a fistulogram that I will put her schedule and do that in the operating room under C-arm fluoroscopy. Currently patient is on IV antibiotics and that will allow the inflammation to subside. Thank you for involving me in the management of this patient and I will go ahead and proceed with the colonoscopy and fistulogram in due course. Past Medical History Past Medical History NEUROLOGIC: Positive Neurological Disorders and Migraine; Negative Seizures CARDIAC: Positive Hypercholesterolemia; Negative Cardiac Disorders or Congestive Heart Failure RESPIRATORY: Negative Chronic Obstructive Pulmonary Disease (COPD) or Asthma GASTROINTESTINAL: Positive Gastrointestinal Disorders, Diverticulitis, Gastroesophageal Reflux Disease and Obesity; Negative Hepatitis GENITOURINARY: Negative Genitourinary Disorders or Renal Disease REPRODUCTIVE: Positive Previous Pregnancies MUSCULOSKELETAL: Positive Musculoskeletal Disorders ENDOCRINE: Negative Endocrine Disorders, Diabetes Mellitus Type 1 or Diabetes Mellitus Type 2 HEMATOLOGIC: Negative Blood Disorders or Sickle Cell Disease PSYCHO/SOCIAL: Positive Anxiety OTHER HISTORY: Positive Hospitalization; Negative Autoimmune Disease, Shingles, Falls, Blood Transfusions, Blood Transfusion Reaction, Anesthesia Reactions or Cancer Family History FAMILY HISTORY: Positive Family Cardiac Disorders and Family Surgery (Hysterectomy); Negative Family Psychiatric Problems, Family Respiratory Disorders, Family Gastrointestinal Problems, Family Cancer or Family Anesthesia Reaction Surgical History SURGICAL: Positive Abdominal Surgery, Hysterectomy and Section Social History SMOKING STATUS: Never smoker SECOND HAND EXPOSURE: No SUBSTANCE USE: does not use Meds Home Medications and Allergies Home Medications ?Medication ?Instructions ?Recorded ?Confirmed ?Type acetaminophen 500 mg tablet 1,000 mg PO Q6H PRN pain 0 08/23/24 11/30/24 History (Acetaminophen Extra Strength) atorvastatin 40 mg tablet 10 mg PO HS 08/23/24 5 History cholecalciferol (vitamin D3) 50 10,000 unit PO QWEEK 0 08/23/24 11/30/24 History mcg (2,000 unit) tablet (Vitamin D3) fluoxetine 20 mg capsule 20 mg PO DAILY 08/23/2411/03 History omeprazole 40 mg capsule,delayed 40 mg PO DAILY 11/30/24 History release rimegepant 75 mg disintegrating 75 mg PO QDAY 08/26/24 11/30/24 History tablet (Nurtec ODT) sumatriptan succinate 50 mg tablet 50 mg PO DAILY PRN migraine 10/04/24 11/30/24 History (Imitrex) headache Allergies Allergy/AdvReac Type Severity Reaction Status Date / Time No Known Allergies Allergy Verified 11/29/24 15:42 Exam Vital Signs Temp Pulse Resp BP Pulse Ox O2 Del Method 97.1 F 92 18 100/74 99 Room Air 11/30/24 12:00 11/30/24 12:41 11/30/24 12:41 11/30/24 12:00 11/30/24 12:00 11/30/24 12:00 Constitutional Constitutional: no acute distress Routine HEENT Exam Head: Present normocephalic Eye: Present EOMI and PERRL ENT: Present mucous membranes moist Routine Neck Exam Neck: Present supple and trachea midline Routine Chest/Breast/Axilla Exam Chest wall: Absent tenderness or mass Routine Respiratory Exam Respiratory: Present chest non-tender, lungs clear, normal breath sounds and no resp distress; Absent respiratory distress Routine Cardiovascular Exam Cardiovascular: Present RRR Routine Abdominal Exam Abdominal: Present normoactive bowel sounds, tenderness and surgical scars Comments: This patient has a tenderness in both the lower quadrant there is mild rebound tenderness in the left lower quadrant there is no palpable mass this is correlated to CT scan and suggest that she has a perforation and phlegmon from diverticulitis. Routine Extremities Exam Extremities: Present full ROM Routine Skin Exam Skin: Present intact, dry and warm Routine Neurological Exam Neurological: Present alert, oriented X3 and CN II-XII intact Routine Psychiatric Exam Psychiatric: Present normal affect and normal thought process Results Results: Laboratory Laboratory results: results reviewed Results: Imaging CT scan - abdomen: report reviewed and image reviewed CT scan - pelvis: report reviewed and image reviewed Assessment & Plan Problem List (1) [place]-vesical fistula: Status: Acute (2) UTI (urinary tract infection): Status: Acute (3) Diverticulitis of intestine with abscess: Status: Acute Plan Continue with the IV antibiotics at this time I will schedule colonoscopy under general anesthesia and fluoroscopy with fistulogram through the bladder. Patient has required IV narcotics for pain management. Thank you I will follow along with you.
[2024-11-30] MEDS: SUMAtriptan 25 MG TABLET 50 MG PO (17:02)
[2024-11-30] MEDS: MORPHINE SULF INJ 10 MG/ML VIAL 2 MG IVP (19:14)
[2024-11-30] MEDS: PANTOPRAZOLE 40 MG TABLET PO (21:10)
--- NOTE | 2024-11-30 21:34 | PC.NURSE ---
MD Morrissey made aware that pt is NPO since last night and pt doesnt have any fluids order, per MD will check on pts chart.
[2024-12-01] VITALS (8 sets, daily range): BP systolic 107–119; BP diastolic 68–87; PULSE 65–85; RESP 16–98; TEMP 36.3–36.9; O2SAT 96–99; BMI 32.6
[2024-12-01] MEDS: PIPER/TAZO 3.375 GM PREMIX 3.375 GM/50 ML BAG IV ×3 (05:18→21:20)
[2024-12-01 06:15] LABS: Basophils # (Auto) 0.1 Thou/mm3 (0.0-0.2); Basophils % (Auto) 1 % (0-2.5); Eosinophils # (Auto) 0.2 Thou/mm3 (0.0-0.5); Eosinophils % (Auto) 3 % (0-10); Hematocrit 33.8 % (36.0-46.0); Hemoglobin 11.5 g/dL (12.0-16.0); Immature Granulocytes % (Auto) 0 % (0-0); Immature Granulocytes Auto 0.03 Thou/mm3 (0.00-0.00); Lymphocytes # (Auto) 1.9 Thou/mm3 (1.0-4.8); Lymphocytes % (Auto) 27 % (10-50); Mean Corpuscular Hemoglobin 27.7 pg (25.0-35.0); Mean Corpuscular Volume 81 fL (80-100); Monocytes # (Auto) 0.5 Thou/mm3 (0.0-0.8); Monocytes % (Auto) 6 % (0-12); Neutrophils # (Auto) 4.5 Thou/mm3 (1.8-7.7); Neutrophils % (Auto) 63 % (37-80); Nucleated Red Blood Cell % 0 /100 WBC (0); Platelet Count 318 Thou/mm3 (140-440); RDW Standard Deviation 40.3 fL (36.4-46.3); Red Blood Count 4.15 Miln/mm3 (4.00-5.20); White Blood Count 7.2 Thou/mm3 (3.6-11.0)
[2024-12-01] MEDS: SODIUM CHLORIDE 0.9% 1000 ML 1,000 ML 80 ML IV (06:33)
[2024-12-01 06:45] LABS: Alanine Aminotransferase 31 U/L (10-49); Albumin, Serum 3.8 gm/dL (3.5-5.0); Albumin/Globulin Ratio 1.5 (1.2-2.2); Alkaline Phosphatase 78 U/L (46-116); Anion Gap 12 (7-16); Aspartate Amino Transferase 24 U/L (0-34); BUN/Creatinine Ratio 13 Ratio (12-20); Bilirubin,Total 0.5 mg/dL (0.3-1.2); Blood Urea Nitrogen 9 mg/dL (9-23); Calcium 8.1 mg/dL (8.3-10.6); Calcium (Corrected) 8.3 mg/dL (8.5-10.1); Carbon Dioxide 23.6 mMol/L (20.0-31.0); Chloride 105 mMol/L (98-107); Creatinine (Component) 0.7 mg/dL (0.6-1.3); Estimated Creatinine Clearance 100.7 mL/min (>60); Globulin 2.5 gm/dL (2.3-3.5); Glucose 81 mg/dL (74-106); Osmolality,Calculated 278 (275-295); Potassium 3.4 mMol/L (3.4-5.1); Sodium 141 mMol/L (136-145); Total Protein 6.3 gm/dL (5.7-8.2); eGFR > 60 See Note
--- NOTE | 2024-12-01 10:03 | ESPR_ITS ---
<Statement entered by Samuel North MD - 12/06/24 15:44> I reviewed above note and agree with findings and plans. I have also personally examined the patient with medicine team and went over assessment and plan with medical team including advertising internship and resident physician. Documentation for date of: 12/01/24 Subjective Subjective Interval history: Patient was seen and examined at bedside this morning. No acute overnight events. Patient states that she feels a little bit better from her pain, but is still a 6-7 and generalized in the abdomen. Patient's lab are fairly unremarkable and she has not had any spiking fevers or in WBC. Spoke with general surgeon who stated that patient will need colonoscopy and fistulogram with possible surgery due to abscess formation. She has no other complaints at this time and states that her headaches is better controlled. Exam Vital Signs Temp Pulse Resp BP Pulse Ox O2 Del Method 98.5 F 66 18 110/68 99 Room Air 12/01/24 08:00 12/01/24 08:00 12/01/24 08:00 12/01/24 08:00 12/01/24 08:00 12/01/24 08:00 Narrative Exam General: A/O x3, no acute distress Eyes: PERRL, EOMI. Anicteric, vision grossly intact. Ears: No ear pain, no ear discharge, Hearing grossly intact. Nose: No nasal discharge. Mouth/Throat: Moist mucous membranes, no redness, no lesions. Neck: Neck supple, non-tender, no cervical lymphadenopathy. Lungs: Clear MIKE to auscultation and percussion, No accessory muscle use. Cardio: Normal S1/S2, regular rhythm, no murmurs, no JVD or carotid bruits. Abdomen: Soft, generalized tenderness, no palpable masses, peristalsis present, no guarding or rebound. Extremities: Symmetrical, no significant deformities, no peripheral edema , non-tender, peripheral pulses presents. Skin: No rashes, no lesions, warm to touch. Neuro: No focal neurological deficits. mototr and sensory intact Psych: Cooperative, appropriate mood and effect. Objective Labs 12/01/24 04:58 12/01/24 04:58 Labs: Laboratory Results - last 24 hr 12/01/24 04:58 WBC 7.2 RBC 4.15 Hgb 11.5 L Hct 33.8 L MCV 81 MCH 27.7 MCHC 34.0 RDW Std Deviation 40.3 Plt Count 318 Neut % (Auto) 63 Lymph % (Auto) 27 [place] % (Auto) 6 Eos % (Auto) 3 Baso % (Auto) 1 Neut # (Auto) 4.5 Lymph # (Auto) 1.9 [place] # (Auto) 0.5 Eos # (Auto) 0.2 Baso # (Auto) 0.1 Immature Gran # (Auto) 0.03 H Absolute Nucleated RBC 0.00 Immature Gran % 0 Nucleated RBC % 0 Sodium 141 Potassium 3.4 Chloride 105 Carbon Dioxide 23.6 Anion Gap 12 BUN 9 Creatinine 0.7 Estim Creat Clear Calc 100.7 eGFR > 60 BUN/Creatinine Ratio 13 Glucose 81 Calculated Osmolality 278 Calcium 8.1 L Corrected Calcium 8.3 L Total Bilirubin 0.5 AST 24 ALT 31 Alkaline Phosphatase 78 Total Protein 6.3 Albumin 3.8 Globulin 2.5 Albumin/Globulin Ratio 1.5 Quality Measures Quality Measures none Assessment & Plan Assessment Current Active Medications: Generic Name Dose Route Start Last Admin Trade Name Freq PRN Reason Stop Dose Admin Acetaminophen 650 mg 11/30/24 02:47 11/30/24 15:00 Acetaminophen 325 Mg Tablet PO 12/29/24 23:17 650 mg Q6H PRN Administration Fever >100.3 or pain 1-4 Calcium Carbonate 600 mg 11/30/24 09:00 12/01/24 09:22 Calcium Carbonate 600 Mg Tablet PO 12/30/24 08:59 Not Given QDAY [facility] Enoxaparin Sodium 40 mg 11/30/24 09:00 12/01/24 09:22 Enoxaparin Sod Inj 40 Mg/0.4 Ml Syringe SC 12/14/24 08:59 Not Given QDAY [facility] Fluoxetine HCl 20 mg 11/30/24 13:15 12/01/24 09:22 Fluoxetine Hcl 10 Mg Capsule PO 12/30/24 13:14 Not Given DAILY [facility] Piperacillin/Tazobactam/Dextrose 3.375 gm in 50 mls @ 12.5 mls/hr 11/30/24 06:00 12/01/24 05:18 Zosyn IV 12/07/24 05:59 12.5 mls/hr Q8HR DANIEL Administration Protocol Sodium Chloride 1,000 mls @ 80 mls/hr 12/01/24 06:21 12/01/24 06:33 Ns IV 12/01/24 18:50 80 mls/hr .[id number] ONE Administration Morphine Sulfate 2 mg 11/30/24 00:32 11/30/24 19:14 Morphine Sulf Inj 10 Mg/Ml Vial IVP 2 mg Q4HR PRN Administration pain 6-10 Ondansetron HCl 4 mg 11/29/24 23:18 Ondansetron Inj 2 Mg/Ml Inj 2 Ml IVP 12/29/24 23:17 Q6H PRN NAUSEA OR VOMITING Protocol Pantoprazole Sodium 40 mg 11/30/24 13:15 12/01/24 09:22 Pantoprazole 40 Mg Tablet PO 12/30/24 13:14 Not Given BID DANIEL Sennosides 1 tab 11/29/24 23:18 Senna Tablet PO 12/29/24 23:17 QDAY PRN constipation Protocol Plan 49-year-old female with a past medical history of hyperlipidemia, GERD, anxiety, diverticulitis complicated by peridiverticular abscess, endometriosis with spread to colon s/p hysterectomy and salpingo-oophorectomy on 08/2024, status- post lysis of adhesions and bowel repair complicated by intra-abdominal abscess s/p I&D was admitted to the hospital on 11/21/2024 due to acute diverticulitis with possible abscess formation. #Acute diverticulitis with possible abscess formation #History of diverticulitis with peridiverticular absccess s/p I&D CT A/P showed acute sigmoid diverticulitis and possible early peridiverticular phlegmonous mass that is not amenable for drainage at this time, air in urinary bladder ? IV Zosyn 3.375 g q6hr ? Blood cultures pending ? Pain management with IV morphine 2 mg q4hr ? Dr. Melchor consulted, will do colonoscopy with fistulogram and possible surgery due to abscess. #Colovesical fistula #UTI complicated by colovesical fistula Initially was complaining of dysuria, urgency, pelvic pain since past couple days prior to admission and had noticed air/bubbles during urination and some stool contents along with foul smell. I&D was completed in [place] in September of this year per patient. UA positive for bacteria ? Dr. Melchor consulted, appreciate recommendations ? Clear liquid - Continue Zosyn (11/30/2024-) ? Urine cultures pending #History of anxiety ? Fluoxetine 20 mg p.o. daily #History of GERD ? Omeprazole 40 mg p.o. daily #History of hyperlipidemia ? No longer taking statin Disposition: Pending colonoscopy with fistulogram by general surgery. Diet: CLD GI prophylaxis: protonix DVT prophylaxis: SCDs Code: Full Case disclosed with Attending Dr. Can Kauffman PGY1 Disclaimer: Even though this this note was dictated by speech recognition and even though it was carefully revised there may still be minor errors in application support administrator due to voice recognition software.
--- NOTE | 2024-12-01 11:37 | PD.SURPROG ---
Documentation for date of: 12/01/24 Subjective Subjective Brief History: This 49-year-old female diverticulitis and endometriosis and she had abdominal hysterectomy and was noted to have colon adherent to the inflammatory areas and then was noted to have a perforation likely from previous diverticulitis. This was repaired patient was discharged home and developed a pelvic abscess she was evaluated and transferred to [facility] for drainage of the abscess. The abscess was drained the patient got a little bit better she continues to have pneumaturia and fecal material in the urine. Apparently she has no connection or fistula through the vaginal vault. She has severe UTI with complaints of pain in the lower and upper abdomen. She was admitted after the CAT scan was done in the emergency room that showed perforation and phlegmon and collection of fluid in the pelvis. She was also noted to have air in the urinary bladder. She needs colonoscopy under general anesthesia and she would also need a fistulogram that I will put her schedule and do that in the operating room under C-arm fluoroscopy. Currently patient is on IV antibiotics and that will allow the inflammation to subside. Thank you for involving me in the management of this patient and I will go ahead and proceed with the colonoscopy and fistulogram in due course. Progress note dated 12/01/2024: This patient has reduced pain she is feeling better being on antibiotics. She is ready for colonoscopy. I will do a fistulogram and then followed by colonoscopy. This will be scheduled for tomorrow in the operating room under general anesthesia. Will stop Lovenox today. She does not need any anticoagulation from now on avoid bleeding during the procedure. Exam Vital Signs Temp Pulse Resp BP Pulse Ox O2 Del Method 98.5 F 66 18 110/68 99 Room Air 12/01/24 08:00 12/01/24 08:00 12/01/24 08:00 12/01/24 08:00 12/01/24 08:00 12/01/24 08:00 Constitutional Constitutional: no acute distress Routine HEENT Exam Head: Present normocephalic Eye: Present EOMI and PERRL ENT: Present mucous membranes moist Routine Neck Exam Neck: Present supple and trachea midline Routine Chest/Breast/Axilla Exam Chest wall: Absent tenderness or mass Routine Respiratory Exam Respiratory: Present chest non-tender, lungs clear, normal breath sounds and no resp distress; Absent respiratory distress Routine Cardiovascular Exam Cardiovascular: Present RRR Routine Abdominal Exam Abdominal: Present normoactive bowel sounds, tenderness and surgical scars Comments: This patient has a tenderness in both the lower quadrant there is mild rebound tenderness in the left lower quadrant there is no palpable mass this is correlated to CT scan and suggest that she has a perforation and phlegmon from diverticulitis. She has less tenderness in the abdomen but still has mild tenderness in the right lower quadrant and the left lower quadrant. This is improved according to the patient Routine Extremities Exam Extremities: Present full ROM Routine Skin Exam Skin: Present intact, dry and warm Routine Neurological Exam Neurological: Present alert, oriented X3 and CN II-XII intact Routine Psychiatric Exam Psychiatric: Present normal affect and normal thought process Assessment & Plan Diagnosis (1) [place]-vesical fistula: Status: Acute (2) UTI (urinary tract infection): Status: Acute (3) Diverticulitis of intestine with abscess: Status: Acute Plan Keep n.p.o. after midnight GoLytely bowel prep today colonoscopy and fistulogram tomorrow. Informed consent was obtained.
--- NOTE | 2024-12-01 15:13 | PC.SS ---
Rounding: Pending Dr. Melchor rec, DC plan remains home
[2024-12-01] MEDS: NA SU/NAHCO3/KC/PEG (Golytely) 4,000 ML BTL 4000 ML PO (17:03)
[2024-12-01] MEDS: PANTOPRAZOLE 40 MG TABLET PO (21:20)
[2024-12-02] VITALS (18 sets, daily range): BP systolic 97–126; BP diastolic 65–94; PULSE 5–92; RESP 14–97; TEMP 36.1–37; O2SAT 93–100
[2024-12-02 05:33] LABS: Basophils # (Auto) 0.1 Thou/mm3 (0.0-0.2); Basophils % (Auto) 1 % (0-2.5); Eosinophils # (Auto) 0.3 Thou/mm3 (0.0-0.5); Eosinophils % (Auto) 4 % (0-10); Hemoglobin 11.3 g/dL (12.0-16.0); Immature Granulocytes % (Auto) 1 % (0-0); Immature Granulocytes Auto 0.04 Thou/mm3 (0.00-0.00); Lymphocytes # (Auto) 2.2 Thou/mm3 (1.0-4.8); Lymphocytes % (Auto) 26 % (10-50); Mean Corpuscular HGB Conc 33.2 g/dl (31.0-37.0); Mean Corpuscular Hemoglobin 27.6 pg (25.0-35.0); Mean Corpuscular Volume 83 fL (80-100); Monocytes # (Auto) 0.6 Thou/mm3 (0.0-0.8); Monocytes % (Auto) 7 % (0-12); Neutrophils # (Auto) 5.2 Thou/mm3 (1.8-7.7); Neutrophils % (Auto) 62 % (37-80); Nucleated Red Blood Cell % 0 /100 WBC (0); Platelet Count 311 Thou/mm3 (140-440); RDW Standard Deviation 41.5 fL (36.4-46.3); White Blood Count 8.5 Thou/mm3 (3.6-11.0)
[2024-12-02] MEDS: PIPER/TAZO 3.375 GM PREMIX 3.375 GM/50 ML BAG IV ×3 (05:38→21:32)
[2024-12-02 06:06] LABS: Alanine Aminotransferase 34 U/L (10-49); Albumin, Serum 3.8 gm/dL (3.5-5.0); Albumin/Globulin Ratio 1.5 (1.2-2.2); Alkaline Phosphatase 76 U/L (46-116); Anion Gap 11 (7-16); Aspartate Amino Transferase 28 U/L (0-34); BUN/Creatinine Ratio 10 Ratio (12-20); Bilirubin,Total 0.4 mg/dL (0.3-1.2); Blood Urea Nitrogen 7 mg/dL (9-23); Calcium 8.2 mg/dL (8.3-10.6); Calcium (Corrected) 8.4 mg/dL (8.5-10.1); Carbon Dioxide 21.9 mMol/L (20.0-31.0); Chloride 107 mMol/L (98-107); Creatinine (Component) 0.7 mg/dL (0.6-1.3); Estimated Creatinine Clearance 98.5 mL/min (>60); Globulin 2.6 gm/dL (2.3-3.5); Glucose 86 mg/dL (74-106); Magnesium 1.8 mg/dL (1.6-2.6); Osmolality,Calculated 276 (275-295); Potassium 3.3 mMol/L (3.4-5.1); Sodium 140 mMol/L (136-145); Total Protein 6.4 gm/dL (5.7-8.2); eGFR > 60 See Note
[2024-12-02] MEDS: MORPHINE SULF INJ 10 MG/ML VIAL 2 MG IVP ×2 (07:35→12:50)
--- NOTE | 2024-12-02 07:50 | ESPR_ITS ---
<Statement entered by Samuel North MD - 12/06/24 15:45> I reviewed above note and agree with findings and plans. I have also personally examined the patient with medicine team and went over assessment and plan with medical team including international accountant and resident physician. Documentation for date of: 12/02/24 Subjective Subjective Interval history: Patient was seen and examined at bedside this morning. No acute events. Patient had been drinking her GoLytely without any issues and is clear this morning. Patient will undergo colonoscopy today by general surgeon. Lab boo patient only had around some mild hypokalemia which was repleted. No other complaints at this time other than pain in the abdomen. Exam Vital Signs Temp Pulse Resp BP Pulse Ox O2 Del Method 97.3 F 82 17 99/65 94 L Room Air 12/02/24 04:00 12/02/24 04:00 12/02/24 04:00 12/02/24 04:00 12/02/24 04:00 12/02/24 04:00 Narrative Exam General: A/O x3, no acute distress Eyes: PERRL, EOMI. Anicteric, vision grossly intact. Ears: No ear pain, no ear discharge, Hearing grossly intact. Nose: No nasal discharge. Mouth/Throat: Moist mucous membranes, no redness, no lesions. Neck: Neck supple, non-tender, no cervical lymphadenopathy. Lungs: Clear MIKE to auscultation and percussion, No accessory muscle use. Cardio: Normal S1/S2, regular rhythm, no murmurs, no JVD or carotid bruits. Abdomen: Soft, generalized tenderness, no palpable masses, peristalsis present, no guarding or rebound. Extremities: Symmetrical, no significant deformities, no peripheral edema , non-tender, peripheral pulses presents. Skin: No rashes, no lesions, warm to touch. Neuro: No focal neurological deficits. mototr and sensory intact Psych: Cooperative, appropriate mood and effect. Objective Labs 12/02/24 04:44 12/02/24 04:44 Labs: Laboratory Results - last 24 hr 12/02/24 04:44 WBC 8.5 RBC 4.10 Hgb 11.3 L Hct 34.0 L MCV 83 MCH 27.6 MCHC 33.2 RDW Std Deviation 41.5 Plt Count 311 Neut % (Auto) 62 Lymph % (Auto) 26 [place] % (Auto) 7 Eos % (Auto) 4 Baso % (Auto) 1 Neut # (Auto) 5.2 Lymph # (Auto) 2.2 [place] # (Auto) 0.6 Eos # (Auto) 0.3 Baso # (Auto) 0.1 Immature Gran # (Auto) 0.04 H Absolute Nucleated RBC 0.00 Immature Gran % 1 H Nucleated RBC % 0 Sodium 140 Potassium 3.3 L Chloride 107 Carbon Dioxide 21.9 Anion Gap 11 BUN 7 L Creatinine 0.7 Estim Creat Clear Calc 98.5 eGFR > 60 BUN/Creatinine Ratio 10 L Glucose 86 Calculated Osmolality 276 Calcium 8.2 L Corrected Calcium 8.4 L Magnesium 1.8 Total Bilirubin 0.4 AST 28 ALT 34 Alkaline Phosphatase 76 Total Protein 6.4 Albumin 3.8 Globulin 2.6 Albumin/Globulin Ratio 1.5 Quality Measures Quality Measures none Assessment & Plan Assessment Current Active Medications: Generic Name Dose Route Start Last Admin Trade Name Freq PRN Reason Stop Dose Admin Acetaminophen 650 mg 11/30/24 02:47 11/30/24 15:00 Acetaminophen 325 Mg Tablet PO 12/29/24 23:17 650 mg Q6H PRN Administration Fever >100.3 or pain 1-4 Calcium Carbonate 600 mg 11/30/24 09:00 12/01/24 09:22 Calcium Carbonate 600 Mg Tablet PO 12/30/24 08:59 Not Given QDAY [facility] Fluoxetine HCl 20 mg 11/30/24 13:15 12/01/24 09:22 Fluoxetine Hcl 10 Mg Capsule PO 12/30/24 13:14 Not Given DAILY [facility] Piperacillin/Tazobactam/Dextrose 3.375 gm in 50 mls @ 12.5 mls/hr 11/30/24 06:00 12/02/24 05:38 Zosyn IV 12/07/24 05:59 12.5 mls/hr Q8HR DANIEL Administration Protocol Magnesium Sulfate 2 gm in 50 mls @ 25 mls/hr 12/02/24 07:15 Magnesium Sulfate Ivpb IV 12/02/24 09:14 X1 ONE Potassium Chloride 10 meq in 100 mls @ 100 mls/hr 12/02/24 07:15 Kcl Ivpb IV 12/02/24 09:14 Q1H DANIEL Lidocaine 0 gm 12/02/24 08:00 Lidocaine 5% Hemorrhoidal Cream 30 Gm Tube TOP 12/02/24 08:01 X1 ONE Morphine Sulfate 2 mg 11/30/24 00:32 12/02/24 07:35 Morphine Sulf Inj 10 Mg/Ml Vial IVP 2 mg Q4HR PRN Administration pain 6-10 Ondansetron HCl 4 mg 11/29/24 23:18 Ondansetron Inj 2 Mg/Ml Inj 2 Ml IVP 12/29/24 23:17 Q6H PRN NAUSEA OR VOMITING Protocol Pantoprazole Sodium 40 mg 11/30/24 13:15 12/01/24 21:20 Pantoprazole 40 Mg Tablet PO 12/30/24 13:14 40 mg BID DANIEL Administration Sennosides 1 tab 11/29/24 23:18 Senna Tablet PO 12/29/24 23:17 QDAY PRN constipation Protocol Plan 49-year-old female with a past medical history of hyperlipidemia, GERD, anxiety, diverticulitis complicated by peridiverticular abscess, endometriosis with spread to colon s/p hysterectomy and salpingo-oophorectomy on 08/2024, status- post lysis of adhesions and bowel repair complicated by intra-abdominal abscess s/p I&D was admitted to the hospital on 11/21/2024 due to acute diverticulitis with possible abscess formation. #Acute diverticulitis with possible abscess formation #History of diverticulitis with peridiverticular absccess s/p I&D CT A/P showed acute sigmoid diverticulitis and possible early peridiverticular phlegmonous mass that is not amenable for drainage at this time, air in urinary bladder ? IV Zosyn 3.375 g q6hr ? Blood cultures negative ? Pain management with IV morphine 2 mg q4hr ? Dr. Melchor consulted, will do colonoscopy with fistulogram and possible surgery due to abscess. #Colovesical fistula #E. Coli UTI complicated by colovesical fistula Initially was complaining of dysuria, urgency, pelvic pain since past couple days prior to admission and had noticed air/bubbles during urination and some stool contents along with foul smell. I&D was completed in [place] in September of this year per patient. UA positive for bacteria ? Dr. Melchor consulted, appreciate recommendations ? Will undergo colonoscopy today - Continue Zosyn (11/30/2024-) ? Urine cultures showed E. Coli #History of anxiety ? Fluoxetine 20 mg p.o. daily #History of GERD ? Omeprazole 40 mg p.o. daily #History of hyperlipidemia ? No longer taking statin Disposition: Pending colonoscopy with fistulogram by general surgery. Diet: NPO GI prophylaxis: protonix DVT prophylaxis: SCDs Code: Full Case disclosed with Attending Dr. Can Kauffman PGY1 Disclaimer: Even though this this note was dictated by speech recognition and even though it was carefully revised there may still be minor errors in child care sitter due to voice recognition software.
--- NOTE | 2024-12-02 10:02 | PC.NURSE ---
As of 829 ok per to administer magnesium and potassium after patient returns from scheduled surgery
--- NOTE | 2024-12-02 10:50 | PD.SUROPNT ---
Date of Procedure 12/02/24 Pre Op Diagnosis Colovesicular fistula pelvic abscess diverticulitis Post Op Diagnosis Same. Procedure Cystogram and fistulogram under fluoroscopy control. On 12/02/2024 Colonoscopy and polypectomy from ascending colon. On 12/02/2024 Findings The retrograde cystogram and fistulogram failed of the bladder with 300 cc of diluted contrast with methylene blue. Fluoroscopy did not reveal any fistulous drainage from the bladder into the fistula and towards the colon. Patient has a pneumaturia as the fistulous opening is quite small. Colonoscopy revealed at 20 cm there is an inflamed area with a colonic side opening of the fistula without any drainage into the colon. There is also a polyp in the ascending colon that required hot snare polypectomy. Polyp appeared to be adenomatous. There were other diverticula in the sigmoid colon. There there were hemorrhoids. And there were no other findings. Procedure Description This patient was interviewed in the preop holding area and the procedure was explained to the patient risk benefits and alternatives were discussed and informed consent is obtained. Then patient is taken to the operating room and general anesthesia is administered. A three-way Watkins catheter is introduced into the bladder by the nursing staff. I used 100 mL of Isovue in 500 mL of normal saline and make it diluted contrast. We put in 5 cc of methylene blue in it so as to identify from the colon if it does connect with the colon readily. Fluoroscopy was used and I was not able to find any emptying of the bladder dye into the fistulous opening in AP view. After that the patient was turned on the left side down position. Again fluoroscopy was carried out and it did not reveal any drainage into the fistulous opening connecting to the bladder. That means that the fistulous opening within the bladder is very small. After completion of the cystoscopy fistulogram the bladder was drained out. After that the Watkins catheter was removed. Fiberoptic colonoscopy was carried out in this position and cecum was reached. Appendix was identified ileocecal valve was identified. There was a 6 mm polyp in the ascending colon one of the folds and hot snare polypectomy was carried out. The polyp was retrieved. There is no bleeding from the polypectomy site. The colon was examined upon insertion and withdrawal. There are no other findings other than a few diverticula in the sigmoid colon. She also had an inflamed area at 22 cm from the anal verge and it showed that there was inflamed tissue around that opening and that opening was going out of the colon. This likely is the colon side of fistula. There is no bleeding. The scope is gently removed. The internal/external hemorrhoids are noted. There were no other identifiable findings. The procedure was terminated. Patient tolerated the procedure very well complications none transferred to the recovery room in satisfactory condition. At this time my plan would be to continue with the IV antibiotics. I will place her on very low residue diet so as not to stimulate pressure in the sigmoid colon. After the white cell count comes down to normal and the culture from the urine is noted then she may be discharged home on long-term oral antibiotics. I will follow her in my office. Anesthesia GETA Drains None. Implants None. Pathology / specimen Other (Polypectomy polyp from ascending colon.) Estimated Blood Loss 0 Condition Stable Disposition PACU Surgeon Geremias Melchor MD Surgical Staff Operation Date: 12/02/24 09:15 Case Staff Anesthesiologist: Stefano Norton Additional Comment Julia BRICE community cultural development officer Juan Juan community cultural development officer Yisel surgical specialist theater technician
--- NOTE | 2024-12-02 10:50 | SUR.PHASEI ---
1044 patient is sleepy and arousable, breathing unabored, s/p cystogram, colonoscoy, fistuogram by Dr. Melchor, report received from Julia BRICE and Dr. Norton.
[2024-12-02] MEDS: fentaNYL CIT INJ 50 mCg/ML AMP 2ML IVP (11:06)
--- NOTE | 2024-12-02 11:31 | SUR.PHASEI ---
1131 patient is awake, alert, breathing unlabored, report given to Oriana BRICE, patient transferred back to room 359
[2024-12-02] MEDS: ONDANSETRON INJ 2 MG/ML INJ 2 ML 4 MG IVP (12:45)
[2024-12-02] MEDS: Magnesium Sulfate 2 GM Ivpb 2 GM/50 ML BAG IV (12:51)
[2024-12-02] MEDS: POTASSIUM CHLORIDE 20 mEq TABCR PO (12:55)
[2024-12-02] MEDS: ACETAMINOPHEN 325 MG TABLET 650 MG PO (15:26)
[2024-12-02] MEDS: SUMAtriptan 25 MG TABLET 50 MG PO (16:31)
[2024-12-02] MEDS: PANTOPRAZOLE 40 MG TABLET PO (21:31)
[2024-12-02] MEDS: ATORVASTATIN CALCIUM 10 MG TABLET PO (21:32)
[2024-12-03] VITALS: BP 95/68; PULSE 65; RESP 17; TEMP 36.2; O2SAT 94
[2024-12-03] MEDS: HYDROcodone/APAP 5/325 TABLET 1 TAB PO ×2 (01:43→10:24)
[2024-12-03 04:00] VITALS: BP 101/60; PULSE 70; RESP 18; TEMP 36.4; O2SAT 96
[2024-12-03] MEDS: PIPER/TAZO 3.375 GM PREMIX 3.375 GM/50 ML BAG IV (05:27)
[2024-12-03 06:33] LABS: Basophils % (Auto) 0 % (0-2.5); Eosinophils % (Auto) 0 % (0-10); Hematocrit 31.9 % (36.0-46.0); Hemoglobin 11.1 g/dL (12.0-16.0); Immature Granulocytes % (Auto) 1 % (0-0); Immature Granulocytes Auto 0.05 Thou/mm3 (0.00-0.00); Lymphocytes # (Auto) 1.8 Thou/mm3 (1.0-4.8); Lymphocytes % (Auto) 18 % (10-50); Mean Corpuscular HGB Conc 34.8 g/dl (31.0-37.0); Mean Corpuscular Hemoglobin 28.2 pg (25.0-35.0); Mean Corpuscular Volume 81 fL (80-100); Monocytes # (Auto) 0.8 Thou/mm3 (0.0-0.8); Monocytes % (Auto) 8 % (0-12); Neutrophils # (Auto) 7.4 Thou/mm3 (1.8-7.7); Neutrophils % (Auto) 74 % (37-80); Nucleated Red Blood Cell % 0 /100 WBC (0); Platelet Count 310 Thou/mm3 (140-440); RDW Standard Deviation 40.4 fL (36.4-46.3); Red Blood Count 3.94 Miln/mm3 (4.00-5.20)
[2024-12-03 06:47] LABS: Alanine Aminotransferase 41 U/L (10-49); Albumin, Serum 3.9 gm/dL (3.5-5.0); Albumin/Globulin Ratio 1.5 (1.2-2.2); Alkaline Phosphatase 76 U/L (46-116); Anion Gap 12 (7-16); Aspartate Amino Transferase 30 U/L (0-34); BUN/Creatinine Ratio 13 Ratio (12-20); Bilirubin,Total 0.3 mg/dL (0.3-1.2); Blood Urea Nitrogen 9 mg/dL (9-23); Calcium 8.5 mg/dL (8.3-10.6); Calcium (Corrected) 8.6 mg/dL (8.5-10.1); Carbon Dioxide 22.9 mMol/L (20.0-31.0); Chloride 106 mMol/L (98-107); Creatinine (Component) 0.7 mg/dL (0.6-1.3); Estimated Creatinine Clearance 98.5 mL/min (>60); Globulin 2.6 gm/dL (2.3-3.5); Glucose 107 mg/dL (74-106); Magnesium 2.2 mg/dL (1.6-2.6); Osmolality,Calculated 279 (275-295); Potassium 3.8 mMol/L (3.4-5.1); Sodium 141 mMol/L (136-145); Total Protein 6.5 gm/dL (5.7-8.2); eGFR > 60 See Note
[2024-12-03 07:36] VITALS: BP 94/65; PULSE 73; RESP 18; TEMP 36.4; O2SAT 96
[2024-12-03] MEDS: FLUoxetine HCL 10 MG CAPSULE 20 MG PO (08:20)
[2024-12-03] MEDS: CALCIUM CARBONATE 600 MG TABLET PO (08:20)
[2024-12-03] MEDS: PANTOPRAZOLE 40 MG TABLET PO (08:20)
--- NOTE | 2024-12-03 10:16 | ESDS_ITS ---
<Statement entered by Samuel North MD - 12/08/24 12:35> I reviewed above note and agree with findings and plans. I have also personally examined the patient with medicine team and went over assessment and plan with medical team including video editing intern and resident physician. Planned Discharge Date 12/03/24 DS: Providers Provider Date of admission: 11/29/24 23:18 Primary care physician: Geremias Melchor MD Admitting Provider: Maximus Serra MD Attending Provider on Admission: Maximus Serra MD Consults: 11/29/24 21:28 Consult to General Surgery Stat Comment: diverticulitis Consulting Provider: Geremias Melchor 12/02/24 14:34 Consult to Infectious Diseases Routine Comment: Consulting Provider: Jaiden Baker Attending Provider on DC: Milo Pelaez MD Discharging Provider: Milo Pelaez MD DS: Diagnosis Problem List Completed Was Problem List Reviewed/Reconciled?: Yes Hospital Course Hospital Course Hospital course: Lona Jose is a 49-year-old female with a past medical history of hyperlipidemia, GERD, anxiety, diverticulitis complicated by peridiverticular abscess, endometriosis with spread to colon s/p hysterectomy and salpingo- oophorectomy on 08/2024, status-post lysis of adhesions and bowel repair complicated by intra-abdominal abscess s/p I&D and now presents with colovesical fistula and acute diverticulitis. She was started on Zosyn and Dr. Melchor was consulted. Patient underwent cystogram and fistulogram under fluoroscopy control that did not reveal an obvious source of fistula. Fiberoptic colonoscopy was carried out afterwards and inflamed area 22 cm from the anal verge was seen with an opening out of the colon, which was likely the colon side of the fistula. Recommend to continue with IV antibiotics and placed on low residue diet denies seemingly pressure in the sigmoid colon. After white count comes down to normal and inflammation abdomen decreases, consider procedure at a later date and follow-up outpatient in 1 week. Throughout hospital course, vital signs remained stable with no fevers, WBC remained within normal limits, hemoglobin stable and CHEM panel remain largely unremarkable. Urine culture did grow MDR E. coli but sensitive to nitrofurantoin. Touched base with Dr. Melchor who was agreeable to send patient out on nitrofurantoin and will also send patient on additional 7 days of Augmentin for diverticulitis. Patient was instructed to follow-up with Dr. Melchor within 1 week of discharge and follow a low fiber diet. Diagnoses during admission: #Acute diverticulitis with possible abscess formation #History of diverticulitis with peridiverticular absccess s/p I&D #Colovesical fistula #E. Coli UTI complicated by colovesical fistula #History of anxiety #History of GERD #History of hyperlipidemia Discharge instructions: ? Take amoxicillin-clavulanate twice per day for 7 more days for your diverticulitis ? Take nitrofurantoin twice per day for 4 more days for your UTI ? Continue taking all other home medications as prescribed ? Follow-up with Dr. Melchor within 1 week of discharge ? Low fiber diet for 3 months ? Follow-up with PCP within 1-2 weeks of discharge ? If you do not have a PCP, you can follow-up at the [facility] (you can call [phone] to make an appointment) ? If you wish to follow-up with Dr. Pelaez, schedule appointment on Wednesday afternoons ? Return to ED if symptoms worsen or recur ----- Plan discussed with attending physician Dr. Can Pelaez MD PGY-1 Internal Medicine Time Spent with Patient Time attestation: Total time spent providing and/or coordinating discharge services: Time spent: Greater than 30 minutes Exam Vital Signs Temp Pulse Resp BP Pulse Ox O2 Del Method O2 Flow Rate 97.5 F 73 18 94/65 96 Room Air 4 12/03/24 07:36 12/03/24 07:36 12/03/24 07:36 12/03/24 07:36 12/03/24 07:36 12/03/24 07:36 12/02/24 11:10 Narrative Exam General: AOx3, no acute distress, able to speak full sentences HEENT: NC/AT, mucous membranes moist, bilateral sclera anicteric Cardiovascular: regular rate and rhythm, S1/S2 present, no murmurs appreciated Pulmonary: clear to auscultation bilaterally, no rales/rhonchi/wheezes Abdominal: tenderness in lower quadrants, soft, non-distended, no rebound/guarding Musculoskeletal: normal ROM, no peripheral edema Skin: warm and dry, intact, no rashes Neuro: CN II-XII intact, no focal deficits Discharge Plan Plan Patient Disposition: HOME (Self Care) Care Plan Goals: ? Take amoxicillin-clavulanate twice per day for 7 more days for your diverticulitis ? Take nitrofurantoin twice per day for 4 more days for your UTI ? Continue taking all other home medications as prescribed ? Follow-up with Dr. Melchor within 1 week of discharge ? Low fiber diet for 3 months ? Follow-up with PCP within 1-2 weeks of discharge ? If you do not have a PCP, you can follow-up at the [facility] (you can call [phone] to make an appointment) ? If you wish to follow-up with Dr. Pelaez, schedule appointment on Wednesday afternoons ? Return to ED if symptoms worsen or recur Prescriptions/Referrals Prescriptions/Med Rec: New nitrofurantoin macrocrystal 100 mg capsule 100 mg PO BID 4 Days Qty: 8 0RF Rx Instructions: must administer with a meal/food amoxicillin-pot clavulanate 875-125 mg tablet 1 tab PO BID 7 Days Qty: 14 0RF Continued hydrocodone-acetaminophen 10-325 mg tablet 1 tab PO Q6H MDD 4 PRN (Reason: pain) Qty: 20 0RF omeprazole 40 mg capsule,delayed release(DR/EC) 40 mg PO DAILY Patient Comments: take 1 capsule by mouth once daily BEFORE A MEAL fluoxetine 20 mg capsule 20 mg PO DAILY Patient Comments: take 1 capsule by mouth every morning acetaminophen [Acetaminophen Extra Strength] 500 mg tablet 1,000 mg PO Q6H PRN (Reason: pain) cholecalciferol (vitamin D3) [Vitamin D3] 50 mcg (2,000 unit) tablet 10,000 unit PO QWEEK sumatriptan succinate [Imitrex] 50 mg tablet 50 mg PO DAILY PRN (Reason: migraine headache) Patient Comments: prescribed by in [place] last hospitalization Rx Instructions: do not exceed 4 doses per 24 hrs No Action ciprofloxacin HCl [Cipro] 500 mg tablet 500 mg PO BID Qty: 20 0RF atorvastatin 40 mg tablet 10 mg PO HS Patient Comments: take 1 tablet by mouth once daily Nurtec ODT 75 mg tablet,disintegrating 75 mg PO QDAY Patient Comments: PLACE 1 TABLET BY TRANSLINGUAL ROUTE ON TOP OF THE TONGUE AND ALL... (REFER TO PRESCRIPTION NOTES). Referrals: Geremias Melchor MD [Primary Care Provider] - Patient/Caregiver Discharge Instructions Education Materials: Low-Fiber Diet Print Language: Colombian Stand Alone Forms: Katherin Award Info., Patient Portal Info Letter Discharge Order Discharge Orders: Discharge (Routine); Ordered 12/03/24 Ordered By: Milo Pelaez Quality Discharge Quality Measures VTE prophylaxis
[2024-12-03 12:00] VITALS: BP 106/69; PULSE 76; RESP 18; TEMP 36.4; O2SAT 96
== END 2024-12-03 12:23 | disposition home or self-care (01) | DRG 468 ==
LOC: SERX 21:37 → SERHOLD 11-30 00:33 → S3NX 11-30 02:02
PROVIDERS: Nurse Practitioner Family; Admitting Provider Student in an Organized Health Care Education/Training Program; Emergency Provider Emergency Medicine; PCP Specialist; Visit Provider Student in an Organized Health Care Education/Training Program
PROC: 0DBK8ZX Excision of Ascending Colon, Via Natural or Artificial Opening Endoscopic, Diagnostic (ICD-10-PCS; principal; 2024-12-02 09:00)
PROC: 0DJD8ZZ Inspection of Lower Intestinal Tract, Via Natural or Artificial Opening Endoscopic (ICD-10-PCS; CPT 45378; 2024-12-02 09:00)
DX: N32.1 Vesicointestinal fistula (principal); K21.9 Gastro-esophageal reflux disease without esophagitis; F41.9 Anxiety disorder, unspecified; E78.00 Pure hypercholesterolemia, unspecified; N39.0 Urinary tract infection, site not specified; K57.32 Diverticulitis of large intestine without perforation or abscess without bleeding; B96.20 Unspecified Escherichia coli [E. coli] as the cause of diseases classified elsewhere; E87.6 Hypokalemia; K57.20 Diverticulitis of large intestine with perforation and abscess without bleeding; K63.5 Polyp of colon; K64.2 Third degree hemorrhoids; K64.4 Residual hemorrhoidal skin tags; Z90.710 Acquired absence of both cervix and uterus; Z16.24 Resistance to multiple antibiotics; Z79.899 Other long term (current) drug therapy
CPT/HCPCS: 36415; 74177; 76000; 80053; 81001; 81025; 83605; 83690; 83735; 84100; 84145; 85025; 85652; 86140; 87040; 87077; 87086; 87186; 96365; 96366; 96375; 99285; A4217; A4649; J0744; J1100; J1650; J1885; J2270; J2371; J2405; J2470; J2543; J2704; J2765; J3010; J3475; J3490; J7030; Q9967; Q9968; A9270; J1805

== ENCOUNTER 2024-12-08 04:06 | Emergency (ER) | payer MEDICAID, SELFPAY ==
[2024-12-08 04:10] VITALS: BMI 32.9
[2024-12-08 05:41] VITALS: BP 129/86; PULSE 101; RESP 16; TEMP 36.7; O2SAT 98
--- NOTE | 2024-12-08 06:25 | PD.EDDENTL ---
ED Dental RME/HPI General Chief complaint: Dental/Oral/Throat Stated complaint: THROAT Time Seen by Provider: 12/08/24 06:15 Source: patient Arrival date/time: 12/08/24 04:06 49-year-old female with a history of hyperlipidemia presents to the emergency room with a chief complaint of sore throat and difficulty swallowing x 1 day Mode of arrival: ambulatory Limitations: no limitations Related Data Home Medications ?Medication ?Instructions ?Recorded ?Confirmed acetaminophen 500 mg tablet 1,000 mg PO Q6H PRN pain 08/23/24 11/30/24 (Acetaminophen Extra Strength) atorvastatin 40 mg tablet 10 mg PO HS 08/23/24 11/30/24 cholecalciferol (vitamin D3) 50 10,000 unit PO QWEEK 08/23/24 11/30/24 mcg (2,000 unit) tablet (Vitamin D3) fluoxetine 20 mg capsule 20 mg PO DAILY 08/23/24 11/30/24 omeprazole 40 mg capsule,delayed 40 mg PO DAILY 08/23/24 11/30/24 release rimegepant 75 mg disintegrating 75 mg PO QDAY 08/26/24 11/30/24 tablet (Nurtec ODT) sumatriptan succinate 50 mg tablet 50 mg PO DAILY PRN migraine 10/04/24 11/30/24 (Imitrex) headache Previous Rx's ?Medication ?Instructions ?Recorded ciprofloxacin HCl 500 mg tablet 500 mg PO BID #20 tabs 10/22/24 (Cipro) hydrocodone 10 mg-acetaminophen 1 tab PO Q6H PRN pain #20 tabs 10/22/24 325 mg tablet amoxicillin 875 mg-potassium 1 tab PO BID 7 days #14 tabs 12/03/24 clavulanate 125 mg tablet Allergies Allergy/AdvReac Type Severity Reaction Status Date / Time No Known Allergies Allergy Verified 12/08/24 04:14 Review of Systems Review of Systems Systems Reviewed: All systems reviewed, normal except as documented Constitutional Constitutional: Reports system reviewed and no additional complaints, except as documented, Denies fatigue, Denies fever(s), Denies headache(s) and Denies weakness Eyes Eyes: Reports system reviewed and no additional complaints, except as documented, Denies blurry vision and Denies change in vision ENT Ears, Nose, Mouth, and Throat: Reports system reviewed and no additional complaints, except as documented, Denies otalgia, Denies headache(s), Denies nasal congestion, Denies throat swelling and Denies vertigo Cardiovascular Cardiovascular: Reports system reviewed and no additional complaints, except as documented, Denies chest pain, Denies dyspnea and Denies dyspnea on exertion Respiratory Respiratory: Reports system reviewed and no additional complaints, except as documented, Denies chest congestion, Denies cough, Denies dyspnea, Denies dyspnea on exertion and Denies wheezing Gastrointestinal Gastrointestinal: Reports system reviewed and no additional complaints, except as documented, Denies abdominal pain, Denies cramping, Denies nausea and Denies vomiting Genitourinary Genitourinary: Reports system reviewed and no additional complaints, except as documented Musculoskeletal Musculoskeletal: Reports system reviewed and no additional complaints, except as documented and Denies back pain Integumentary/Breasts Skin/Breast: Reports system reviewed and no additional complaints, except as documented and Denies wounds Neurologic Neurologic: Reports system reviewed and no additional complaints, except as documented, Denies confusion, Denies headache(s), Denies lack of coordination, Denies vertigo and Denies weakness Psychiatric Psychiatric: Reports system reviewed and no additional complaints, except as documented, Denies anxiety, Denies confusion, Denies depression, Denies paranoia, Denies suicidal ideation and Denies tactile hallucinations Endocrine Endocrine: Reports system reviewed and no additional complaints, except as documented and Denies fatigue Hematologic/Lymphatic Hematologic/Lymphatic: Reports system reviewed and no additional complaints, except as documented and Denies lymphadenopathy Allergic/Immunologic Allergic/Immunologic: Reports system reviewed and no additional complaints, except as documented, Denies throat swelling, Denies urticaria and Denies wheezing ED Exam General Limitations: Present no limitations General appearance: Present alert and in no apparent distress Head Head exam: Present atraumatic Eye Eye exam: Present normal appearance, PERRL and EOMI ENT ENT exam: Present normal exam, normal oropharynx and mucous membranes moist Expanded ENT Exam External ear exam: Present normal external inspection Mouth exam: Present normal external inspection Teeth exam: Present normal inspection Throat exam: Present tonsillar erythema, tonsillomegaly and muffled voice; Absent tonsillar exudate, R peritonsillar mass or L peritonsillar mass Neck Neck exam: Present normal inspection, full ROM and trachea midline Chest Chest inspection: Present normal inspection and symmetric chest wall rise Respiratory Respiratory exam: Present normal lung sounds bilaterally Cardiovascular Cardiovascular exam: Present regular rate, normal rhythm and normal heart sounds Abdominal Exam Abdominal exam: Present soft and normal bowel sounds Extremities Exam Extremities exam: Present normal inspection and full ROM Back Exam Back exam: Present normal inspection and full ROM Neurological Exam Neurological exam: Present alert, oriented X3 and CN II-XII intact Psychiatric Psychiatric exam: Present normal affect and normal mood Skin Skin exam: Present warm, dry, intact and normal color Course Quality Measures none Orders Category Date Time Status CT Screening NOW Care 12/08/24 09:[address] soft tissue neck w con Stat Exams 12/08/24 09:26 Completed Strep A Rapid Stat Lab 12/08/24 06:45 Completed Dexamethasone Inj [Decadron Inj] Med 12/08/24 06:24 Discontinued 10 mg PO X1 ONE cefTRIAXone [Rocephin] 1,000 mg Med 12/08/24 08:25 Discontinued Lidocaine 1% 20 ml [Xylocaine 1% 20 ML] 2.1 ml IM X1 Vital Signs Vital signs: Vital Signs Temperature 98.1 F 12/08/24 05:41 Pulse Rate 101 H 12/08/24 05:41 Respiratory Rate 16 12/08/24 05:41 Blood Pressure 129/86 H 12/08/24 05:41 Pulse Oximetry (%) 98 12/08/24 05:41 Oxygen Delivery Method Room Air 12/08/24 05:41 O2 saturation 98% on room air Dental / Oral MDM Narrative MDM Narrative:: 49-year-old female with a history of hyperlipidemia presents to the emergency room with a chief complaint of sore throat and difficulty swallowing x 1 day Patient is hemodynamically stable and in no apparent distress. The patient is not tachycardic not tachypneic afebrile and her O2 saturation 98% on room air Physical examination shows an erythemic posterior pharynx. There is some swelling to the right tonsillar pillars. The patient states she is having difficulty swallowing A CT of the soft tissue neck was completed and was negative for any acute findings. There was some nodules on the thyroid that were found. The patient was educated to follow-up with her primary care provider for an ultrasound of her thyroid. During reevaluation patient states that with the steroids her breathing has improved. Patient is currently taking Augmentin for some colon and fistula issues. Patient was discharged and educated to follow-up with primary care provider in the next 24 to 48 hours and return to the emergency room for any evidence of worsening signs or symptoms Patient data External records reviewed:: [facility] previous records Clinical information provided by:: patient Social determinants that could affect healthcare access:: none Patient has the following chronic illnesses:: No chronic illness How is presenting disease/condition affected by chronic disease/condition?: no chronic disease Evaluation data The following diagnostics were reviewed and interpreted by me:: lab results and radiology exam(s) Lab and/or radiology exams considered but not ordered:: Labs and radiology exams considered and ordered Interpretation Summary: CT soft tissue neck-Findings: Symmetrical optic globes Maxillary antra are clear Symmetrical nasopharynx and oropharynx No tonsillar abscess No pathologic lymphadenopathy The larynx appears normal Multiple bilateral thyroid nodules, the largest in the right thyroid 14 mm Normal epiglottis No prevertebral soft tissue prominence Satisfactory alignment cervical vertebral bodies. IMPRESSION: No tonsillar abscess No pathologic lymphadenopathy Multiple thyroid nodules, consider dedicated thyroid sonography follow-up Medications / Prescriptions Medications or Prescriptions considered but not ordered:: Medication given Medication administrations:: Medication Administration History Discontinued Medications Ceftriaxone Sodium 1,000 mg/ (Lidocaine HCl 2.1 ml) 0 mg IM X1 ONE Stop: 12/08/24 08:26 Last Admin: 12/08/24 08:37 Dose: 1,000 mg Documented By: ELSIE Comments: 2.1 mls of lido Dexamethasone Sodium Phosphate (Dexamethasone Sod Phos Inj 10 Mg/Ml Vial) 10 mg PO X1 ONE Stop: 12/08/24 06:25 Last Admin: 12/08/24 06:42 Dose: 10 mg Documented By: LINNETTE Comments: given po as ordered not IM Medication given Consultations Consultation(s) initiated? (list below): No Diagnosis Dental Differential Diagnosis: other (Pharyngitis/peritonsillar abscess/uvulitis/epiglottitis) Most likely diagnosis given after review of the tests above:: Pharyngitis Admission Indicated Admission indicated?: not indicated Admission Request Was there a request for admission?: No Disposition Plan Disposition Plan: Discharge Discharge Attestation Discharge Attestation: The patient and all family members were given an opportunity to ask questions and understood the discharge instructions. Discharge instructions specifically effects, indications for sooner follow up or return to the emergency department, and the expected course of current diagnosis. Patient condition: Stable Discharge Plan Plan Patient Disposition: HOME (Self Care) Discharge Disposition comment: Stable Prescriptions/Referrals Prescriptions/Med Rec: No Action ciprofloxacin HCl [Cipro] 500 mg tablet 500 mg PO BID Qty: 20 0RF hydrocodone-acetaminophen 10-325 mg tablet 1 tab PO Q6H MDD 4 PRN (Reason: pain) Qty: 20 0RF amoxicillin-pot clavulanate 875-125 mg tablet 1 tab PO BID 7 Days Qty: 14 0RF omeprazole 40 mg capsule,delayed release(DR/EC) 40 mg PO DAILY Patient Comments: take 1 capsule by mouth once daily BEFORE A MEAL fluoxetine 20 mg capsule 20 mg PO DAILY Patient Comments: take 1 capsule by mouth every morning acetaminophen [Acetaminophen Extra Strength] 500 mg tablet 1,000 mg PO Q6H PRN (Reason: pain) cholecalciferol (vitamin D3) [Vitamin D3] 50 mcg (2,000 unit) tablet 10,000 unit PO QWEEK atorvastatin 40 mg tablet 10 mg PO HS Patient Comments: take 1 tablet by mouth once daily Nurtec ODT 75 mg tablet,disintegrating 75 mg PO QDAY Patient Comments: PLACE 1 TABLET BY TRANSLINGUAL ROUTE ON TOP OF THE TONGUE AND ALL... (REFER TO PRESCRIPTION NOTES). sumatriptan succinate [Imitrex] 50 mg tablet 50 mg PO DAILY PRN (Reason: migraine headache) Patient Comments: prescribed by md in [place] last hospitalization Rx Instructions: do not exceed 4 doses per 24 hrs Referrals: Anasatsiia Zhang NP [Primary Care Provider] - In 1 week Problem List Clinical Impression: Pharyngitis Patient/Caregiver Discharge Instructions Education Materials: ED Pharyngitis, Report Pending Additional Instructions: Por favor, consulte con carson m?dico de cabecera en las pr?ximas 24 a 48 horas. Se realiz? reji tomograf?a computarizada de jacinto y el resultado fue negativo para cualquier absceso periamigdalino. Sin embargo, se encontraron incidentalmente m?ltiples n?dulos tiroideos. Por favor, consulte con carson m?dico de cabecera para reji ecograf?a de tiroides para el manejo posterior. Ya est? tomando antibi?ticos para el colon. Luther de estos antibi?ticos tambi?n cubrir? la infecci?n de garganta. Por favor, contin?e fartun?ndolos seg?n lo prescrito. Si observa cualquier evidencia de empeoramiento de los signos o s?ntomas, acuda a urgencias de inmediato. Print Language: [place] Stand Alone Forms: Katherin Award Info., Patient Portal Info Letter PA/CIRCUIT BREAKER SUPERVISOR Supervising Physician PA/CIRCUIT BREAKER SUPERVISOR Supervising Physician: Dr. Sutherland
[2024-12-08] MEDS: DEXAMETHASONE SOD PHOS INJ 10 MG/ML VIAL PO (06:42)
[2024-12-08 07:54] LABS: Strep A Rapid Negative (Negative)
[2024-12-08] MEDS: cefTRIAXone 1,000 MG, LIDOCAINE 1% 20 ML 2.1 ML IM (08:37)
--- NOTE | 2024-12-08 09:26 | XR_ITS ---
Examination: CT soft tissue neck, with intravenous contrast. 2-D coronal reconstructions. 2-D sagittal reconstructions. Date and time of exam :December 08, 2024 1204 hours INDICATIONS: Throat pain today. Clinical diagnosis. Tonsillar abscess CTDI: vol (mGy):13.8 DLP: (mGycm):329 Technique: 1.25 mm axial sections of the neck of the obtained. Coronal and sagittal reconstructions have been obtained. Intravenous contrast administered 50 cc Isovue-370. Low dose protocols were performed. One or more of the following dose reduction techniques were used; automated exposure control, adjustment of the mA and/or KV according to patient size, use of iterative reconstruction technique. Findings: Symmetrical optic globes Maxillary antra are clear Symmetrical nasopharynx and oropharynx No tonsillar abscess No pathologic lymphadenopathy The larynx appears normal Multiple bilateral thyroid nodules, the largest in the right thyroid 14 mm Normal epiglottis No prevertebral soft tissue prominence Satisfactory alignment cervical vertebral bodies. IMPRESSION: No tonsillar abscess No pathologic lymphadenopathy Multiple thyroid nodules, consider dedicated thyroid sonography follow-up
== END 2024-12-08 13:48 | disposition home or self-care (01) ==
PROVIDERS: Nurse Practitioner Family; Emergency Provider Emergency Medicine; PCP Nurse Practitioner
DX: J02.9 Acute pharyngitis, unspecified (principal); E04.2 Nontoxic multinodular goiter
CPT/HCPCS: 70491; 87651; 96372; 96374; 99285; A4649; J0696; J1100; J3490; Q9967

== ENCOUNTER 2025-01-09 13:57 | Emergency (ER) | payer MEDICAID, SELFPAY ==
[2025-01-09 14:14] VITALS: BP 126/98; PULSE 95; RESP 18; TEMP 36.6; O2SAT 98; BMI 30.4
--- NOTE | 2025-01-09 14:26 | XR_ITS ---
Examination: CT abdomen and pelvis without contrast. Coronal 3-D reconstructions. Sagittal 2-D reconstructions. Date and time of exam:January 09, 2025 1434 hours Comparison November 29, 2024 INDICATIONS: Lower abdominal pain post hysterectomy 4 months ago, history sigmoid diverticulitis CTDI: vol (mGy): 8.74 DLP: (mGycm): 191 Technique: Axial images of the abdomen have been obtained, 3 mm slice thickness Intravenous contrast material has not been administered. Low dose protocols were performed. One or more of the following dose reduction techniques were used; automated exposure control, adjustment of the mA and/or KV according to patient size, use of iterative reconstruction technique. Findings: No focal liver or splenic lesions Absent gallbladder No pancreatic or adrenal mass. No renal or ureteral calculi, no hydronephrosis Aorta normal size. Normal appendix Colonic diverticulosis Axial image 171 demonstrates mild acute sigmoid diverticulitis Absent uterus Air in the urinary bladder Intact osseous structures IMPRESSION: Mild acute sigmoid diverticulitis, no peridiverticular abscess
[2025-01-09 14:58] LABS: Basophils # (Auto) 0.0 Thou/mm3 (0.0-0.2); Basophils % (Auto) 0 % (0-2.5); Eosinophils # (Auto) 0.1 Thou/mm3 (0.0-0.5); Eosinophils % (Auto) 1 % (0-10); Hematocrit 37.9 % (36.0-46.0); Hemoglobin 13.1 g/dL (12.0-16.0); Immature Granulocytes Auto 0.04 Thou/mm3 (0.00-0.00); Lymphocytes # (Auto) 2.8 Thou/mm3 (1.0-4.8); Lymphocytes % (Auto) 28 % (10-50); Mean Corpuscular HGB Conc 34.6 g/dl (31.0-37.0); Mean Corpuscular Hemoglobin 27.9 pg (25.0-35.0); Mean Corpuscular Volume 81 fL (80-100); Monocytes # (Auto) 0.7 Thou/mm3 (0.0-0.8); Monocytes % (Auto) 7 % (0-12); Neutrophils # (Auto) 6.2 Thou/mm3 (1.8-7.7); Neutrophils % (Auto) 63 % (37-80); Nucleated Red Blood Cell # 0.00 Thou/mm3 (0.00-0.00); Nucleated Red Blood Cell % 0 /100 WBC (0); Platelet Count 398 Thou/mm3 (140-440); RDW Standard Deviation 41.9 fL (36.4-46.3); Red Blood Count 4.69 Miln/mm3 (4.00-5.20); White Blood Count 9.9 Thou/mm3 (3.6-11.0)
[2025-01-09 15:16] LABS: Alanine Aminotransferase 29 U/L (10-49); Albumin, Serum 4.4 gm/dL (3.5-5.0); Albumin/Globulin Ratio 1.6 (1.2-2.2); Alkaline Phosphatase 84 U/L (46-116); Anion Gap 13 (7-16); Aspartate Amino Transferase 24 U/L (0-34); BUN/Creatinine Ratio 14 Ratio (12-20); Bilirubin,Total 0.4 mg/dL (0.3-1.2); Blood Urea Nitrogen 10 mg/dL (9-23); Calcium 9.1 mg/dL (8.3-10.6); Calcium (Corrected) 9.1 mg/dL (8.5-10.1); Carbon Dioxide 23.2 mMol/L (20.0-31.0); Chloride 104 mMol/L (98-107); Creatinine (Component) 0.7 mg/dL (0.6-1.3); Estimated Creatinine Clearance 100.9 mL/min (>60); Globulin 2.8 gm/dL (2.3-3.5); Glucose 88 mg/dL (74-106); Lipase 45 U/L (12-53); Osmolality,Calculated 277 (275-295); Potassium 3.8 mMol/L (3.4-5.1); Sodium 140 mMol/L (136-145); Total Protein 7.2 gm/dL (5.7-8.2); eGFR > 60 See Note
[2025-01-09 15:31] LABS: Collection Type, Urine Clean Catch
[2025-01-09 15:51] LABS: HCG Qualitative,Urine Negative
[2025-01-09 16:02] LABS: Bacteria,Urine 4+; Bilirubin,Urine Negative (Negative); Blood,Urine 2+ (Negative); Clarity,Urine Turbid (Clear/Hazy); Color,Urine Lt-Yellow (Lt Yel-Yel); Glucose, Urine Negative (Negative); Ketones,Urine Negative (Negative); Leukocyte Esterase,Urine Positive (Negative); Nitrite,Urine Negative (Negative); PH,Urine 6.5 (5.0-7.0); Protein,Urine Negative (Neg - Trace); RBC,Urine 7 /hpf (0-3); Specific Gravity,Urine 1.004 (1.001-1.035); Squamous Epithelial Cell,Urine 2 /hpf (0-5); Urobilinogen,Urine Negative mg/dL (0.0-1.0); WBC,Urine 27 /hpf (0-5)
[2025-01-09] MEDS: MORPHINE SULF INJ 10 MG/ML VIAL 4 MG IM (16:15)
[2025-01-09] MEDS: ONDANSETRON ODT 4 MG TABRAP PO (16:17)
--- NOTE | 2025-01-09 17:35 | PD.EDABDPN ---
ED Abdominal Pain RME/HPI General Chief Complaint: Abdominal Pain Stated complaint: SEVERE ABD PAIN 04/13 SINCE DECEMBER 24. Time seen by provider: 01/09/25 14:15 Arrival date/time: 01/09/25 13:57 This is a case of 49-year-old female with history of hysterectomy colovesicular fistula and with diverticulitis came in in the emergency room on and off abdominal pain for 16 days associated with nausea vomiting persistence of the symptoms test patient decided to start consult here in the emergency room denies constipation diarrhea or blood in stool pain is located more in in lower abdomen cramping in character Limitations: no limitations Related Data Home Medications ?Medication ?Instructions ?Recorded ?Confirmed acetaminophen 500 mg tablet 1,000 mg PO Q6H PRN pain 08/23/24 11/30/24 (Acetaminophen Extra Strength) atorvastatin 40 mg tablet 10 mg PO HS 08/23/24 11/30/24 cholecalciferol (vitamin D3) 50 10,000 unit PO QWEEK 08/23/24 11/30/24 mcg (2,000 unit) tablet (Vitamin D3) fluoxetine 20 mg capsule 20 mg PO DAILY 08/23/24 11/30/24 omeprazole 40 mg capsule,delayed 40 mg PO DAILY 08/23/24 11/30/24 release rimegepant 75 mg disintegrating 75 mg PO QDAY 08/26/24 11/30/24 tablet (Nurtec ODT) sumatriptan succinate 50 mg tablet 50 mg PO DAILY PRN migraine 10/04/24 11/30/24 (Imitrex) headache Previous Rx's ?Medication ?Instructions ?Recorded ciprofloxacin HCl 500 mg tablet 500 mg PO BID #20 tabs 10/22/24 (Cipro) hydrocodone 10 mg-acetaminophen 1 tab PO Q6H PRN pain #20 tabs 10/22/24 325 mg tablet ciprofloxacin HCl 500 mg tablet 500 mg PO BID 10 days #20 tabs 01/09/25 (Cipro) metronidazole 500 mg tablet 500 mg PO Q8H 10 days #30 tabs 01/09/25 ondansetron 4 mg disintegrating 4 mg PO Q8H PRN nausea and 01/09/25 tablet vomiting #20 tabs tramadol 50 mg tablet 50 mg PO Q8H PRN pain #10 tabs 01/09/25 Allergies Allergy/AdvReac Type Severity Reaction Status Date / Time lactose Allergy Severe Abdominal Verified 01/09/25 14:05 Pain Review of Systems Review of Systems Systems Reviewed: All systems reviewed, normal except as documented Constitutional Constitutional: Reports system reviewed and no additional complaints, except as documented and Reports as per HPI ENT Ears, Nose, Mouth, and Throat: Denies dysphagia and Denies odynophagia Cardiovascular Cardiovascular: Reports system reviewed and no additional complaints, except as documented and Reports as per HPI Gastrointestinal Gastrointestinal: Reports system reviewed and no additional complaints, except as documented, Reports as per HPI, Reports abdominal pain, Denies belching, Denies bloating, Denies change in bowel habits, Denies change in stool character, Denies coffee ground emesis, Denies constipation, Denies cramping, Denies diarrhea, Denies dyspepsia, Denies dysphagia, Denies early satiety, Denies excessive flatus, Denies fecal incontinence, Denies heartburn, Denies hematemesis, Denies hematochezia, Denies loose stools, Denies melena, Reports nausea, Denies odynophagia, Denies tenesmus and Reports vomiting Genitourinary Genitourinary: Reports system reviewed and no additional complaints, except as documented and Reports as per HPI Neurologic Neurologic: Reports system reviewed and no additional complaints, except as documented and Reports as per HPI Past Medical History Past Medical History NEUROLOGIC: Positive Neurological Disorders and Migraine; Negative Seizures CARDIAC: Positive Hypercholesterolemia; Negative Cardiac Disorders or Congestive Heart Failure RESPIRATORY: Negative Chronic Obstructive Pulmonary Disease (COPD) or Asthma GASTROINTESTINAL: Positive Gastrointestinal Disorders, Diverticulitis, Gastroesophageal Reflux Disease and Obesity; Negative Hepatitis GENITOURINARY: Negative Genitourinary Disorders or Renal Disease REPRODUCTIVE: Positive Previous Pregnancies MUSCULOSKELETAL: Positive Musculoskeletal Disorders ENDOCRINE: Negative Endocrine Disorders, Diabetes Mellitus Type 1 or Diabetes Mellitus Type 2 HEMATOLOGIC: Negative Blood Disorders or Sickle Cell Disease PSYCHO/SOCIAL: Positive Anxiety OTHER HISTORY: Positive Hospitalization; Negative Autoimmune Disease, Shingles, Falls, Blood Transfusions, Blood Transfusion Reaction, Anesthesia Reactions or Cancer Family History FAMILY HISTORY: Positive Family Cardiac Disorders and Family Surgery (Hysterectomy); Negative Family Psychiatric Problems, Family Respiratory Disorders, Family Gastrointestinal Problems, Family Cancer or Family Anesthesia Reaction Surgical History SURGICAL: Positive Abdominal Surgery, Hysterectomy and Section Social History SMOKING STATUS: Never smoker SECOND HAND EXPOSURE: No SUBSTANCE USE: does not use ED Exam General Limitations: Present no limitations General appearance: Present alert, in no apparent distress and other (Awake alert oriented x 4 not in distress nontoxic looking well-hydrated well-nourished) Head Head exam: Present atraumatic Eye Eye exam: Present normal appearance, PERRL and EOMI ENT ENT exam: Present normal exam, normal oropharynx and mucous membranes moist Neck Neck exam: Present normal inspection, full ROM and trachea midline; Absent tenderness, meningismus, lymphadenopathy or thyromegaly Chest Chest inspection: Present normal inspection and symmetric chest wall rise; Absent tenderness, rash or abscess Respiratory Respiratory exam: Present normal lung sounds bilaterally; Absent respiratory distress, wheezes, stridor, accessory muscle use or prolonged expiratory phase Cardiovascular Cardiovascular exam: Present regular rate, normal rhythm and normal heart sounds; Absent bradycardia, tachycardia, irregular rhythm, systolic murmur or clicks Abdominal Exam Abdominal exam: Present soft, tenderness (Tenderness on right lower and left lower quadrant) and normal bowel sounds; Absent distention, guarding, rebound, rigidity, diminished bowel sounds, hyperactive bowel sounds, hypoactive bowel sounds, organomegaly, psoas sign, obturator sign, Nails's sign, Rovsing's sign or tenderness at McBurney's Point Extremities Exam Extremities exam: Present normal inspection and full ROM Back Exam Back exam: Present normal inspection and full ROM Neurological Exam Neurological exam: Present alert, oriented X3, CN II-XII intact, normal gait and reflexes normal; Absent motor sensory deficit Psychiatric Psychiatric exam: Present normal affect and normal mood Skin Skin exam: Present warm, dry, intact, normal color and other (Excellent skin turgor) Course Quality Measures none Orders Category Date Time Status CT abdomen pelvis wo con Stat Exams 01/09/25 14:26 Completed CBC Stat Lab 01/09/25 14:41 Completed Comprehensive Metabolic Panel Stat Lab 01/09/25 14:41 Completed HCG Qualitative,Urine Stat Lab 01/09/25 15:26 Completed Lipase Stat Lab 01/09/25 14:41 Completed Urinalysis Stat Lab 01/09/25 15:26 Completed Morphine Inj Med 01/09/25 14:35 Discontinued 4 mg IM X1 ONE Ondansetron Inj [Zofran Inj] Med 01/09/25 15:31 Discontinued 4 mg IVP X1 ONE Ondansetron Odt [Zofran Odt] Med 01/09/25 16:12 Discontinued 4 mg PO X1 ONE Sodium Chloride 0.9% 1000 ml [Ns] 1,000 ml Med 01/09/25 15:28 Discontinued IV 999 mls/hr cefTRIAXone [Rocephin] 2 gm Med 01/09/25 15:29 Discontinued SODIUM CHLORIDE 0.9% (Popper) [Ns 0.9% (P)] 50 ml IV X1 metroNIDAZOLE/NS 500 MG IVPB [Flagyl 500 mg IV] Med 01/09/25 15:30 Discontinued 500 mg in 100 ml IV X1 Vital Signs Vital signs: Vital Signs Temperature 97.9 F 01/09/25 14:14 Pulse Rate 95 01/09/25 14:14 Respiratory Rate 18 01/09/25 14:14 Blood Pressure 126/98 H 01/09/25 14:14 Pulse Oximetry (%) 98 01/09/25 14:14 Oxygen Delivery Method Room Air 01/09/25 14:14 Patient is awake alert not in distress afebrile not tachycardic not tachypneic BP stable not hypoxic oxygen saturation is 98% in room air Abdominal Pain MDM MDM Narrative MDM Narrative:: This is a case of 49-year-old female with history of hysterectomy colovesicular fistula and with diverticulitis came in in the emergency room on and off abdominal pain for 16 days associated with nausea vomiting persistence of the symptoms test patient decided to start consult here in the emergency room denies constipation diarrhea or blood in stool pain is located more in in lower abdomen cramping in character physical examination patient is awake alert oriented not in distress nontoxic looking well-hydrated well-nourished lungs sound is clear no crackles no rales no retraction no stridor abdominal exam benign nonsurgical mild tenderness on both lower quadrant of the abdomen no guarding no rebound no rigidity negative psoas negative straight and negative Rovsing sign, manage negative Nails sign negative CVA tenderness blood test showed no leukocytosis no anemia kidney and liver function is normal electrolytes lipase normal urinalysis showed WBC and RBC in urine suggestive of urinary tract infection CT scan showed a mild sigmoid diverticulitis with no peridiverticular abscess at this point I discussed with Dr. Turcios GI consult discussed patient condition history and physical examination since the blood test is normal and mild diverticulitis give antibiotic and discharge patient to follow-up with the workers' compensation hearings officer for possible colonoscopy after giving morphine and Zofran patient condition markedly improved abdominal exam benign no tenderness patient verbalized resolve of the pain no recurrence of vomiting patient was also given a dose of ceftriaxone here and metronidazole and will discharge with metronidazole and ciprofloxacin for urinary tract infection and diverticulitis patient will follow-up with PCP in 2 days for reevaluation return precaution for any worsening symptoms or any emergent concern was also discussed Patient was discharged with comfortable condition walking with stable gait. Patient verbalized no further complains explained diagnosis and answered patient question. Patient is comfortable with the proposed management plan including the need to follow up with his/her primary care physician and any specialist if applicable Discussed patient for any urgent condition or worsening sx, He/She needed to go to emergency room immediately or call 911. Patient acknowledge the responsibility to follow up as instructed and to monitor her/his symptoms. For any persistence of the symptoms for more than 3-5 days return precaution advised. Discussed the result of the test and was given printed discharge instruction Patient data External records reviewed:: [facility] previous records Clinical information provided by:: patient Social determinants that could affect healthcare access:: none Patient has the following chronic illnesses:: None How is presenting disease/condition affected by chronic disease/condition?: no chronic disease Evaluation data The following diagnostics were reviewed and interpreted by me:: lab results and radiology exam(s) Lab and/or radiology exams considered but not ordered:: Reviewed Interpretation Summary: Reviewed Medications / Prescriptions Medications or Prescriptions considered but not ordered:: Given Medication administrations:: Medication Administration History Discontinued Medications Sodium Chloride (Ns) 1,000 mls @ 999 mls/hr IV .Q1H1M ONE Stop: 01/09/25 16:28 Ceftriaxone Sodium 2 gm/ (Sodium Chloride) 50 mls @ 100 mls/hr IV X1 ONE Stop: 01/09/25 15:58 Metronidazole (Flagyl 500 Mg Iv) 500 mg in 100 mls @ 200 mls/hr IV X1 ONE Stop: 01/09/25 15:59 Morphine Sulfate (Morphine Sulf Inj 10 Mg/Ml Vial) 4 mg IM X1 ONE Stop: 01/09/25 14:36 Last Admin: 01/09/25 16:15 Dose: 4 mg Documented By: TAWNYA Ondansetron HCl (Ondansetron Inj 2 Mg/Ml Inj 2 Ml) 4 mg IVP X1 ONE; Protocol Stop: 01/09/25 15:32 Last Admin: 01/09/25 16:14 Dose: Not Given Documented By: LP Non-Admin Reason: PO ORDERED Ondansetron HCl (Ondansetron Odt 4 Mg Tabrap) 4 mg PO X1 ONE; Protocol Stop: 01/09/25 16:13 Last Admin: 01/09/25 16:17 Dose: 4 mg Documented By: LP Given Consultations Consultation(s) initiated? (list below): Yes Consultation #1 (Physician, Specialty, Details): Dr. Turcios discharge patient and give antibiotic follow-up with GI specialist Diagnosis Differential diagnosis abdominal pain: abdominal pain, acute appendicitis, calculus of kidney and diverticulitis Most likely diagnosis given after review of the tests above:: Acute diverticulitis urinary tract infection Admission Indicated Admission indicated?: not indicated Explain why admission is indicated or not indicated:: Not indicated Admission Request Was there a request for admission?: No Admission Attestation Admission request attestation: Not indicated Disposition Plan Disposition Plan: Discharge Discharge Attestation Discharge Attestation: The patient and all family members were given an opportunity to ask questions and understood the discharge instructions. Discharge instructions specifically effects, indications for sooner follow up or return to the emergency department, and the expected course of current diagnosis. Patient condition: Stable Discharge Plan Plan Patient Disposition: HOME (Self Care) Patient condition on transfer: Stable Prescriptions/Referrals Prescriptions/Med Rec: New metronidazole 500 mg tablet 500 mg PO Q8H 10 Days Qty: 30 0RF ciprofloxacin HCl [Cipro] 500 mg tablet 500 mg PO BID 10 Days Qty: 20 0RF ondansetron 4 mg tablet,disintegrating 4 mg PO Q8H PRN (Reason: nausea and vomiting) Qty: 20 0RF tramadol 50 mg tablet 50 mg PO Q8H MDD max4 tabs per day PRN (Reason: pain) Qty: 10 0RF No Action ciprofloxacin HCl [Cipro] 500 mg tablet 500 mg PO BID Qty: 20 0RF hydrocodone-acetaminophen 10-325 mg tablet 1 tab PO Q6H MDD 4 PRN (Reason: pain) Qty: 20 0RF omeprazole 40 mg capsule,delayed release(DR/EC) 40 mg PO DAILY Patient Comments: take 1 capsule by mouth once daily BEFORE A MEAL fluoxetine 20 mg capsule 20 mg PO DAILY Patient Comments: take 1 capsule by mouth every morning acetaminophen [Acetaminophen Extra Strength] 500 mg tablet 1,000 mg PO Q6H PRN (Reason: pain) cholecalciferol (vitamin D3) [Vitamin D3] 50 mcg (2,000 unit) tablet 10,000 unit PO QWEEK atorvastatin 40 mg tablet 10 mg PO HS Patient Comments: take 1 tablet by mouth once daily Nurtec ODT 75 mg tablet,disintegrating 75 mg PO QDAY Patient Comments: PLACE 1 TABLET BY TRANSLINGUAL ROUTE ON TOP OF THE TONGUE AND ALL... (REFER TO PRESCRIPTION NOTES). sumatriptan succinate [Imitrex] 50 mg tablet 50 mg PO DAILY PRN (Reason: migraine headache) Patient Comments: prescribed by md in [place] last hospitalization Rx Instructions: do not exceed 4 doses per 24 hrs Referrals: Marito ([facility] [Primary Care Provider] - In 1 week Problem List Clinical Impression: Abdominal pain, Diverticulitis, UTI (urinary tract infection) Patient/Caregiver Discharge Instructions Education Materials: Abdominal Pain, Urinary Tract Infections in Women, ED Diverticulitis Additional Instructions: Follow-up with your primary care physician in 2 days for reevaluation antibiotic forward to workers' compensation hearings officer for further evaluation and treatment of diverticulitis for possible colonoscopy worsening symptoms persistence of symptoms recurrence of the symptoms call 911 or go to the nearest emergency room take your medication and finish the course of antibiotic increase water intake keep hydrated Pedialyte Gatorade for every bouts of vomiting soft diet is advised Print Language: New Zealander Stand Alone Forms: Katherin Award Info., Patient Portal Info Letter PA/MADELAINE Supervising Physician PA/MADELAINE Supervising Physician: dr austin
[2025-01-09] MEDS: SODIUM CHLORIDE 0.9% 1000 ML 1,000 ML 999 ML IV (17:52)
[2025-01-09] MEDS: cefTRIAXone 2 GM in SODIUM CHLORIDE 0.9% (Popper) 50 ML IV (17:52)
[2025-01-09] MEDS: metroNIDAZOLE/NS 500 MG IVPB 500 MG/100 ML BAG 200 MG IV (18:28)
== END 2025-01-09 19:34 | disposition home or self-care (01) ==
PROVIDERS: Nurse Practitioner Family; Emergency Provider Family Medicine; PCP Physician Assistant
DX: K57.32 Diverticulitis of large intestine without perforation or abscess without bleeding (principal); N39.0 Urinary tract infection, site not specified
CPT/HCPCS: 36415; 74176; 80053; 81001; 81025; 83690; 85025; 93005; 96365; 96366; 96372; 99283; J0696; J2270; J3490; J7030; J7050; Q0162; J1836

== ENCOUNTER 2025-02-12 20:05 | Inpatient (IN) | payer MEDICAID, SELFPAY ==
[2025-02-07 13:27] VITALS: BMI 32.9
[2025-02-07 14:12] LABS: Collection Type, Urine Clean Catch
[2025-02-07 14:24] LABS: Basophils # (Auto) 0.0 Thou/mm3 (0.0-0.2); Basophils % (Auto) 1 % (0-2.5); Eosinophils # (Auto) 0.2 Thou/mm3 (0.0-0.5); Eosinophils % (Auto) 2 % (0-10); Hematocrit 38.0 % (36.0-46.0); Hemoglobin 12.3 g/dL (12.0-16.0); Immature Granulocytes Auto 0.05 Thou/mm3 (0.00-0.00); Lymphocytes # (Auto) 2.9 Thou/mm3 (1.0-4.8); Lymphocytes % (Auto) 33 % (10-50); Mean Corpuscular HGB Conc 32.4 g/dl (31.0-37.0); Mean Corpuscular Hemoglobin 27.7 pg (25.0-35.0); Mean Corpuscular Volume 86 fL (80-100); Monocytes # (Auto) 0.6 Thou/mm3 (0.0-0.8); Monocytes % (Auto) 7 % (0-12); Neutrophils # (Auto) 4.9 Thou/mm3 (1.8-7.7); Neutrophils % (Auto) 56 % (37-80); Nucleated Red Blood Cell # 0.00 Thou/mm3 (0.00-0.00); Nucleated Red Blood Cell % 0 /100 WBC (0); Platelet Count 364 Thou/mm3 (140-440); RDW Standard Deviation 46.3 fL (36.4-46.3); Red Blood Count 4.44 Miln/mm3 (4.00-5.20); White Blood Count 8.6 Thou/mm3 (3.6-11.0)
[2025-02-07 14:32] LABS: Partial Thromboplastin Time 30.8 Seconds (22.0-36.0)
[2025-02-07 14:35] LABS: Alanine Aminotransferase 25 U/L (10-49); Albumin, Serum 4.3 gm/dL (3.5-5.0); Albumin/Globulin Ratio 1.8 (1.2-2.2); Alkaline Phosphatase 74 U/L (46-116); Anion Gap 10 (7-16); Aspartate Amino Transferase 19 U/L (0-34); BUN/Creatinine Ratio 19 Ratio (12-20); Bilirubin,Total 0.3 mg/dL (0.3-1.2); Blood Urea Nitrogen 15 mg/dL (9-23); Calcium 8.6 mg/dL (8.3-10.6); Calcium (Corrected) 8.6 mg/dL (8.5-10.1); Carbon Dioxide 24.0 mMol/L (20.0-31.0); Chloride 104 mMol/L (98-107); Creatinine (Component) 0.8 mg/dL (0.6-1.3); Estimated Creatinine Clearance 85.1 mL/min (>60); Globulin 2.4 gm/dL (2.3-3.5); Glucose 123 mg/dL (74-106); Osmolality,Calculated 277 (275-295); Potassium 3.7 mMol/L (3.4-5.1); Sodium 138 mMol/L (136-145); Total Protein 6.7 gm/dL (5.7-8.2); eGFR > 60 See Note
[2025-02-07 14:38] LABS: Bilirubin,Urine Negative (Negative); Blood,Urine 3+ (Negative); Color,Urine Yellow (Lt Yel-Yel); Glucose, Urine Negative (Negative); Hyaline Casts,Urine < 1 /hpf (0-1); Ketones,Urine Negative (Negative); Leukocyte Esterase,Urine Positive (Negative); Nitrite,Urine Negative (Negative); PH,Urine 6.0 (5.0-7.0); Protein,Urine 1+ (Neg - Trace); RBC,Urine 1 /hpf (0-3); Specific Gravity,Urine 1.031 (1.001-1.035); Squamous Epithelial Cell,Urine < 1 /hpf (0-5); Urobilinogen,Urine Negative mg/dL (0.0-1.0); WBC,Urine < 1 /hpf (0-5)
[2025-02-07 14:41] LABS: Clarity,Urine Cloudy (Clear/Hazy)
[2025-02-12] VITALS (17 sets, daily range): BP systolic 111–130; BP diastolic 71–94; PULSE 68–106; RESP 12–23; TEMP 36.3–36.8; O2SAT 92–100; BMI 32.6; BMI 32.8
--- NOTE | 2025-02-12 10:51 | SUR.PREOP ---
Patient expressed gratitude for prayer before their procedure.
--- NOTE | 2025-02-12 15:07 | SUR.OPER ---
Sister (Felicitas) updated on case status/progress via phone by Garo BRICE at 1505.
[2025-02-12] MEDS: ACETAMINOPHEN IVPB 1,000 MG/100 ML VIAL 250 MG IV (16:29)
--- NOTE | 2025-02-12 16:34 | SUR.PHASEI ---
1601: Pt received in Pacu via hospital bed. Pt obtunded. Oral airway in place. Resp even, unlabored. VS stable. Dressing to abdomen covered with adbdominal binder which is clean, dry, intact. Watkins to gravity draining clear dark yellow urine. 1613: Oral airway dc'd. Resp even, unlabored.
--- NOTE | 2025-02-12 16:37 | SUR.PHASEI ---
1629: Pt grimacing with occasional moaning. Pain rated at 1/3. Acetaminophen IV started. VS stable. Resp even, unlabored. Abdominal binder remains dry, clean, intact.
--- NOTE | 2025-02-12 17:01 | SUR.PHASEII ---
1700: Report to Bethany BRICE.
[2025-02-12] MEDS: fentaNYL CIT INJ 50 mCg/ML AMP 2ML IVP (17:05)
[2025-02-12] MEDS: HYDROmorphone 1 MG/ML PCA SYRINGE 30ML PCA (17:45)
--- NOTE | 2025-02-12 19:30 | SUR.PHASEII ---
1700: pt drowsy but arouses to voice, breathing unlabored, dressing to abdomen covered with abdominal binder which is clean, dry, intact. Watkins to gravity draining clear dark yellow urine. report from Ingrid BRICE 1749: pt tolerating oral fluids without difficulty swallowing or n/v, family at bedside 1929: pt drowsy but arouses to voice, breathing unlabored, dressing to abdomen covered with abdominal binder which is clean, dry, intact. Watkins to gravity draining clear dark yellow urine. report called to Jacqueline BRICE, pt tranferred to room at this time.
--- NOTE | 2025-02-12 20:00 | PC.NURSE ---
pt received from PACU. pt in room 374 [id number].
[2025-02-12] MEDS: ATORVASTATIN CALCIUM 20 MG TABLET 10 MG PO (20:32)
[2025-02-12] MEDS: GABAPENTIN 100 MG CAPSULE 200 MG PO (20:32)
[2025-02-12] MEDS: KETOROLAC INJ 30 MG/ML VIAL IVP ×2 (20:32→23:29)
[2025-02-12] MEDS: PANTOPRAZOLE 40 MG TABLET PO (20:33)
[2025-02-12] MEDS: RINGERS LACTATED 1000 ML 1,000 ML 60 ML IV (23:24)
[2025-02-13] VITALS (9 sets, daily range): BP systolic 95–122; BP diastolic 55–78; PULSE 86–106; RESP 15–18; TEMP 36.1–36.7; O2SAT 94–96
[2025-02-13] MEDS: KETOROLAC INJ 30 MG/ML VIAL IVP ×4 (05:10→23:27)
[2025-02-13] MEDS: PANTOPRAZOLE 40 MG TABLET PO ×2 (08:16→21:46)
[2025-02-13] MEDS: GABAPENTIN 100 MG CAPSULE 200 MG PO ×2 (08:16→21:46)
[2025-02-13] MEDS: AMOXICILLIN/POT CLAV 875 TABLET 1 TAB PO (08:16)
--- NOTE | 2025-02-13 10:15 | PC.SS ---
Patient Lona Damon is a 50-year-old female admitted for Resection of Sigmoid. SS met with patient at bedside to complete initial assessment and confirm demographic information. Patient identifies her Lew Rod [phone] as her surrogate decision maker. Patient reports she is able to complete all ADL?s independently. Patient does not utilize any source of DME to assist with ambulation. Patient's PCP is Angely Devi. Pharmacy of choice is [facility]. Discharge options discussed and the patient wishes to return home.? Family will provide transportation upon DC. No further intervention required at this time, social work manager would be available to address any further concerns. Discharge Plan: Home Contact: Lew
--- NOTE | 2025-02-13 13:47 | ESOP_ITS ---
Date of Procedure 02/12/25 Pre Op Diagnosis Colovesicular fistula Post Op Diagnosis Same Procedure Exploratory laparotomy resection of the sigmoid colon and coloproctostomy by EEA resection of colovesicular fistula and repair of bladder dated February 12, 2025 Findings This patient has had a colovesicular fistula with air and feces coming out in the urine. Upon exploration she was found to have a segment of the sigmoid colon that was markedly inflamed and there was a fistula connected to the bladder between the sigmoid colon and urinary bladder. I dissected the fistula and colon from the bladder the opening in the colon was seen very well as an open opening and then there was opening in the bladder. At this time we inflated the bladder to about 600 cc however there was no leakage from the bladder side. The sigmoid colon side had a fistula in middle of an inflamed segment of the colon. There were old sutures in that area indicative of previous repair. A segment of the sigmoid colon proximal and distal to the inflamed area needed to be resected. End to end colo proctostomy was carried out. After the anastomosis was completed the distal rectum was insufflated with air with the bowel clamp on the proximal to the anastomosis bowel and pelvis and anastomotic area was placed under water and air was insufflated and there was no air leak from the anastomosis. There was no other significant findings. It appears that the bladder inside of the fistula was small and there was no retrograde flow of water from the bladder to the outside. However that was not so from the colon side.: Side of the fistula measured about 2 cm in diameter. Procedure Description The patient was interviewed in the preop area. She had a complete bowel prep before surgery day. The procedure was again reviewed with the patient and patient was informed that it is possible that she may require a colostomy, risk benefits and alternatives were discussed with the patient and informed consent was obtained. After that the patient was taken to the operating room and general anesthesia was administered in satisfactory manner. The patient was positioned in the modified lithotomy position with yellowfins. Abdomen groin and genitalia regions are prepped and draped in usual manner. Lower midline incision is made and carried above the umbilicus. Peritoneal cavity was opened and exploration was carried out. The inflammatory mass was noted in the pelvis. The uterus was surgically absent. The sigmoid colon was densely adherent to the bladder. Abdominal wound was retracted and omni track self-retaining retractor was used to retract the abdominal wall and the small bowel was retracted away from the pelvic cavity. The exposure was good. The paracolic gutter on the descending colon was incised and the descending colon was mobilized downwards. Further dissection is carried out in the pelvis and then the adherent sigmoid colon to the bladder was noted. There was dense adhesion of the sigmoid colon with the bladder in the area of the fistula. By the finger fracture technique I was able to identify adhesive bands and divided them. After that I was able to release the colon from the bladder. The opening in the colon is quite evident. Sigmoid colon was then from the bladder area. At this time there is an opening on the bladder side and opening on the colon side. Then I decided to have the nurse instill saline solution into the bladder through the Watkins catheter about 600 to 800 cc of saline was i rrigated in the bladder but there was no water leak from the bladder side it is likely that the opening in the bladder was small and had a flap that did not allow retrograde flow of the urine into the fistula tract. There is an abscess type of area around the fistula tract this was debrided. There were several sutures which were in the colon side there was identified and they were removed. After this I repaired the bladder using 0 Vicryl sutures to close the area of fistula around the bladder. Now the issue came up with the perforation in the colon and how to proceed forward. There was significant amount of inflammation around the colon and I decided to mobilize the sigmoid colon and the proximal rectum. By gentle dissection I was able to mobilize the sigmoid colon which had a phlegmon in it. I identified an area of the colon which was soft and pliable proximal to this inflammatory mass containing fistula opening. I used APRIL 75 to divide the colon at that level. I proceeded to mobilize the rectum in similar manner and I was able to encircle the proximal rectum with a [place] drain. That was a soft pliable area away from the inflammation. I was able to divide that with APRIL 75. After that I had a segment of the colon with the perforation in the middle of the phlegmon. I divided the sigmoid mesentery with Endo seal device. After that I removed the segment of the colon as specimen. Digital photos of the specmen were taken. Now the issue is whether to do colostomy or an end-to-end anastomosis. I felt it was appropriate to do an end-to-end anastomosis with the EEA instrument doing proctocolostomy. I checked for the tension on the anastomosis and the proximal end of the colon gently laid about 5 cm beyond the distal and and the anastomosis would not have any tension on it. After that I proceeded to put a vascular bowel clamp on the proximal bowel and then took the staple line out. I checked and measured the caliber of the lumen with the sizing instruments and it was 28 mm in diameter. So I selected a 29 mm EEA instrument. Then I took the proximal suture line out and placed a pursestring suture around the end of the proximal bowel and placed the anvil inside. Tied the suture pursestring suture around the anvil. After this I examined the EEA instrument and instructed offset assistant press operator how to operate it. Then the offset assistant press operator was instructed in using the sizer dilators dilating anal canal from 25 mm 28 mm and 31 mm. I checked the passage of filator to the proximal staple line of the rectum. The dilators reached the end of the staple rectum easily. After that the EEA instrument was inserted into the rectum and gently advanced to the suture line. At the suture line the spike was advanced through the middle of the rectal staple line and connected to the anvil it was securely connected. After that the stapler was gently closed until it it would not close anymore. We waited for about 2 minutes and then tried to close again and it allowed about 2 turns again to close it. Once it was properly closed the stapler was fired for end-to-end anastomosis. After that we left the stapler in place for about 2 minutes and then gently opened that for about 4 turns and then rotated the stapler slowly and withdrew the stapler. After that I filled up the pelvic cavity with saline solution and I had the offset assistant press operator put in a rigid proctoscope into the rectum and insufflated that with the air. I also placed a proximal bowel clamp proximal to the anastomosis. The rectum and anastomosis and the proximal bowel became inflated with the air. There was no air leak from the anastomosis we tested that for about 5 minutes to see if there would be any air leak there was no air leak then the proximal bowel clamp was removed and the rigid sigmoidoscope was also removed. I examined the anastomotic area and it appears to be in good condition. I went ahead and irrigated the operative field with saline solution laps and instrument counts that were obtained at the time correct x 2. I removed the Omni-Tract self-retaining retractor and examined the rest of the bowel which is underneath and that was all good. After that I proceeded to close the linea alba with 0 PDS continuous suture and interrupted in the middle. Subcutaneous tissue was irrigated and it was loosely approximated by 3-0 Vicryl interrupted stitches. I left the wound and skin open and it was packed with wet saline fluffs. I left the wound open because of the infected colon. She will require wound care postoperatively. Patient condition is very good. Complications none. Anesthesia GETA Drains None. Implants None. Pathology / specimen Other (Sigmoid colon with perforation, sutures from previous procedures, debridement from the fistula tract and the abscess cavity) Estimated Blood Loss 50 Condition Stable Disposition PACU Surgeon Geremias Melchor MD Surgical Staff Operation Date: 02/12/25 11:15 Case Staff BUSINESS LAW TEACHER: Jaiden Whelan RNsenior medical transcriptionist: Oriana Griggs
--- NOTE | 2025-02-13 13:47 | ESPR_ITS ---
Documentation for date of: 02/13/25 Subjective Subjective Brief History: This patient had exploratory laparotomy and resection of the colovesicular fistula and resection of the sigmoid colon and end-to-end anastomosis. This morning she is doing good. The incision was left open with packing and that would require wet-to-dry dressing. The Watkins catheter is in place we will leave the Watkins catheter in place for a period of 1 week. The operative findings and operation was discussed in great detail with the patient patient was informed about what we had done and what we had found. The air leak test after the end-to-end anastomosis with EEA showed there was no air leak. Currently patient has no symptoms. She is getting clear liquid diet. She has a HOUSEKEEPING AIDE and that control the pain. There are no other complaints. Exam Vital Signs Temp Pulse Resp BP Pulse Ox O2 Del Method O2 Flow Rate 97.7 F 94 18 96/55 L 96 Nasal Cannula 1 02/13/25 12:00 02/13/25 12:02/13/25 12:02/13/25 12:02/13/25 12:02/13/25 12:02/13/25 12:00 Narrative Exam Cardiopulmonary examination is unremarkable abdomen wound is pressure dressing dressing is dry and intact abdominal binder is in place. Bowel tones are hypoactive. Extremities are unremarkable patient is on Flowtron's for antiembolism purposes. Assessment & Plan Diagnosis (1) [place]-vesical fistula: Status: Acute (2) Diverticulitis: Status: Acute Plan Encourage patient to get out of the bed and ambulate in the hallways will leave the Watkins catheter in for few more days. Will advance her diet when she starts passing the flatus and/or have bowel movement. PROCEDURES: Procedure Date 02/12/25 Procedures Exploratory laparotomy resection of sigmoid colon and to end anastomosis and repair of colovesicular fistula
[2025-02-13] MEDS: RINGERS LACTATED 1000 ML 1,000 ML 60 ML IV (16:59)
[2025-02-13] MEDS: ATORVASTATIN CALCIUM 20 MG TABLET 10 MG PO (21:46)
[2025-02-14] VITALS (11 sets, daily range): BP systolic 91–125; BP diastolic 61–82; PULSE 83–111; RESP 14–20; TEMP 36.3–37.3; O2SAT 93–96
[2025-02-14] MEDS: KETOROLAC INJ 30 MG/ML VIAL IVP ×3 (05:43→17:33)
[2025-02-14] MEDS: RINGERS LACTATED 1000 ML 1,000 ML 60 ML IV (08:11)
[2025-02-14] MEDS: GABAPENTIN 100 MG CAPSULE 200 MG PO ×2 (08:12→20:51)
[2025-02-14] MEDS: PANTOPRAZOLE 40 MG TABLET PO ×2 (08:12→20:51)
[2025-02-14] MEDS: AMOXICILLIN/POT CLAV 875 TABLET 1 TAB PO (08:12)
--- NOTE | 2025-02-14 08:39 | CHAP ---
Patient was visited by a Spiritual Care Volunteer on 02/13/2025 between 0904 and 1100 and received comfort, encouragement and/or prayer.
--- NOTE | 2025-02-14 14:30 | PC.SS ---
SS follow up note; Patient is POST OP day #1. Patient will discharge home when medically cleared.
[2025-02-14] MEDS: HYDROmorphone 1 MG/ML PCA SYRINGE 30ML PCA (17:08)
[2025-02-14] MEDS: ONDANSETRON ODT 4 MG TABRAP PO (18:11)
--- NOTE | 2025-02-14 18:36 | PD.SURPROG ---
Documentation for date of: 02/14/25 Subjective Subjective Brief History: This patient had exploratory laparotomy and resection of the colovesicular fistula and resection of the sigmoid colon and end-to-end anastomosis. This morning she is doing good. The incision was left open with packing and that would require wet-to-dry dressing. The Watkins catheter is in place we will leave the Watkins catheter in place for a period of 1 week. The operative findings and operation was discussed in great detail with the patient patient was informed about what we had done and what we had found. The air leak test after the end-to-end anastomosis with EEA showed there was no air leak. Currently patient has no symptoms. She is getting clear liquid diet. She has a OPTIMIZATION ENGINEER and that control the pain. There are no other complaints. Postop day 2. 02/14/2025. This patient is status post explore laparotomy and resection of the sigmoid colon and repair of colovesicular fistula. Patient says she has a migraine headache at this time. She is getting pain medication. Tolerating clear liquid diet well and she is passing flatus at this time. Will advance her diet to full liquid diet. Abdominal wound dressing was changed packing was removed and it was repacked looks good there are no other complaints. Exam Vital Signs Temp Pulse Resp BP Pulse Ox O2 Del Method O2 Flow Rate 97.4 F 91 17 94/71 94 L Nasal Cannula 1 02/14/25 15:49 02/14/25 15:49 02/14/25 16:00 02/14/25 15:49 02/14/25 15:49 02/14/25 15:49 02/14/25 15:49 Narrative Exam Abdominal dressing was removed and packing was removed and wound was irrigated with saline solution and it was repacked. Wound looks drainage and there is no cellulitis or infection. Bowel tones are hypoactive. Extremities are unremarkable and cardiopulmonary examination is normal. Patient is send to be using incentive spirometer. Assessment & Plan Diagnosis (1) [place]-vesical fistula: Status: Acute Plan Patient is passing flatus will advance diet to full liquid diet. To get out of the bed and ambulate more. Continue to leave the urinary catheter in place will check the urine culture. PROCEDURES: Procedure Date 02/12/25 Procedures Exploratory laparotomy resection of sigmoid colon and to end anastomosis and repair of colovesicular fistula 02/12/2025
[2025-02-14] MEDS: CEFOXITIN 2 GM in SODIUM CHLORIDE 0.9% (Popper) 50 ML IV (19:45)
[2025-02-14] MEDS: ATORVASTATIN CALCIUM 20 MG TABLET 10 MG PO (20:51)
[2025-02-15] VITALS (11 sets, daily range): BP systolic 93–119; BP diastolic 72–80; PULSE 80–97; RESP 13–18; TEMP 36.1–36.8; O2SAT 95–96
[2025-02-15] MEDS: KETOROLAC INJ 30 MG/ML VIAL IVP ×5 (00:03→23:37)
[2025-02-15] MEDS: CEFOXITIN 2 GM in SODIUM CHLORIDE 0.9% (Popper) 50 ML IV ×5 (00:06→23:39)
[2025-02-15] MEDS: RINGERS LACTATED 1000 ML 1,000 ML 60 ML IV ×2 (00:59→16:44)
[2025-02-15] MEDS: ONDANSETRON ODT 4 MG TABRAP PO (07:19)
[2025-02-15] MEDS: PANTOPRAZOLE 40 MG TABLET PO ×2 (08:10→20:36)
[2025-02-15] MEDS: GABAPENTIN 100 MG CAPSULE 200 MG PO ×2 (08:10→20:35)
[2025-02-15 09:55] LABS: Basophils # (Auto) 0.0 Thou/mm3 (0.0-0.2); Basophils % (Auto) 0 % (0-2.5); Eosinophils # (Auto) 0.2 Thou/mm3 (0.0-0.5); Eosinophils % (Auto) 2 % (0-10); Hematocrit 30.4 % (36.0-46.0); Hemoglobin 9.8 g/dL (12.0-16.0); Immature Granulocytes Auto 0.07 Thou/mm3 (0.00-0.00); Lymphocytes # (Auto) 1.5 Thou/mm3 (1.0-4.8); Lymphocytes % (Auto) 15 % (10-50); Mean Corpuscular HGB Conc 32.2 g/dl (31.0-37.0); Mean Corpuscular Hemoglobin 28.3 pg (25.0-35.0); Mean Corpuscular Volume 88 fL (80-100); Monocytes # (Auto) 0.6 Thou/mm3 (0.0-0.8); Monocytes % (Auto) 6 % (0-12); Neutrophils # (Auto) 7.6 Thou/mm3 (1.8-7.7); Neutrophils % (Auto) 76 % (37-80); Nucleated Red Blood Cell # 0.00 Thou/mm3 (0.00-0.00); Nucleated Red Blood Cell % 0 /100 WBC (0); Platelet Count 287 Thou/mm3 (140-440); RDW Standard Deviation 47.4 fL (36.4-46.3); Red Blood Count 3.46 Miln/mm3 (4.00-5.20); White Blood Count 10.0 Thou/mm3 (3.6-11.0)
[2025-02-15 10:15] LABS: Alanine Aminotransferase 25 U/L (10-49); Albumin, Serum 3.9 gm/dL (3.5-5.0); Albumin/Globulin Ratio 1.8 (1.2-2.2); Alkaline Phosphatase 86 U/L (46-116); Anion Gap 10 (7-16); Aspartate Amino Transferase 21 U/L (0-34); BUN/Creatinine Ratio 10 Ratio (12-20); Bilirubin,Total 0.6 mg/dL (0.3-1.2); Blood Urea Nitrogen 6 mg/dL (9-23); Calcium 8.8 mg/dL (8.3-10.6); Calcium (Corrected) 8.9 mg/dL (8.5-10.1); Carbon Dioxide 25.9 mMol/L (20.0-31.0); Chloride 103 mMol/L (98-107); Creatinine (Component) 0.6 mg/dL (0.6-1.3); Estimated Creatinine Clearance 109.3 mL/min (>60); Globulin 2.2 gm/dL (2.3-3.5); Glucose 180 mg/dL (74-106); Magnesium 1.9 mg/dL (1.6-2.6); Osmolality,Calculated 280 (275-295); Potassium 3.1 mMol/L (3.4-5.1); Sodium 139 mMol/L (136-145); Total Protein 6.1 gm/dL (5.7-8.2); eGFR > 60 See Note
--- NOTE | 2025-02-15 12:56 | PD.SURPROG ---
Documentation for date of: 02/15/25 Subjective Subjective Brief History: This patient had exploratory laparotomy and resection of the colovesicular fistula and resection of the sigmoid colon and end-to-end anastomosis. This morning she is doing good. The incision was left open with packing and that would require wet-to-dry dressing. The Watkins catheter is in place we will leave the Watkins catheter in place for a period of 1 week. The operative findings and operation was discussed in great detail with the patient patient was informed about what we had done and what we had found. The air leak test after the end-to-end anastomosis with EEA showed there was no air leak. Currently patient has no symptoms. She is getting clear liquid diet. She has a KOSHER DIETARY SERVICE MANAGER and that control the pain. There are no other complaints. Postop day 2. 02/14/2025. This patient is status post explore laparotomy and resection of the sigmoid colon and repair of colovesicular fistula. Patient says she has a migraine headache at this time. She is getting pain medication. Tolerating clear liquid diet well and she is passing flatus at this time. Will advance her diet to full liquid diet. Abdominal wound dressing was changed packing was removed and it was repacked looks good there are no other complaints. Postoperative day 3 February 15, 2025. Patient had a migraine attack yesterday and she is feeling better today. She has complained of abdominal pain and she is requiring IV narcotic Dilaudid. She is on IV antibiotics. She has been passing more flatus and she has active bowel tones. She did not have a bowel movement yet. She is not getting out of the bed because she is afraid that her incision will fall apart. The skin was left open because of the colon surgery. Patient is reassured we will get physical therapy to make an assessment and then help her ambulate. Watkins catheter is in place. Will need to check on urine culture. There are no other complaints. Patient is placed on full liquid diet and she is tolerating that so far. The labs show that her potassium was low and she was require potassium replacement. Exam Vital Signs Temp Pulse Resp BP Pulse Ox O2 Del Method O2 Flow Rate 97.2 F 92 15 93/72 96 Nasal Cannula 1 02/15/25 12:02/15/25 12:02/15/25 12:02/15/25 12:02/15/25 12:00 02/15/25 12:00 02/15/25 12:00 Narrative Exam And is in the room and is doing well the cardiopulmonary examination appears to be normal. Abdomen is mildly distended bowel tones are active. Wound dressing is in place and wet-to-dry dressing is carried out by the nursing staff. Back examination normal rectal examination is not done extremities are unremarkable. Patient is not using the incentive spirometer and this will be ordered. Assessment & Plan Diagnosis (1) [place]-vesical fistula: Status: Acute Plan Potassium replacement and check the urine culture. Physical therapy to assist the patient for ambulation. Once patient is starting to have bowel movements and discharge planning would be instituted. PROCEDURES: Procedures Exploratory laparotomy resection of sigmoid colon and to end anastomosis and repair of colovesicular fistula 02/12/2025
[2025-02-15] MEDS: POTASSIUM CHL 10 mEq IVPB 10 MEQ/100 ML BAG 75 MEQ IV ×2 (14:14→15:15)
[2025-02-15 14:48] LABS: Collection Type, Urine Catheter; Squamous Epithelial Cell,Urine 0 /hpf (0-5)
[2025-02-15 15:02] LABS: Bilirubin,Urine Negative (Negative); Blood,Urine 1+ (Negative); Clarity,Urine Clear (Clear/Hazy); Color,Urine Lt-Yellow (Lt Yel-Yel); Culture Indicated,Urine Not Indicated; Glucose, Urine Negative (Negative); Ketones,Urine Trace (Negative); Leukocyte Esterase,Urine Positive (Negative); Nitrite,Urine Negative (Negative); PH,Urine 7.5 (5.0-7.0); Protein,Urine Negative (Neg - Trace); RBC,Urine 3 /hpf (0-3); Specific Gravity,Urine 1.008 (1.001-1.035); Urobilinogen,Urine Negative mg/dL (0.0-1.0); WBC,Urine 4 /hpf (0-5)
--- NOTE | 2025-02-15 16:34 | PC.PT ---
PT eval only. Patient was xI with bed mobility, transfers, and ambulation. Patient is safe to ambulate to the bathroom and in the halls using the IV pole and 1 staff assist. RN made aware.
[2025-02-15] MEDS: ATORVASTATIN CALCIUM 20 MG TABLET 10 MG PO (20:35)
[2025-02-16] VITALS (8 sets, daily range): BP systolic 108–148; BP diastolic 67–89; PULSE 77–99; RESP 11–18; TEMP 36.2–36.7; O2SAT 93–98; BMI 32.8
[2025-02-16] MEDS: KETOROLAC INJ 30 MG/ML VIAL IVP ×3 (05:32→17:16)
[2025-02-16] MEDS: CEFOXITIN 2 GM in SODIUM CHLORIDE 0.9% (Popper) 50 ML IV ×3 (05:34→17:16)
[2025-02-16] MEDS: PANTOPRAZOLE 40 MG TABLET PO ×2 (08:55→20:28)
[2025-02-16] MEDS: GABAPENTIN 100 MG CAPSULE 200 MG PO ×2 (08:55→20:28)
[2025-02-16 09:23] LABS: Basophils # (Auto) 0.0 Thou/mm3 (0.0-0.2); Basophils % (Auto) 0 % (0-2.5); Eosinophils # (Auto) 0.4 Thou/mm3 (0.0-0.5); Eosinophils % (Auto) 4 % (0-10); Hematocrit 31.7 % (36.0-46.0); Hemoglobin 10.3 g/dL (12.0-16.0); Immature Granulocytes Auto 0.05 Thou/mm3 (0.00-0.00); Lymphocytes # (Auto) 1.9 Thou/mm3 (1.0-4.8); Lymphocytes % (Auto) 22 % (10-50); Mean Corpuscular HGB Conc 32.5 g/dl (31.0-37.0); Mean Corpuscular Hemoglobin 28.2 pg (25.0-35.0); Mean Corpuscular Volume 87 fL (80-100); Monocytes # (Auto) 0.6 Thou/mm3 (0.0-0.8); Monocytes % (Auto) 7 % (0-12); Neutrophils # (Auto) 5.9 Thou/mm3 (1.8-7.7); Neutrophils % (Auto) 67 % (37-80); Nucleated Red Blood Cell # 0.00 Thou/mm3 (0.00-0.00); Nucleated Red Blood Cell % 0 /100 WBC (0); Platelet Count 315 Thou/mm3 (140-440); RDW Standard Deviation 46.1 fL (36.4-46.3); Red Blood Count 3.65 Miln/mm3 (4.00-5.20); White Blood Count 8.8 Thou/mm3 (3.6-11.0)
[2025-02-16 09:57] LABS: Alanine Aminotransferase 27 U/L (10-49); Albumin, Serum 3.9 gm/dL (3.5-5.0); Albumin/Globulin Ratio 1.9 (1.2-2.2); Alkaline Phosphatase 96 U/L (46-116); Anion Gap 10 (7-16); Aspartate Amino Transferase 25 U/L (0-34); BUN/Creatinine Ratio 10 Ratio (12-20); Bilirubin,Total 0.5 mg/dL (0.3-1.2); Blood Urea Nitrogen 6 mg/dL (9-23); Calcium 8.9 mg/dL (8.3-10.6); Calcium (Corrected) 9.0 mg/dL (8.5-10.1); Carbon Dioxide 25.7 mMol/L (20.0-31.0); Chloride 103 mMol/L (98-107); Creatinine (Component) 0.6 mg/dL (0.6-1.3); Estimated Creatinine Clearance 109.3 mL/min (>60); Globulin 2.1 gm/dL (2.3-3.5); Glucose 122 mg/dL (74-106); Magnesium 1.8 mg/dL (1.6-2.6); Osmolality,Calculated 276 (275-295); Potassium 3.2 mMol/L (3.4-5.1); Sodium 139 mMol/L (136-145); Total Protein 6.0 gm/dL (5.7-8.2); eGFR > 60 See Note
--- NOTE | 2025-02-16 10:49 | PC.WOUND ---
Dressing changed today at this time. Cleansed with normal saline, applied fluffs, covered with abd pad and medipore tape. Abd binder in place. Pt tolerated well.
--- NOTE | 2025-02-16 12:15 | PC.NURSE ---
Pt ambulated to bathroom. Voided x1 without any problems. Tolerated well.
[2025-02-16] MEDS: HYDROmorphone INJ 2 MG/ML VIAL 1 MG IVP ×2 (13:25→20:20)
--- NOTE | 2025-02-16 15:42 | PC.SS ---
Follow up note: Removed folley. Pt has open abdominal wound. Dressing changes. Pt has not passed gas. On IV antibiotic. Pt will return home upon dc.
[2025-02-16] MEDS: RINGERS LACTATED 1000 ML 1,000 ML 60 ML IV (16:54)
--- NOTE | 2025-02-16 18:18 | PD.SURPROG ---
Documentation for date of: 02/16/25 Subjective Subjective Brief History: This patient had exploratory laparotomy and resection of the colovesicular fistula and resection of the sigmoid colon and end-to-end anastomosis. This morning she is doing good. The incision was left open with packing and that would require wet-to-dry dressing. The Watkins catheter is in place we will leave the Watkins catheter in place for a period of 1 week. The operative findings and operation was discussed in great detail with the patient patient was informed about what we had done and what we had found. The air leak test after the end-to-end anastomosis with EEA showed there was no air leak. Currently patient has no symptoms. She is getting clear liquid diet. She has a COMMUNICATIONS PROGRAM MANAGER and that control the pain. There are no other complaints. Postop day 2. 02/14/2025. This patient is status post explore laparotomy and resection of the sigmoid colon and repair of colovesicular fistula. Patient says she has a migraine headache at this time. She is getting pain medication. Tolerating clear liquid diet well and she is passing flatus at this time. Will advance her diet to full liquid diet. Abdominal wound dressing was changed packing was removed and it was repacked looks good there are no other complaints. Postoperative day 3 February 15, 2025. Patient had a migraine attack yesterday and she is feeling better today. She has complained of abdominal pain and she is requiring IV narcotic Dilaudid. She is on IV antibiotics. She has been passing more flatus and she has active bowel tones. She did not have a bowel movement yet. She is not getting out of the bed because she is afraid that her incision will fall apart. The skin was left open because of the colon surgery. Patient is reassured we will get physical therapy to make an assessment and then help her ambulate. Watkins catheter is in place. Will need to check on urine culture. There are no other complaints. Patient is placed on full liquid diet and she is tolerating that so far. The labs show that her potassium was low and she was require potassium replacement. Return today for February 16, 2025 patient had 2 bowel movements today she is tolerating full liquid diet well her potassium was 3.1 she got 20 mEq of KCl yesterday this morning it is 3.2 she is going to need more KCl. Happy because the Watkins catheter is out so she can walk more. She is passing more flatus. She did not get out of the bed today. She is worried that her incision will open up because she has been getting the packing in the incision on the abdomen wound. She is observed to use the incentive spirometer. She will get advancement in her diet to soft diet. She needs to ambulate more and we may be able to discharge her tomorrow. Exam Vital Signs Temp Pulse Resp BP Pulse Ox O2 Del Method O2 Flow Rate 97.4 F 94 18 108/83 95 Room Air 1 02/16/25 16:02/16/25 16:02/16/25 16:02/16/25 16:02/16/25 16:02/16/25 16:02/16/25 08:08 Narrative Exam Abdomen is nondistended bowel tones are present the incision looks good the dressing was changed and wound was irrigated and there is no infection or drainage. The wound was packed with wet fluffs. Cardiopulmonary examination is unremarkable extremities are unremarkable. Assessment & Plan Diagnosis (1) [place]-vesical fistula: Status: Acute (2) Status post colectomy: Status: Acute Plan Advance diet to soft diet patient to ambulate tomorrow will replace potassium the open skin wound and need to have secondary closure and this will be arranged. PROCEDURES: Procedures Exploratory laparotomy resection of sigmoid colon and to end anastomosis and repair of colovesicular fistula 02/12/2025
[2025-02-16] MEDS: POTASSIUM CHL 10 mEq IVPB 100 ML 50 MEQ IV ×2 (18:40→21:11)
[2025-02-16] MEDS: ATORVASTATIN CALCIUM 20 MG TABLET 10 MG PO (20:28)
[2025-02-16] MEDS: ONDANSETRON ODT 4 MG TABRAP PO (21:10)
[2025-02-17] VITALS (9 sets, daily range): BP systolic 98–127; BP diastolic 57–88; PULSE 68–103; RESP 16–18; TEMP 36.2–36.9; O2SAT 94–97
[2025-02-17] MEDS: KETOROLAC INJ 30 MG/ML VIAL IVP ×5 (00:33→23:46)
[2025-02-17] MEDS: CEFOXITIN 2 GM in SODIUM CHLORIDE 0.9% (Popper) 50 ML IV ×5 (00:36→23:46)
--- NOTE | 2025-02-17 08:11 | PD.SURPROG ---
Documentation for date of: 02/17/25 Subjective Subjective Brief History: This patient had exploratory laparotomy and resection of the colovesicular fistula and resection of the sigmoid colon and end-to-end anastomosis. This morning she is doing good. The incision was left open with packing and that would require wet-to-dry dressing. The Watkins catheter is in place we will leave the Watkins catheter in place for a period of 1 week. The operative findings and operation was discussed in great detail with the patient patient was informed about what we had done and what we had found. The air leak test after the end-to-end anastomosis with EEA showed there was no air leak. Currently patient has no symptoms. She is getting clear liquid diet. She has a [employer] and that control the pain. There are no other complaints. Postop day 2. 02/14/2025. This patient is status post explore laparotomy and resection of the sigmoid colon and repair of colovesicular fistula. Patient says she has a migraine headache at this time. She is getting pain medication. Tolerating clear liquid diet well and she is passing flatus at this time. Will advance her diet to full liquid diet. Abdominal wound dressing was changed packing was removed and it was repacked looks good there are no other complaints. Postoperative day 3 February 15, 2025. Patient had a migraine attack yesterday and she is feeling better today. She has complained of abdominal pain and she is requiring IV narcotic Dilaudid. She is on IV antibiotics. She has been passing more flatus and she has active bowel tones. She did not have a bowel movement yet. She is not getting out of the bed because she is afraid that her incision will fall apart. The skin was left open because of the colon surgery. Patient is reassured we will get physical therapy to make an assessment and then help her ambulate. Watkins catheter is in place. Will need to check on urine culture. There are no other complaints. Patient is placed on full liquid diet and she is tolerating that so far. The labs show that her potassium was low and she was require potassium replacement. Postoperative day 4 February 16, 2025 patient had 2 bowel movements today she is tolerating full liquid diet well her potassium was 3.1 she got 20 mEq of KCl yesterday this morning it is 3.2 she is going to need more KCl. Happy because the Watkins catheter is out so she can walk more. She is passing more flatus. She did not get out of the bed today. She is worried that her incision will open up because she has been getting the packing in the incision on the abdomen wound. She is observed to use the incentive spirometer. She will get advancement in her diet to soft diet. She needs to ambulate more and we may be able to discharge her tomorrow. Postoperative day 5 February 17, 2025: This patient had 1 bowel movement yesterday and is she is walking more. Patient have made about 5 rounds around the clock on the third floor. Her potassium was 3.5 and her magnesium was 1.3 so she is getting magnesium replacement. She has been passing a large amount of flatus. She has no complaints of abdominal pain and she is not passing any air through the urine anymore. She has been placed on regular diet as she has been having multiple bowel movements and regularly passing flatus. Will reduce the IV fluids and IV narcotics and place her on oral pain medications. There are no other new complaints. Patient is concerned about the abdominal wound where the wound is open and this was examined and I put the Steri-Strips to bring the skin together as there is no inflammation or drainage. Patient is wearing abdominal binder. All in all the patient has improved significantly. Exam Vital Signs Temp Pulse Resp BP Pulse Ox O2 Del Method O2 Flow Rate 97.5 F 83 16 98/57 L 94 L Room Air 1 02/17/25 04:00 02/17/25 04:00 02/17/25 04:00 02/17/25 04:00 02/17/25 04:00 02/17/25 04:00 02/16/25 08:08 Narrative Exam Patient seems to be happier as she has a lipstick sign she is eating solid food she is getting in and out of the bed by herself without much help she is also walking in the hallways cardiopulmonary examination is normal extremities are unremarkable abdominal wound dressing is changed the packing is removed and the skin edges were brought together with Steri-Strips. Bowel tones are normal. There are no other remarkable issues. Assessment & Plan Diagnosis (1) Status post colectomy: Status: Acute (2) [place]-vesical fistula: Status: Acute Plan Continue IV fluids discontinue IV narcotics Place patient on oral pain medication discharge planning for tomorrow. Continue with the magnesium 4 g replacement this should be done overnight and in the morning she can be discharged home. PROCEDURES: Procedure Date 02/12/25 Procedures Exploratory laparotomy resection of sigmoid colon and to end anastomosis and repair of colovesicular fistula 02/12/2025
[2025-02-17] MEDS: PANTOPRAZOLE 40 MG TABLET PO ×2 (08:19→20:55)
[2025-02-17] MEDS: HYDROmorphone INJ 2 MG/ML VIAL 1 MG IVP ×2 (08:19→14:49)
[2025-02-17] MEDS: GABAPENTIN 100 MG CAPSULE 200 MG PO ×2 (08:19→20:55)
[2025-02-17] MEDS: RINGERS LACTATED 1000 ML 1,000 ML 60 ML IV (08:20)
[2025-02-17 09:52] LABS: Basophils # (Auto) 0.0 Thou/mm3 (0.0-0.2); Basophils % (Auto) 0 % (0-2.5); Eosinophils # (Auto) 0.4 Thou/mm3 (0.0-0.5); Eosinophils % (Auto) 4 % (0-10); Hematocrit 31.6 % (36.0-46.0); Hemoglobin 10.4 g/dL (12.0-16.0); Immature Granulocytes Auto 0.04 Thou/mm3 (0.00-0.00); Lymphocytes # (Auto) 1.9 Thou/mm3 (1.0-4.8); Lymphocytes % (Auto) 19 % (10-50); Mean Corpuscular HGB Conc 32.9 g/dl (31.0-37.0); Mean Corpuscular Hemoglobin 28.5 pg (25.0-35.0); Mean Corpuscular Volume 87 fL (80-100); Monocytes # (Auto) 0.7 Thou/mm3 (0.0-0.8); Monocytes % (Auto) 7 % (0-12); Neutrophils # (Auto) 7.3 Thou/mm3 (1.8-7.7); Neutrophils % (Auto) 70 % (37-80); Nucleated Red Blood Cell # 0.00 Thou/mm3 (0.00-0.00); Nucleated Red Blood Cell % 0 /100 WBC (0); Platelet Count 377 Thou/mm3 (140-440); RDW Standard Deviation 45.9 fL (36.4-46.3); Red Blood Count 3.65 Miln/mm3 (4.00-5.20); White Blood Count 10.4 Thou/mm3 (3.6-11.0)
[2025-02-17 10:03] LABS: Alanine Aminotransferase 26 U/L (10-49); Albumin, Serum 3.8 gm/dL (3.5-5.0); Albumin/Globulin Ratio 1.7 (1.2-2.2); Alkaline Phosphatase 106 U/L (46-116); Anion Gap 10 (7-16); Aspartate Amino Transferase 18 U/L (0-34); BUN/Creatinine Ratio 9 Ratio (12-20); Bilirubin,Total 0.5 mg/dL (0.3-1.2); Blood Urea Nitrogen 6 mg/dL (9-23); Calcium 9.1 mg/dL (8.3-10.6); Calcium (Corrected) 9.3 mg/dL (8.5-10.1); Carbon Dioxide 26.8 mMol/L (20.0-31.0); Chloride 103 mMol/L (98-107); Creatinine (Component) 0.7 mg/dL (0.6-1.3); Estimated Creatinine Clearance 93.7 mL/min (>60); Globulin 2.3 gm/dL (2.3-3.5); Glucose 121 mg/dL (74-106); Magnesium 1.3 mg/dL (1.6-2.6); Osmolality,Calculated 278 (275-295); Potassium 3.5 mMol/L (3.4-5.1); Sodium 140 mMol/L (136-145); Total Protein 6.1 gm/dL (5.7-8.2); eGFR > 60 See Note
[2025-02-17] MEDS: Magnesium Sulfate 4 GM Ivpb 4 GM/50 ML BAG IV (14:41)
--- NOTE | 2025-02-17 17:40 | ESDS_ITS ---
Planned Discharge Date 02/18/25 DS: Providers Provider Date of admission: 02/12/25 20:05 Primary care physician: MADELAINE Tabares([facility], [facility]) Admitting Provider: Geremias Melchor MD Attending Provider on Admission: Geremias Melchor MD Consults: 02/15/25 13:44 Referral Physical Therapy Routine Comment: Physician Instructions: Instructions: Assessment and assist in ambulation Attending Provider on DC: Geremias Melchor MD Discharging Provider: Geremias Melchor MD Diagnosis Discharge Diagnosis (1) [place]-vesical fistula: Status: Acute (2) Status post colectomy: Status: Acute (3) UTI (urinary tract infection): Status: Acute Problem List Completed Was Problem List Reviewed/Reconciled?: Yes Hospital Course This patient was admitted electively due to colovesicular fistula. She had feces and gas passing through the urine all the time with severe urinary tract infection. She underwent bowel prep and then underwent external laparotomy and a colovesicular fistula was found the fistula was lysed and then segment of the sigmoid colon was resected with the end the end anastomosis with coloproctostomy with the EEA 29 mm. After the anastomosis the air leak test was carried out with insufflation of the air into the rectum with the colon block with a vascula r clamp of proximal to mid anastomosis and underwater there was no air leak the anastomosis was noted to be good. The bladder fistula was repaired. It was an infected colon case the fascia was closed but skin and subtenons tissue was left open with packing. Regular packing and wound care was carried out on the on the floor. Last day of hospitalization on day 5 the skin incision was closed with Steri-Strips as there was no evidence of infection and no drainage. Postoperatively patient was kept on the liquid diet. Due to the bladder repair patient required a Watkins catheter for 4 days and then it was removed. During surgery the bladder fistula was tested with retrograde insufflation of the bladder with saline solution through the Watkins catheter in the operating room and there was no retrograde leakage and therefore I felt comfortable to remove the Watkins catheter in 4 days. She was started on clear liquid diet she started passing flatus from the rectum and had few small bowel movements. Her potassium and magnesium were low so she required IV replacement of potassium and magnesium over. Of the past few days and the potassium was corrected to 3.5 magnesium was still low so she is getting more magnesium replacement. She started ambulating more and IV narcotic pain control was slowly reduced. At this time she is able to eat regular food she is able to walk around the llamas for several rounds and she is feeling stronger and is able to take care of activities of daily life. Therefore she is being discharged home to be followed in Dr. Melchor's office within 7 days. She will wear the abdominal binder for about 3 months. Further management will be outpatient basis. The pain management will be by oral hydrocodone. Status at Discharge Functional status at discharge: independent ambulation Overall status at discharge: patient is progressing back to baseline Exam Vital Signs Temp Pulse Resp BP Pulse Ox O2 Del Method O2 Flow Rate 97.3 F 83 17 115/88 H 96 Room Air 1 02/17/25 16:00 02/17/25 16:00 02/17/25 16:00 02/17/25 16:00 02/17/25 16:00 02/17/25 16:02/17/25 16:00 Narrative Exam And is noted to be ambulating in the hallways she is using the incentive spirometer well the cardiopulmonary examination is normal abdomen is nondistended bowel tones are present redressed and a sterile tape extremities are unremarkable. Discharge Plan Plan Patient Disposition: HOME (Self Care) Disposition Comment: Condition markedly improved. Care Plan Goals: Take shower after 48 hours to cover the incision dressing with Saran wrap. Follow-up in the office in 1 week not to lift anything heavier than 10 pounds for 3 months wear the abdominal binder for 3 months D?chese despu?s de 48 horas para cubrir el vendaje de la incisi?n con film transparente. Pati semana despu?s, acuda al consultorio para que le indiquen que no debe levantar nada que pese m?s de 4.5 kg jason 3 meses y que debe usar la faja abdominal jason 3 meses. Prescriptions/Referrals Prescriptions/Med Rec: New hydrocodone-acetaminophen 10-325 mg tablet 1 tab PO Q6H MDD 4 PRN (Reason: pain) Qty: 20 0RF Continued ondansetron 4 mg tablet,disintegrating 4 mg PO Q8H PRN (Reason: nausea and vomiting) Qty: 20 0RF omeprazole 40 mg capsule,delayed release(DR/EC) 40 mg PO DAILY Patient Comments: take 1 capsule by mouth once daily BEFORE A MEAL fluoxetine 20 mg capsule 20 mg PO DAILY Patient Comments: take 1 capsule by mouth every morning cholecalciferol (vitamin D3) [Vitamin D3] 50 mcg (2,000 unit) tablet 10,000 unit PO QWEEK atorvastatin 40 mg tablet 10 mg PO HS Patient Comments: take 1 tablet by mouth once daily sumatriptan succinate [Imitrex] 50 mg tablet 50 mg PO DAILY PRN (Reason: migraine headache) Patient Comments: prescribed by md in [place] last hospitalization Rx Instructions: do not exceed 4 doses per 24 hrs amoxicillin-pot clavulanate 875-125 mg tablet 1 tab PO DAILY Patient Comments: TAKE 1 TABLET BY MOUTH TWICE DAILY FOR 7 DAYS Discontinued hydrocodone-acetaminophen 7.5-325 mg tablet 1 tab PO Q6H PRN (Reason: pain) Referrals: Devi ([facility]),Angely, [employer] [Primary Care Provider] - Patient/Caregiver Discharge Instructions Other Discharge Activity Instructions:: Take shower after 48 hours to cover the incision dressing with Saran wrap. Follow-up in the office in 1 week not to lift anything heavier than 10 pounds for 3 months wear the abdominal binder for 3 months D?chese despu?s de 48 horas para cubrir el vendaje de la incisi?n con film transparente. Pati semana despu?s, acuda al consultorio para que le indiquen que no debe levantar nada que pese m?s de 4.5 kg jason 3 meses y que debe usar la faja abdominal jason 3 meses. Other Discharge Diet Instructions: Add to regular diet as tolerated Education Materials: Exploratory Laparotomy, Nutrition After Surgery, Measuring Your Pain, Medicine for Pain, Preventing Surgical Site Infections, Managing Post-Op Pain at Home Print Language: [place]an Stand Alone Forms: [facility] Award Info., Patient Portal Info Letter Discharge Order Discharge Orders: Discharge (Routine); Ordered 02/18/25 Ordered By: Geremias Melchor Results Results: Laboratory Laboratory Narrative: Potassium and magnesium were low and patient received infusion of potassium chloride several milliequivalent bags and also magnesium sulfate was infused per correction of the levels. PROCEDURES: Procedure Date 02/12/25 Procedures Exploratory laparotomy resection of sigmoid colon and to end anastomosis and repair of colovesicular fistula 02/12/2025
[2025-02-17] MEDS: ATORVASTATIN CALCIUM 20 MG TABLET 10 MG PO (21:02)
[2025-02-18] VITALS: BP 109/78; PULSE 81; RESP 18; TEMP 36.3; O2SAT 95
[2025-02-18] MEDS: RINGERS LACTATED 1000 ML 1,000 ML 60 ML IV (03:24)
[2025-02-18 04:00] VITALS: BP 96/66; PULSE 79; RESP 18; TEMP 36.1; O2SAT 96
[2025-02-18] MEDS: CEFOXITIN 2 GM in SODIUM CHLORIDE 0.9% (Popper) 50 ML IV (05:27)
[2025-02-18] MEDS: KETOROLAC INJ 30 MG/ML VIAL IVP (05:28)
[2025-02-18 08:00] VITALS: BP 115/82; PULSE 78; RESP 16; TEMP 36.1; O2SAT 98
--- NOTE | 2025-02-18 08:00 | PC.NURSE ---
Discharge orders in, pt hesitant because she has not had a solid bowel movement yet but feels it may be soon. Active bowel sounds. Prune juice offered.
[2025-02-18 08:31] VITALS: PULSE 92; RESP 18; O2SAT 98
[2025-02-18] MEDS: GABAPENTIN 100 MG CAPSULE 200 MG PO (09:33)
[2025-02-18] MEDS: PANTOPRAZOLE 40 MG TABLET PO (09:34)
--- NOTE | 2025-02-18 10:13 | PC.NURSE ---
Pt has now had a bowel movement and is ready for discharge
== END 2025-02-18 11:25 | disposition home or self-care (01) | DRG 441 ==
LOC: S3SX 20:06
PROVIDERS: Admitting Provider Specialist; PCP Nurse Practitioner Primary Care; Referring Provider Specialist; Visit Provider Specialist
PROC: 0DTN0ZZ Resection of Sigmoid Colon, Open Approach (ICD-10-PCS; CPT 49000; principal; 2025-02-12 11:00)
DX: N32.1 Vesicointestinal fistula (principal); G43.909 Migraine, unspecified, not intractable, without status migrainosus; K66.0 Peritoneal adhesions (postprocedural) (postinfection); K57.32 Diverticulitis of large intestine without perforation or abscess without bleeding; N39.0 Urinary tract infection, site not specified; Z93.3 Colostomy status
CPT/HCPCS: 36415; 80053; 81001; 83735; 85025; 85730; 97161; A4217; A4649; J0131; J0694; J1100; J1171; J1885; J2250; J2405; J2704; J3010; J3475; J3480; J3490; J7050; J7120; Q0162; A9270

== ENCOUNTER → 2025-05-08 | Outpatient (CLI) | payer MEDICAID, SELFPAY ==
--- NOTE | 2025-05-08 15:00 | XR_ITS ---
Examination: CT pelvis with intravenous contrast, 2-D sagittal reconstructions. 2-D coronal reconstructions. 3-D reconstructions. Date and time of exam: May 08, 2025, 1548 hours, comparison January 29, 2025 INDICATIONS: History acute sigmoid diverticulitis, abdominal pain post hysterectomy CTDI: vol (mGy): 22.5 DLP: (mGycm): 471 Technique: Multiple 1.25 mm axial sections of the pelvis post intravenous administration 60 cc Isovue-370 have been obtained. 2-D sagittal and coronal reconstructions have been obtained. 3-D reconstructions have been obtained. Low dose protocols were performed. One or more of the following dose reduction techniques were used; automated exposure control, adjustment of the mA and/or KV according to patient size, use of iterative reconstruction technique. Findings: 20 mm fat-containing umbilical hernia No bowel obstruction Colonic diverticulosis, no definite diverticulitis Urinary bladder intact Absent uterus No perineal abscess Minimal cellulitis in the left perineum IMPRESSION: 20 mm fat-containing umbilical hernia Colonic diverticulosis, no diverticulitis No peritoneal or perianal abscess Minimal cellulitis in the left perineum
== END | disposition home or self-care (01) ==
PROVIDERS: PCP Nurse Practitioner Primary Care; Referring Provider Obstetrics & Gynecology; Visit Provider Obstetrics & Gynecology
DX: K42.9 Umbilical hernia without obstruction or gangrene (principal); K57.30 Diverticulosis of large intestine without perforation or abscess without bleeding; L03.818 Cellulitis of other sites
CPT/HCPCS: 72193; A4649; Q9967

== ENCOUNTER → 2025-05-28 | Outpatient (CLI) | payer MEDICAID, SELFPAY ==
--- NOTE | 2025-05-28 16:00 | XR_ITS ---
EXAMINATION: Thyroid sonography complete TECHNIQUE: Grayscale sonographic images thyroid lobes INDICATIONS: Difficulty swallowing months, thyroid nodules on CT soft tissue neck December 08, 2024 FINDINGS: Right thyroid 5.5 cm Upper pole nodule 18 x 14 mm Mid pole nodule 12 x 11 mm Lower pole nodule 15 x 14 mm Isthmus nodule 8 x 8 mm Left thyroid 5.3 cm Multiple upper pole nodules, the largest 10 x 6 mm Lower pole nodule 11 x 11 mm Multiple smaller bilateral nodules IMPRESSION: Thyromegaly Thyroid nodules as above Consider ultrasound-guided biopsy of the upper pole right thyroid nodule and lower pole left thyroid nodule
== END | disposition home or self-care (01) ==
PROVIDERS: PCP Nurse Practitioner Primary Care; Referring Provider Nurse Practitioner Primary Care; Visit Provider Nurse Practitioner Primary Care
DX: E01.0 Iodine-deficiency related diffuse (endemic) goiter (principal)
CPT/HCPCS: 76536